=== PATIENT | female | born 1995 | race Caucasian/White ===

== ENCOUNTER 2018-02-21 02:45 | Outpatient (CLI) | payer OTHER, SELFPAY ==
[2018-02-21 02:58] VITALS: BMI 27.6
[2018-02-21 03:08] LABS: Microscopic, Urine URINE MICROSCOPIC (MICROSCOPIC)
[2018-02-21 03:09] LABS: Appearance,Urine CLEAR (Clear); Bilirubin,Urine Negative (Negative); Blood, Urine TRACE-I (Negative); Color,Urine YELLOW (Yellow); Glucose,Urine (UA) Negative (Negative); Ketones,Urine Negative (Negative); Leukocyte Esterase,Urine 1+ (Negative); Nitrate,Urine Negative (Negative); Protein,Urine Negative (Negative); Specific Gravity, Urine 1.015 (1.005-1.030)
[2018-02-21 03:11] VITALS: BP 103/58; PULSE 82; RESP 16; TEMP 37.1; O2SAT 99; BMI 27.6
[2018-02-21 03:17] LABS: Amphetamine/Metha Screen,Urine Negative ng/mL (<1000); Barbiturates Screen,Urine Negative ng/mL (<200); Benzodiazepines Screen,Urine Negative ng/mL (200); Cannabinoid Screen,Urine Negative ng/mL (<50); Cocaine Screen,Urine Negative ng/g (<300); Methadone Screen,Urine Negative ng/mL (<300); Opiate Screen,Urine Negative ng/mL (<300); Phencyclidine Screen,Urine Negative ng/mL (<25)
[2018-02-21 03:19] LABS: Bacteria,Urine 1+ /lpf; Mucus,Urine 1+ /lpf
== END 2018-02-21 03:32 | disposition home or self-care (01) ==
LOC: OBOUT 02:49 → OB 02:51
PROVIDERS: Visit Provider Obstetrics & Gynecology
DX: O36.8120 Decreased fetal movements, second trimester, not applicable or unspecified (principal); Z3A.22 22 weeks gestation of pregnancy
CPT/HCPCS: 80305; 81001; 87086

== ENCOUNTER 2020-05-14 13:00 | Emergency (ER) | payer BC, SELFPAY ==
[2020-05-14 13:23] VITALS: BP 108/68; PULSE 113; RESP 16; TEMP 37.1; O2SAT 98; BMI 22.4
--- NOTE | 2020-05-14 13:57 | HMH.EDUTC ---
[facility] [place] Impression: Viral syndrome, Bronchitis Disposition: Home, Self-Care Condition on Discharge: Good Instructions: DI for Viral Syndrome Additional Instructions: Drink plenty of fluids. Take tylenol for pain or fever. Take the medications as directed. Follow up with your regular doctor. GO TO THE ER FOR ANY WORSENING SYMPTOMS FOLLOW THE DIRECTIONS ON THE COVID-19 HAND OUT THAT WE GAVE YOU REGARDING SELF-ISOLATION UNTIL YOU KNOW YOUR COVID-19 RESULTS Prescriptions: Brompheniramine/Pseudoephed/Dm [Bromfed Dm Cough Syrup] 5 ml PO Q6HP PRN #240 syrup PRN Reason: Cough Transmission Status: Received by [facility] #[id number] Ondansetron [Zofran 4mg ODT] 4 mg PO Q8HP PRN #10 tab.rapdis PRN Reason: Nausea Transmission Status: Received by [facility] #[id number] Cefdinir [Omnicef 300mg Capsule] 300 mg PO BID #20 cap Transmission Status: Received by [facility] #[id number] Referrals: Reuben Beauchamp MD [Primary Care Provider] - Forms: Work/School Release Time of Disposition: 14:00 Medical Decision Making - Medical Records Medical records reviewed: No: I reviewed the patient's medical records. - Brayan Inquiry Pt receiving controlled substance: No Vital Signs: 05/14/20 13:23 05/14/20 14:13 Temperature 98.8 F 98.8 F Temperature Source Oral Pulse Rate 113 H Pulse Rate [Right Brachial] 113 H Respiratory Rate 16 16 Blood Pressure 108/68 L Blood Pressure [Right Arm] 108/68 L Blood Pressure Mean [Right Arm] 81 Blood Pressure Source [Right Arm] Automatic Cuff Blood Pressure Position [Right Arm] Sitting 02 Sat by Pulse Oximetry 98 Oxygen Delivery Method Room Air - Lab Data Lab results reviewed: Yes: I reviewed the patient's lab results. Lab Results 05/14/20 13:17: Strep Scn [facility] Negative 05/14/20 13:25: COVID-19 PCR Not detected 05/14/20 13:45: Influenza Type A Ag Negative, Influenza Type B Ag Negative 05/14/20 14:30: Chlamy pneumoniae PCR Not detected, Adenovirus (PCR) Not detected, B. pertussis DNA (PCR) Not detected, Coronavirus OC43 (PCR) Not detected, Coronavirus HKU1 (PCR) Not detected, Coronavirus 229E (PCR) Not detected, Coronavirus NL63 (PCR) Not detected, Human Metapneumovir PCR Not detected, Influenza A (H1) PCR Not detected, Influ A (H1N1/09) PCR Not detected, Influenza A (H3) PCR Not detected, Influenza Type A (PCR) Not detected, Influenza Type B (PCR) Not detected, M. pneumoniae (PCR) Not detected, Parainfluenza 1 (PCR) Not detected, Parainfluenza 2 (PCR) Not detected, Parainfluenza 3 (PCR) Not detected, Parainfluenza 4 (PCR) Not detected, RSV (PCR) Not detected, Entero/Rhino (PCR) Detected [facility] [place] - General Stated complaint: cough,fever,runny nose,nose Time Seen by Provider: 05/14/20 13:30 Mode of Arrival: Ambulatory Source of Information: Patient Limitations: No Limitations Description of Symptoms (Recalled from Triage Doc. by RN): PATIENT C/O COUGH, FEVER, NAUSEA, RUNNY NOSE, CHILLS, AND MUSCLE ACHES HEENT Symptoms (Recalled from RN notes): No Resp Symptoms (Recalled from RN notes): Yes Skin Symptoms (Recalled from RN notes): No MS Symptoms (Recalled from RN notes): Yes Functional Status (Recalled from RN notes): wnl - History of Present Illness Provider Complaint: She c/o around 10 days of upper respiratory congestion, fever up to 102.8, feeling bad and a cough. - Related Data Previous Rx's Medication Instructions Recorded Brompheniramine/Pseudoephed/Dm 5 ml PO Q6HP PRN #240 syrup 05/14/20 [Bromfed Dm Cough Syrup] Cefdinir [Omnicef 300mg Capsule] 300 mg PO BID #20 cap 05/14/20 Ondansetron [Zofran 4mg ODT] 4 mg PO Q8HP PRN #10 tab.rapdis 05/14/20 Allergies Allergy/AdvReac Type Severity Reaction Status Date / Time erythromycin base Allergy Intermediate WHIVES AND Verified 06/20/18 04:52 [From ERYTHROCIN] FEVER Sulfa (Sulfonamide Allergy Mild Verified 07/21/19 21:49 Antibiotic
[2020-05-14 14:13] VITALS: BP 108/68; PULSE 113; RESP 16; TEMP 37.1; O2SAT 98
[2020-05-14 14:23] LABS: UTC Strep Screen (Rapid) Negative (Negative)
[2020-05-14 14:24] LABS: UTC Influenza A Antigen Negative (Negative); UTC Influenza B Antigen Negative (Negative)
[2020-05-14 14:41] LABS: Adenovirus,PCR Not Detected (NotDetected); Bordetella Pertussis Not Detected (NotDetected); Chlamydophila Pneumoniae, PCR Not Detected (NotDetected); Coronavirus 229E Not Detected (NotDetected); Coronavirus NL63 Not Detected (NotDetected); Coronavirus OC43 Not Detected (NotDetected); Coronovirus HKU1,PCR Not Detected (NotDetected); Human Metapneumovirus Not Detected (NotDetected); Influenza A, PCR Not Detected (NotDetected); Influenza AH1, 2009 Not Detected (NotDetected); Influenza AH1, PCR Not Detected (NotDetected); Influenza AH3,PCR Not Detected (NotDetected); Influenza B, PCR Not Detected (NotDetected); Mycoplasma Pneumoniae, PCR Not Detected (NotDetected); Parainfluenza 1, PCR Not Detected (NotDetected); Parainfluenza 2, PCR Not Detected (NotDetected); Parainfluenza 3, PCR Not Detected (NotDetected); Parainfluenza 4, PCR Not Detected (NotDetected); Respiratory Syncytial Virus Not Detected (NotDetected)
[2020-05-14 15:59] LABS: Rhinovirus/Enterovirus Detected (NotDetected)
[2020-05-16 00:25] LABS: Covid-19 Nasal PCR Sendout Lex NOT DETECTED
== END 2020-05-14 14:18 | disposition home or self-care (01) ==
PROVIDERS: Emergency Provider Nurse Practitioner Family; PCP Family Medicine
DX: B34.9 Viral infection, unspecified (principal); J20.9 Acute bronchitis, unspecified; Z03.818 Encounter for observation for suspected exposure to other biological agents ruled out; Z88.1 Allergy status to other antibiotic agents; Z88.2 Allergy status to sulfonamides
CPT/HCPCS: 87486; 87581; 87633; 87798; 87804; 87880; 99202; U0004

== ENCOUNTER 2020-07-14 17:51 | Emergency (ER) | payer BC, SELFPAY ==
--- NOTE | 2020-07-14 18:49 | HMH.EDUTC ---
[facility] [place] Clinical Impression: Amenorrhea Disposition: Home, Self-Care Condition on Discharge: Good Instructions: DI for Amenorrhea Additional Instructions: Follow up with your primary care doctor. GO TO THE ER FOR ANY WORSENING OR LIFE THREATENING SYMPTOMS Referrals: Reuben Beauchamp MD [Primary Care Provider] - Time of Disposition: 19:53 Medical Decision Making - Medical Records Medical records reviewed: No: I reviewed the patient's medical records. - Brayan Inquiry Pt receiving controlled substance: No Vital Signs: 07/14/20 18:55 07/14/20 19:54 Temperature 98.0 F 98.0 F Temperature Source Oral Pulse Rate 88 Pulse Rate [Right Brachial] 88 Respiratory Rate 16 16 Blood Pressure 120/66 Blood Pressure [Right Arm] 120/66 Blood Pressure Mean [Right Arm] 84 Blood Pressure Source [Right Arm] Automatic Cuff Blood Pressure Position [Right Arm] Sitting 02 Sat by Pulse Oximetry 100 Oxygen Delivery Method Room Air - Lab Data Lab results reviewed: Yes: I reviewed the patient's lab results. Lab Results 07/14/20 18:45: Serum HCG, Qual Negative [facility] [place] - General Stated complaint: test Time Seen by Provider: 07/14/20 18:49 - History of Present Illness Provider Complaint: She states that over the past 2 days, she has had 2 positive and 1 negative urine test at home. She would like to have blood drawn to check. - Related Data Allergies Allergy/AdvReac Type Severity Reaction Status Date / Time erythromycin base Allergy Intermediate WHIVES AND Verified 06/20/18 04:52 [From ERYTHROCIN] FEVER Sulfa (Sulfonamide Allergy Mild Verified 07/21/19 21:49 Antibiotics) [facility] History - Hepatitis A Screen Attestation statement:: This patient has been screened for Hepatitis A risk factors. I have reviewed the patient's past medical history: Yes Medical History: Denies:: Cancer, Diabetes Mellitus Type 1, MRSA Laterality Cases: Bilateral: Tonsillectomy Other Surgeries: No: Amputation: No Fractures: No - Social History Alcohol Intake: never Occupational Status: other ROS Obtained: Yes All systems reviewed & no additional complaints - Constitutional Constitutional: Reports system reviewed and no additional complaints, except as docu, Denies chills, Denies fever(s) - Eyes Eyes: Reports system reviewed and no additional complaints, except as docu - ENT Ears, Nose, Mouth, and Throat: Reports system reviewed and no additional complaints, except as docu - Cardiovascular Cardiovascular: Reports system reviewed and no additional complaints, except as docu - Respiratory Respiratory: Yes system reviewed and no additional complaints, except as docu - Gastrointestinal Gastrointestingal: Reports: system reviewed and no additional complaints, except as docu - Musculoskeletal Musculoskeletal: Denies back pain - Integumentary/Breasts Skin/Breast: Denies redness, Denies rash, Denies wounds Physical Exam - General General appearance: alert, in no apparent distress - Head Head exam: atraumatic, normocephalic, normal inspection - Eye Eye exam: Present: normal appearance, PERRL, EOMI - ENT ENT exam: Present: normal exam, normal oropharynx, mucous membranes moist, TM's normal bilaterally, normal external ear exam - Neck Neck exam: Present: normal inspection, full ROM, trachea midline. Absent: meningismus, lymphadenopathy - Chest Chest inspection: Present: normal inspection, symmetric chest wall rise. Absent: tenderness - Respiratory Respiratory exam: Present: normal lung sounds bilaterally. Absent: respiratory distress - Cardiovascular Cardiovascular exam: Present: regular rate, normal rhythm. Absent: JVD - Abdominal Exam Abdominal exam: Present: soft, normal bowel sounds. Absent: distention, tenderness, guarding - Extremities Exam Extremities exam: Present: normal inspection, full ROM, normal capillary refill.
[2020-07-14 18:55] VITALS: BP 120/66; PULSE 88; RESP 16; TEMP 36.7; O2SAT 100; BMI 22.1
[2020-07-14 19:25] LABS: HCG Qualitative, Serum Negative (Negative)
[2020-07-14 19:54] VITALS: BP 120/66; PULSE 88; RESP 16; TEMP 36.7; O2SAT 100
== END 2020-07-14 19:57 | disposition home or self-care (01) ==
PROVIDERS: Emergency Provider Nurse Practitioner Family; PCP Family Medicine
DX: N91.2 Amenorrhea, unspecified (principal); Z32.02 Encounter for pregnancy test, result negative
CPT/HCPCS: 84703; 99202

== ENCOUNTER → 2020-08-05 14:26 | Outpatient (CLI) | payer BC, SELFPAY ==
--- NOTE | 2020-08-05 14:43 | US_ITS ---
PROCEDURE: US TRANSVAGINAL CLINICAL INDICATION: ABD PAIN,? COMPARISON: No exams were available for comparison FINDINGS: UTERUS: 9cm x 6cmx 5cm with a combined endometrial thickness of 6mm LEFT OVARY: [id number] with a volume of 3.6ml. RIGHT OVARY: [id number] with a volume of 18.9ml. No intrauterine gestational sac is evident. The endometrium measures 6 mm in thickness. There is a moderate amount free fluid in the pelvis. There are bilateral ovarian follicles. There is a 17 mm right ovarian cyst. Bilateral ovarian blood flow is present. IMPRESSION: 1. No intrauterine gestational sac apparent. Could be too early to see a gestational. Ectopic may also be seen with a positive test and an empty uterus. Please correlate with clinical parameters. 2. There is a moderate amount free fluid in the pelvis. Dictated by: Xavier Ortez MD 08/05/2020 16:27 Xavier Ortez MD in OV 08/05/2020 16:27
[2020-08-05 15:00] LABS: Basophils % 0.3 % (0.1-2.0); Eosinophils # 0.1 K/mm3 (0.0-0.4); Eosinophils % 0.7 % (0.1-12.0); Hematocrit 42.3 % (37.0-47.0); Hemoglobin 14.3 g/dL (12.2-16.2); Lymphocytes # 2.3 K/mm3 (0.7-4.5); Lymphocytes % 23.4 % (10-50); Mean Corpuscular HGB Conc 33.8 g/dL (31.8-35.4); Mean Corpuscular Hemoglobin 31.6 pg (27.0-31.2); Mean Corpuscular Volume 93.5 fl (81-99); Monocytes # 0.5 K/mm3 (0.1-1.0); Monocytes % 5.3 % (1.7-9.3); Neutrophils # 6.9 K/mm3 (1.8-7.8); Neutrophils % 70.3 % (37.0-80.0); Platelet Count 357 K/mm3 (142-424); Red Blood Count 4.52 M/mm3 (4.20-5.40); Red Cell Distribution Width 13.7 % (11.5-17.5); White Blood Count 9.8 K/mm3 (4.8-10.8)
[2020-08-05 16:02] LABS: Alanine Aminotransferase 13 U/L (12-78); Albumin/Globulin Ratio 1.7 (1.1-1.8); Alkaline Phosphatase 54 U/L (38-126); Anion Gap 15.4 mEq/L (5-15); Aspartate Amino Transferase 23 U/L (14-36); Bilirubin,Total 0.8 mg/dl (0.2-1.3); Blood Urea Nitrogen 13 mg/dl (7-17); Calcium 9.9 mg/dl (8.4-10.2); Carbon Dioxide 26 mmol/L (22.0-30.0); Chloride 102 mmol/L (98-107); Estimated Glomerular Filt Rate 103 ml/min (>60); GFR (African American) 124 ML/MIN (>60); Glucose 84 mg/dl (74-100); Potassium 4.4 mmoL/L (3.5-5.1); Sodium 139 mmol/L (136-145)
[2020-08-05 16:20] LABS: HCG,Quantitative 50 mIU/ml (0-5.42)
== END ==
PROVIDERS: PCP Nurse Practitioner; Visit Provider Nurse Practitioner
DX: R10.31 Right lower quadrant pain (principal); Z32.00 Encounter for pregnancy test, result unknown
CPT/HCPCS: 36415; 76830; 80053; 84702; 85025

== ENCOUNTER → 2020-08-07 13:45 | Outpatient (CLI) | payer BC, SELFPAY ==
[2020-08-07 15:11] LABS: HCG,Quantitative 174 mIU/ml (0-5.42)
== END ==
LOC: LAB 13:45
PROVIDERS: Visit Provider Nurse Practitioner
DX: Z32.00 Encounter for pregnancy test, result unknown (principal)
CPT/HCPCS: 36415; 84702

== ENCOUNTER → 2020-08-10 10:45 | Outpatient (CLI) | payer BC, SELFPAY ==
[2020-08-10 12:04] LABS: HCG,Quantitative 494 mIU/ml (0-5.42)
== END ==
PROVIDERS: Visit Provider Obstetrics & Gynecology
DX: Z34.90 Encounter for supervision of normal pregnancy, unspecified, unspecified trimester (principal)
CPT/HCPCS: 36415; 84702

== ENCOUNTER 2020-11-01 11:18 | Emergency (ER) | payer BC, SELFPAY ==
[2020-11-01 11:20] VITALS: BP 102/68; PULSE 86; RESP 19; TEMP 37.1; O2SAT 98; BMI 22.3
--- NOTE | 2020-11-01 11:36 | HMH.EDUTC ---
[facility] [place] Clinical Impression: Exposure to COVID-19 virus Disposition: Home, Self-Care Condition on Discharge: Good Instructions: DI for COVID-19 (Suspected or Confirmed ), Coronavirus Disease 2019, Preventing the Spread of Coronavirus Discharge Instructions Additional Instructions: *Monitor Temp, Over the counter Motrin or Tylenol as directed/as needed Tylenol every 4 hours and Motrin every 6 hours (as long as your family doctor has told you that you can take it) for fever or pain. and straight to ER if unable to lower temp less than 101.0 after medication given *Warm salt water gargles may help to soothe the throat *Throat Lozenges *Warm fluids like tea with honey may help to soothe the throat *Sleep elevated *Humidifier/Vaporizer Phenergan as prescribed by OBGYN Follow up IMMEDIATELY for new or worsening symptoms or no Noticeable improvement over the next 48-72 hours. 911 for difficulty breathing or swallowing You were tested for today for COVID19 your test result should be back in the next 24-48 hours, you may call to the [facility] to see if your test results are back in the next 48 hours [phone] [facility] hours are 9am-9pm You was given a handout with instructions for Self Quarantine and Self isolation for while you wait on test results and what to do if they are positive If you are positive the Health Dept will be contacting you also Referrals: Reuben Beauchamp MD [Primary Care Provider] - As needed Forms: Work/School Release Time of Disposition: 11:42 Medical Decision Making - Brayan Inquiry Pt receiving controlled substance: No Brayan was queried for this patient: No Vital Signs: 11/01/20 11:20 Temperature 98.7 F Temperature Source Oral Pulse Rate [Right Brachial] 86 Respiratory Rate 19 Blood Pressure [Right Arm] 102/68 L Blood Pressure Mean [Right Arm] 79 Blood Pressure Source [Right Arm] Automatic Cuff Blood Pressure Position [Right Arm] Sitting 02 Sat by Pulse Oximetry 98 Oxygen Delivery Method Room Air Orders (Tests/Meds): ORDERS Category Date Time Status Covid-19 Nasal PCR ([facility]) Routine Lab 11/01/20 11:30 Received [facility] HPI - General Stated complaint: cov test Time Seen by Provider: 11/01/20 11:36 Mode of Arrival: Ambulatory Source of Information: Patient Limitations: No Limitations Description of Symptoms (Recalled from Triage Doc. by RN): COVID TEST D/T EXPOSURE. C/O NAUSEA, VOMITING, HEADACHE, DIARRHEA SINCE SUNDAY HEENT Symptoms (Recalled from RN notes): No Resp Symptoms (Recalled from RN notes): No Skin Symptoms (Recalled from RN notes): No MS Symptoms (Recalled from RN notes): No Functional Status (Recalled from RN notes): WNL - History of Present Illness Provider Complaint: Patient state that she is 16wks OB State that she was recently around her exwife and she tested positive for COVID States that also her daughter that has been around the ex has also been sick States that she has been having headache, nausea, vomiting and diarrhea and achy like headache States that she was given Phenergan by her OBGYN and has helped with her N/V but wanted to get tested - Related Data Previous Rx's Medication Instructions Recorded prenat.vits,lawanda,vki-tyax-apjub 1 tab PO DAILY #30 tab 08/10/20 Allergies Allergy/AdvReac Type Severity Reaction Status Date / Time erythromycin base Allergy Intermediate WHIVES AND Verified 08/10/20 11:23 [From ERYTHROCIN] FEVER Sulfa (Sulfonamide Allergy Mild Verified 08/10/20 11:23 Antibiotics) - Worker's Comp Is this a Worker's Comp case?: No [facility] History - Hepatitis A Screen Drug use history?: No High risk sexual behaviors?: No History of sexually transmitted infection?: No Currently employed?: No Childcare worker?: No Do you have indoor plumbing?: Yes Do you have electricity?: Yes Attestation statement:: This patient has been screened for Hepatitis A risk factors. I have reviewed the patient's past medical history
[2020-11-01 11:42] VITALS: BP 102/68; PULSE 86; RESP 19; TEMP 37.1; O2SAT 98
== END 2020-11-01 11:47 | disposition home or self-care (01) ==
PROVIDERS: Emergency Provider Nurse Practitioner; PCP Family Medicine
DX: Z20.822 Contact with and (suspected) exposure to COVID-19 (principal); O21.0 Mild hyperemesis gravidarum; Z3A.15 15 weeks gestation of pregnancy
CPT/HCPCS: 99202; G0463; U0003

== ENCOUNTER 2021-07-03 10:15 | Emergency (ER) | payer BC, SELFPAY ==
[2021-07-03 10:20] VITALS: BP 104/71; PULSE 91; RESP 20; TEMP 37; O2SAT 99; BMI 20.5
[2021-07-03 10:42] LABS: Adenovirus,PCR Not Detected (NotDetected); Bordetella Pertussis Not Detected (NotDetected); Chlamydophila Pneumoniae, PCR Not Detected (NotDetected); Coronavirus 19, PCR Not Detected (NotDetected); Coronavirus 229E Not Detected (NotDetected); Coronavirus NL63 Not Detected (NotDetected); Coronavirus OC43 Not Detected (NotDetected); Coronovirus HKU1,PCR Not Detected (NotDetected); Human Metapneumovirus Not Detected (NotDetected); Influenza A, PCR Not Detected (NotDetected); Influenza AH1, 2009 Not Detected (NotDetected); Influenza AH1, PCR Not Detected (NotDetected); Influenza AH3,PCR Not Detected (NotDetected); Influenza B, PCR Not Detected (NotDetected); Mycoplasma Pneumoniae, PCR Not Detected (NotDetected); Parainfluenza 1, PCR Not Detected (NotDetected); Parainfluenza 2, PCR Not Detected (NotDetected); Parainfluenza 3, PCR Not Detected (NotDetected); Parainfluenza 4, PCR Not Detected (NotDetected); Respiratory Syncytial Virus Not Detected (NotDetected)
--- NOTE | 2021-07-03 10:59 | HMH.EDUTC ---
[facility] [place] Clinical Impression: Strep throat Disposition: Home, Self-Care Condition on Discharge: Good Instructions: DI for Strep Throat, Strep Throat, Amoxicillin Additional Instructions: *Monitor Temp, Over the counter Motrin or Tylenol as directed/as needed Tylenol every 4 hours and Motrin every 6 hours (as long as your family doctor has told you that you can take it) for fever or pain. and straight to ER if unable to lower temp less than 101.0 after medication given *Warm salt water gargles may help to soothe the throat *Throat Lozenges *Warm fluids like tea with honey may help to soothe the throat *Sleep elevated *Humidifier/Vaporizer Follow up IMMEDIATELY for new or worsening symptoms or no Noticeable improvement over the next 48-72 hours. 911 for difficulty breathing or swallowing You were tested for today for COVID19 your test result should be back in the next 24-48 hours, you was given handout on how to log onto the [facility] portal to view your results if you have trouble logging on you may call the [facility] You was given a handout with instructions for Self Quarantine and Self isolation for while you wait on test results and what to do if they are positive If you are positive the Health Dept will be contacting you also Make sure to take your Vitamins Vit. C Vit D and Zinc if you can take them Prescriptions: Amoxicillin [Amoxicillin 500mg Cap] 500 mg PO TID #30 cap Transmission Status: Pending to [id number] Referrals: Reuben Beauchamp MD [Primary Care Provider] - As needed Time of Disposition: 11:04 Medical Decision Making - Brayan Inquiry Pt receiving controlled substance: No Brayan was queried for this patient: No Vital Signs: 07/03/21 10:20 Temperature 98.6 F Temperature Source Oral Pulse Rate [Right Brachial] 91 H Respiratory Rate 20 Blood Pressure [Right Arm] 104/71 L Blood Pressure Mean [Right Arm] 82 Blood Pressure Source [Right Arm] Automatic Cuff Blood Pressure Position [Right Arm] Sitting 02 Sat by Pulse Oximetry 99 Oxygen Delivery Method Room Air - Lab Data Lab results reviewed: Yes: I reviewed the patient's lab results. Orders (Tests/Meds): ORDERS Category Date Time Status Full Resp Panel w/COVID ([facility]) Routine Lab 07/03/21 10:30 Received Medical Decision Narrative: Patient reports that she is breast feeding per epocrates Amoxicillin safe for use in [facility] [place] HPI - General Stated complaint: covid symptoms/exposure Time Seen by Provider: 07/03/21 10:59 Mode of Arrival: Ambulatory Source of Information: Patient Limitations: No Limitations Description of Symptoms (Recalled from Triage Doc. by RN): PATIENT C/O COUGH, SORE THROAT, HEADACHE, NAUSEA, AND SOA SINCE YESTERDAY HEENT Symptoms (Recalled from RN notes): Yes Resp Symptoms (Recalled from RN notes): Yes Skin Symptoms (Recalled from RN notes): No MS Symptoms (Recalled from RN notes): No Functional Status (Recalled from RN notes): WNL - History of Present Illness Provider Complaint: Patient states that she has been having sore throat, pain in right ear, sinus pressure and cough States that she feels like at times its hard to catch her breath after coughing States that today she was still feeling worse so she came in to get checked - Related Data Previous Rx's Medication Instructions Recorded Amoxicillin [Amoxicillin 500mg 500 mg PO TID #30 cap 07/03/21 Cap] Allergies Allergy/AdvReac Type Severity Reaction Status Date / Time erythromycin base Allergy Intermediate WHIVES AND Verified 08/10/20 11:23 [From ERYTHROCIN] FEVER Sulfa (Sulfonamide Allergy Mild Verified 08/10/20 11:23 Antibiotics) - Worker's Comp Is this a Worker's Comp case?: No [facility] History - Hepatitis A Screen Drug use history?: No High risk sexual behaviors?: No History of sexually transmitted infection?: No Currently employed?: No Childcare worker?: No Do you have indoo
[2021-07-03 11:02] LABS: UTC Strep Screen (Rapid) Positive (Negative)
[2021-07-03 11:18] VITALS: BP 104/71; PULSE 91; RESP 20; TEMP 37; O2SAT 99
[2021-07-03 11:58] LABS: Rhinovirus/Enterovirus Detected (NotDetected)
== END 2021-07-03 11:22 | disposition home or self-care (01) ==
PROVIDERS: Emergency Provider Nurse Practitioner; PCP Family Medicine
DX: J02.0 Streptococcal pharyngitis (principal); Z88.2 Allergy status to sulfonamides
CPT/HCPCS: 87581; 87632; 87798; 87880; 99203; C9803; G0463; U0003; U0005

== ENCOUNTER → 2021-08-17 10:20 | Outpatient (CLI) | payer BC, SELFPAY ==
--- NOTE | 2021-08-17 10:24 | XR_ITS ---
PROCEDURE: XR ELBOW RT MIN 3V CLINICAL INDICATION: ABSCESS OF RT UPPER EXTREMITY COMPARISON: No exams were available for comparison FINDINGS: No fracture or dislocation. No lytic or blastic change. There is normal mineralization. The joint spaces are well-preserved. No significant degenerative/arthritic changes. No erosive changes evident. Other findings:There is mild soft tissue swelling along the dorsal aspect of the proximal forearm. No soft tissue gas apparent. IMPRESSION: Soft tissue swelling along the dorsal and proximal aspect of the forearm otherwise negative Dictated by: Xavier Ortez MD 08/17/2021 16:42 Xavier Ortez MD in [place] 08/17/2021 16:42
== END ==
PROVIDERS: PCP Family Medicine; Visit Provider Physician Assistant
DX: L02.413 Cutaneous abscess of right upper limb (principal); B95.8 Unspecified staphylococcus as the cause of diseases classified elsewhere
CPT/HCPCS: 73080; 87070; 87077; 87186; 87205

== ENCOUNTER → 2021-08-19 13:54 | Outpatient (CLI) | payer BC, SELFPAY | PROVIDERS: Visit Provider Orthopaedic Surgery | DX: S51.002A Unspecified open wound of left elbow, initial encounter (principal) | CPT/HCPCS: 87070; 87075; 87077; 87186; 87205 ==

== ENCOUNTER → 2021-08-29 12:59 | Outpatient (CLI) | payer BC, SELFPAY | PROVIDERS: PCP Family Medicine; Visit Provider Family Medicine | DX: Z20.822 Contact with and (suspected) exposure to COVID-19 (principal) | CPT/HCPCS: C9803; U0003; U0005 ==

== ENCOUNTER → 2021-09-26 08:01 | Outpatient (CLI) | payer BC, SELFPAY | PROVIDERS: PCP Family Medicine; Visit Provider Nurse Practitioner | DX: U07.1 COVID-19 (principal) | CPT/HCPCS: C9803; U0003; U0005 ==

== ENCOUNTER → 2021-12-20 16:23 | Outpatient (CLI) | payer BC, SELFPAY | PROVIDERS: PCP Physician Assistant; Visit Provider Physician Assistant | DX: Z20.822 Contact with and (suspected) exposure to COVID-19 (principal) | CPT/HCPCS: C9803; U0003; U0005 ==

== ENCOUNTER 2022-02-11 12:17 | Emergency (ER) | payer BC, SELFPAY ==
[2022-02-11 12:40] VITALS: BP 92/54; PULSE 87; RESP 22; TEMP 36.6; O2SAT 100; BMI 21.5
[2022-02-11 13:16] LABS: Adenovirus,PCR Not Detected (NotDetected); Bordetella Pertussis Not Detected (NotDetected); Chlamydophila Pneumoniae, PCR Not Detected (NotDetected); Coronavirus 229E Not Detected (NotDetected); Coronavirus NL63 Not Detected (NotDetected); Coronavirus OC43 Not Detected (NotDetected); Coronovirus HKU1,PCR Not Detected (NotDetected); Human Metapneumovirus Not Detected (NotDetected); Influenza A, PCR Not Detected (NotDetected); Influenza AH1, 2009 Not Detected (NotDetected); Influenza AH1, PCR Not Detected (NotDetected); Influenza AH3,PCR Not Detected (NotDetected); Influenza B, PCR Not Detected (NotDetected); Mycoplasma Pneumoniae, PCR Not Detected (NotDetected); Parainfluenza 1, PCR Not Detected (NotDetected); Parainfluenza 2, PCR Not Detected (NotDetected); Parainfluenza 3, PCR Not Detected (NotDetected); Parainfluenza 4, PCR Not Detected (NotDetected); Respiratory Syncytial Virus Not Detected (NotDetected)
[2022-02-11 13:20] LABS: Strep Scrn Group A (Rapid) Negative (Negative)
--- NOTE | 2022-02-11 13:20 | HMH.EDUTC ---
[facility] [place] Clinical Impression: Left otitis media, Bronchitis, Tonsillitis Disposition: Home, Self-Care Condition on Discharge: Good Instructions: DI for Acute Bronchitis Additional Instructions: Respiratory panel results should be back later today Take all meds as prescribed until gone Rest, fluids Prescriptions: Cefdinir [Omnicef 300mg Capsule] 300 mg PO BID #20 cap [facility] predniSONE [Prednisone 20mg Tab] 20 mg PO BID 5 Days #10 tab Transmission Status: [facility] Albuterol Sulfate [Proventil Hfa] 2 % IH Q4HP PRN 30 Days #1 each PRN Reason: Wheezing Transmission [facility] Referrals: Reuben Beauchamp MD [Primary Care Provider] - Time of Disposition: 13:41 Medical Decision Making - Brayan Inquiry Pt receiving controlled substance: No Vital Signs: 02/11/22 12:40 Temperature 97.9 F Temperature Source Oral Pulse Rate [Left Brachial] 87 Respiratory Rate 22 Blood Pressure [Left Arm] 92/54 L Blood Pressure Mean [Left Arm] 66 Blood Pressure Source [Left Arm] Automatic Cuff Blood Pressure Position [Left Arm] Sitting 02 Sat by Pulse Oximetry 100 Oxygen Delivery Method Room Air - Lab Data Lab results reviewed: Yes: I reviewed the patient's lab results. Orders (Tests/Meds): ORDERS Category Date Time Status Covid-19 Nasal PCR ([facility]) Routine Lab 02/11/22 13:02 Received Strep Scrn Group A (Rapid) Stat Lab 02/11/22 12:59 Received Upper Respiratory Panel, PCR Stat Lab 02/11/22 12:50 Received [facility]PI - General Stated complaint: sore throat,cough Time Seen by Provider: 02/11/22 13:20 Mode of Arrival: Ambulatory Source of Information: Patient Limitations: No Limitations Description of Symptoms (Recalled from Triage Doc. by RN): PATIENT C/O SORE THROAT, RUNNY NOSE AND COUGH. SHE STATES SHE WAS DIAGNOSED WITH EAR INFECTION AND STREP THROAT LAST WEEK AND GIVEN AZITHROMYCIN HEENT Symptoms (Recalled from RN notes): Yes Resp Symptoms (Recalled from RN notes): Yes Skin Symptoms (Recalled from RN notes): No MS Symptoms (Recalled from RN notes): No Functional Status (Recalled from RN notes): WNL - History of Present Illness Provider Complaint: Bilateral ear pain, sinus pain and pressure, congestion X 3 weeks. Treated with azithromycin last week. Pain in right mid back with coughing. Cough is productive. No fever. No vomiting or diarrhea. Onset (ago): week(s) (3) Location: chest Relieving factors: none Exacerbating factors: none Associated symptoms: cough, malaise Treatments prior to arrival: other (azithromycin) - Related Data Previous Rx's Medication Instructions Recorded Albuterol Sulfate [Proventil Hfa] 2 % IH Q4HP PRN 30 Days #1 each 02/11/22 Cefdinir [Omnicef 300mg Capsule] 300 mg PO BID #20 cap 02/11/22 predniSONE [Prednisone 20mg 20 mg PO BID 5 Days #10 tab 02/11/22 Tab] Allergies Allergy/AdvReac Type Severity Reaction Status Date / Time erythromycin base Allergy Intermediate WHIVES AND Verified 08/26/21 08:46 [From ERYTHROCIN] FEVER Sulfa (Sulfonamide Allergy Mild Verified 08/26/21 08:46 Antibiotics) - Worker's Comp Is this a Worker's Comp case?: No [facility] History - Hepatitis A Screen Attestation statement:: This patient has been screened for Hepatitis A risk factors. I have reviewed the patient's past medical history: Yes Medical History: Denies:: Cancer, Diabetes Mellitus Type 1, MRSA Laterality Cases: Bilateral: Tonsillectomy Other Surgeries: No: Amputation: No Fractures: No Comment: left knee - Social History Smoking Status: Never smoker Alcohol Intake: never Substance Use Type: denies use Occupational Status: other Family Hx:: Cancer, Diabetes, Asthma, Coronary Artery Disease, Anemia ROS Obtained: Yes All systems reviewed & no additional complaints - Constitutional Constitutional: Reports body ache, Repor
[2022-02-11 13:44] VITALS: BP 92/54; PULSE 87; RESP 22; TEMP 36.6; O2SAT 100
[2022-02-11 17:08] LABS: Rhinovirus/Enterovirus Detected (NotDetected)
== END 2022-02-11 13:50 | disposition home or self-care (01) ==
PROVIDERS: Emergency Provider Physician Assistant; PCP Family Medicine
DX: H66.92 Otitis media, unspecified, left ear (principal); J20.9 Acute bronchitis, unspecified; J03.90 Acute tonsillitis, unspecified; Z88.2 Allergy status to sulfonamides
CPT/HCPCS: 87430; 87486; 87581; 87632; 87798; 99213; C9803; G0463; U0003; U0005

== ENCOUNTER → 2022-06-02 11:54 | Outpatient (CLI) | payer BC, SELFPAY | LOC: RT 11:56 | PROVIDERS: PCP Family Medicine; Visit Provider Physician Assistant | DX: R00.2 Palpitations (principal) | CPT/HCPCS: 93225; 93226 ==

== ENCOUNTER → 2022-06-08 11:02 | Outpatient (CLI) | payer BC, SELFPAY ==
--- NOTE | 2022-06-08 11:04 | CA_ITS ---
APPROVED REPORT EXAM: Comprehensive 2D, Doppler, and color-flow Echocardiogram Air Press Operator: CLAUDIA Calhoun, RVS Ht: 5 ft 1 in Wt: 126lbs BSA: 1.55 BP: 95/59 mmHg Indications: Palpitations, Half sister with ToF 2D Dimensions Aortic Root 2.41 cm LA Volume 28.80 mL Left Atrium 2.35 cm LA Volume Index 18.60 mL/m2 (M/F) 16-34 LVOT 1.82 cm (M/F) 1.5-2.5 M-Mode Dimensions RVDd 1.92 cm (0.9-2.6) LA Diam 2.22 cm (1.9-4.0) LVDd 4.66 cm (3.5-5.7) Ao Diam 2.71 cm (2.0-3.7) LVDs 3.11 cm (3.5-5.7) IVSd 0.52 cm (0.6-1.1) PWd 0.52 cm (0.6-1.1) EF (Teich) 61.90% EPSs 0.54 cm FS 33.30% EDV (Teich) 100.30 mL TAPSE 2.23 (<1.7) ESV (Teich) 38.20 mL LV Diastology E Decel Time 210.00 (160-240 msec) E/A Ratio 1.87 MED E' 12.70 (< 7 cm/sec) MED A' 8.80 cm/s E'/MED E' Ratio 6.83 (>14) LAT E' 19.30 (<10 cm/sec) LAT A' 11.70 cm/s E/LAT E' Ratio 4.50 (>14) Aortic Valve LVOT Max 83.00 (70-110 cm/s) LVOT VTI 18.76 cm AoV Peak German. 104.00 (50-130 cm/s) AO Peak GR. 4.40 mmHg AO Mean GR. 2.20 (<5 mmHg) AO VTI 21.83 (18-25 cm) DANIELA (VTI) 2.24 (2.5-4.5 cm2) Mitral Valve MV A Velocity 46.00 (40-130 cm/s) E/A Ratio 1.87 MV Decel. Time 210.00 (160-240 ms) MV PHT 63.00 ms Pulmonary Valve PV Peak Velocity 81.00 (50-150 cm/s) Tricuspid Valve TR P. Velocity 187.00 cm/s RAP Estimate 10.00 mmHg RVSP 24.00 mmHg Left Ventricle Left atrium is normal size left ventricle is normal size there is no concentric left ventricular hypertrophy, estimated ejection fraction 55% with no regional wall motion abnormality, diastolic parameters are within normal range. Right Ventricle Right atrium and right ventricle are normal size and contractility. Aortic Valve Aortic valve is grossly normal there is no aortic stenosis aortic insufficiency. Mitral Valve Mitral valve is grossly normal there is trace mitral regurgitation. Tricuspid Valve Tricuspid grossly normal, there is trace tricuspid regurgitation. Pulmonic Valve Pulmonic valve is poorly visualized. Great Vessels Aortic root is normal size. Inferior vena cava is normal size with normal inspiratory collapse. Pericardium No significant pericardial effusion noted. Conclusion 1. Normal left ventricular size preserved left ventricular systolic function, estimated ejection fraction 55% with no regional wall motion abnormality, diastolic parameters are within normal range. 2. Trace mitral and tricuspid regurgitation. 3. No significant pericardial effusion. 4. Inferior vena cava is normal size with normal inspiratory collapse. Electronically signed by : Huber Wolfe MD 06/09/2022 10:30:50
== END ==
PROVIDERS: PCP Physician Assistant; Visit Provider Physician Assistant
DX: R00.2 Palpitations (principal)
CPT/HCPCS: 93306

== ENCOUNTER 2022-06-21 16:00 | Emergency (ER) | payer BC, SELFPAY ==
--- NOTE | 2022-06-21 16:44 | EXP.UTC ---
Discharge Plan Disposition Patient Disposition: Home, Self-Care Condition: Good Prescriptions Prescriptions: No Action prednisone 20 MG tablet 20 mg PO BID 5 Days Qty: 10 0RF albuterol sulfate 6.7 GM HFA aerosol inhaler 2 % IH Q4HP PRN (Reason: Wheezing) 30 Days Qty: 1 0RF cefdinir 300 MG capsule 300 mg PO BID Qty: 20 0RF Referrals Follow up/Referrals: Reuben Beauchamp MD [Primary Care Provider] - See instructions Activity Restrictions/Add. Instructions Additional Instructions/Restrictions: *Monitor Temp, Over the counter Motrin or Tylenol as directed/as needed Tylenol every 4 hours and Motrin every 6 hours (as long as your family doctor has told you that you can take it) for fever or pain. and straight to ER if unable to lower temp less than 101.0 after medication given *Warm salt water gargles may help to soothe the throat *Throat Lozenges? *Warm fluids like tea with honey may help to soothe the throat? *Sleep elevated *Humidifier/Vaporizer Your throat swab was sent for culture. Those results are typically sent to your primary care. Be sure to follow up in 2-3 days with your family doctor/primary care physician if no improvement so they can review those result and treat if necessary. If you don?t have a primary care doctor, I recommend you get one but in the mean time, you will have to return to a walk in clinic Follow up IMMEDIATELY for new or worsening symptoms or no Noticeable improvement over the next 48-72 hours. 911 for difficulty breathing or swallowing You were tested for today for Upper Respiratory Panel with COVID19 your test result should be back in the next 24-48 hours, you may check your results on the [facility] My Health Portal Make sure to take your Vitamins Vit. 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 States that she has been around her and now she is starting to have sore throat, nasal congestion, runny nose and headache States that when she started feeling bad and her kids was having similar symptoms they came in to get checked and tested Related Data Previous Rx's Medication Instructions Recorded albuterol sulfate 90 mcg/actuation 2 % inhalation Q4HP PRN Wheezing 02/11/22 aerosol inhaler 30 days #1 ea cefdinir 300 mg capsule 300 mg PO BID #20 caps 02/11/22 prednisone 20 mg tablet 20 mg PO BID 5 days #10 tabs 02/11/22 Allergies Allergy/AdvReac Type Severity Reaction Status Date / Time erythromycin base Allergy Intermediate WHIVES AND Verified 08/26/21 08:46 [From ERYTHROCIN] FEVER Sulfa (Sulfonamide Allergy Mild Verified 08/26/21 08:46 Antibiotics) PFSH PFSH Social History Smoking Status: Never smoker second hand exposure: No alcohol intake: never substance use type: denies use current occupational status: other Travel in the last 8 weeks: None ROS Obtained: Yes All systems reviewed & no additional complaints except as documented and Yes Systems reviewed as appropriate & no additional complaints except as documented Constitutional Constitutional: Reports system reviewed and no additional complaints, except as documented, Reports as per HPI, Reports body ache and Reports headache(s) ENT Ears, Nose, Mouth, and Throat: Reports system reviewed and no additional complaints, except as documented, Reports as per HPI, Reports headache(s), Reports nasal congestion, Reports nasal discharge and Reports sore throat Cardiovascular Cardiovascular: Reports system rev
[2022-06-21 16:55] LABS: UTC Influenza A Antigen Negative (Negative); UTC Influenza B Antigen Negative (Negative); UTC Strep Screen (Rapid) Negative (Negative)
[2022-06-21 17:02] VITALS: BP 126/84; PULSE 86; RESP 17; TEMP 36.7; O2SAT 100; BMI 21.4
[2022-06-21 17:17] VITALS: BP 126/84; PULSE 86; RESP 17; TEMP 36.7
[2022-06-21 17:19] LABS: Adenovirus,PCR Not Detected (NotDetected); Bordetella Pertussis Not Detected (NotDetected); Chlamydophila Pneumoniae, PCR Not Detected (NotDetected); Coronavirus 19, PCR Not Detected (NotDetected); Coronavirus 229E Not Detected (NotDetected); Coronavirus NL63 Not Detected (NotDetected); Coronavirus OC43 Not Detected (NotDetected); Coronovirus HKU1,PCR Not Detected (NotDetected); Human Metapneumovirus Not Detected (NotDetected); Influenza A, PCR Not Detected (NotDetected); Influenza AH1, 2009 Not Detected (NotDetected); Influenza AH1, PCR Not Detected (NotDetected); Influenza AH3,PCR Not Detected (NotDetected); Influenza B, PCR Not Detected (NotDetected); Mycoplasma Pneumoniae, PCR Not Detected (NotDetected); Parainfluenza 1, PCR Not Detected (NotDetected); Parainfluenza 2, PCR Not Detected (NotDetected); Parainfluenza 3, PCR Not Detected (NotDetected); Parainfluenza 4, PCR Not Detected (NotDetected); Respiratory Syncytial Virus Not Detected (NotDetected); Rhinovirus/Enterovirus Not Detected (NotDetected)
== END 2022-06-21 17:18 | disposition home or self-care (01) ==
PROVIDERS: Emergency Provider Nurse Practitioner; PCP Family Medicine
DX: J06.9 Acute upper respiratory infection, unspecified (principal); J02.9 Acute pharyngitis, unspecified; R09.89 Other specified symptoms and signs involving the circulatory and respiratory systems; R51.9 Headache, unspecified; Z20.822 Contact with and (suspected) exposure to COVID-19; Z79.51 Long term (current) use of inhaled steroids; Z79.52 Long term (current) use of systemic steroids; Z79.899 Other long term (current) drug therapy; Z88.0 Allergy status to penicillin; Z88.1 Allergy status to other antibiotic agents; Z88.2 Allergy status to sulfonamides; Z88.3 Allergy status to other anti-infective agents
CPT/HCPCS: 87581; 87632; 87798; 87804; 87880; 99213; C9803; G0463; U0003; U0005

== ENCOUNTER 2022-06-28 15:08 | Emergency (ER) | payer BC, SELFPAY ==
[2022-06-28 15:20] VITALS: BP 90/60; PULSE 81; RESP 20; TEMP 37; O2SAT 98; BMI 20.7
--- NOTE | 2022-06-28 15:53 | EXP.UTC ---
Discharge Plan Disposition Patient Disposition: Home, Self-Care Condition: Good Prescriptions Prescriptions: New amoxicillin [amoxicillin] 875 mg tablet 875 mg PO Q12H Qty: 20 0RF benzonatate [benzonatate] 100 mg capsule 100 mg PO TIDP PRN (Reason: Cough) Qty: 30 0RF methylprednisolone 4 mg Tablets,Dose Pack 4 mg PO DIRECTED Qty: 21 0RF ondansetron 4 mg Tablet,Disintegrating 4 mg PO Q8H PRN (Reason: Nausea) Qty: 12 0RF Discontinued prednisone 20 MG tablet 20 mg PO BID 5 Days Qty: 10 0RF cefdinir 300 MG capsule 300 mg PO BID Qty: 20 0RF No Action albuterol sulfate 6.7 GM HFA aerosol inhaler 2 % IH Q4HP PRN (Reason: Wheezing) 30 Days Qty: 1 0RF Referrals Follow up/Referrals: Skye Yanez PA [Primary Care Provider] - See instructions Activity Restrictions/Add. Instructions Additional Instructions/Restrictions: Drink plenty of fluids. Take tylenol or ibuprofen for pain or fever. Take the medications as directed. Follow up with your regular doctor. GO TO THE ER FOR ANY WORSENING SYMPTOMS Clinical Impressions Clinical Impression: Left otitis media, Bronchitis Stand Alone Forms Stand Alone Forms: Work/School Release Instructions Patient Instructions: Middle Ear Infection, Acute Bronchitis Discharge ED Provider: Luis Antonio Cervantes [facility] General Stated complaint: right ear pain, cough, sore throat, congestion Mode of Arrival: Ambulatory Source of Information: Patient Limitations: No Limitations Time Seen by Provider: 06/28/22 15:53 Description of Symptoms (Recalled from Triage Doc. by RN): PATIENT C/O RUNNY NOSE, SORE THROAT, RIGTH EAR PAIN, NAUSEA, FATIGUE, AND SOA X 1 WEEK. RECENTLY EXPOSED TO FLU HEENT Symptoms (Recalled from RN notes): Yes Resp Symptoms (Recalled from RN notes): No Skin Symptoms (Recalled from RN notes): No MS Symptoms (Recalled from RN notes): No Functional Status (Recalled from RN notes): WNL History of Present Illness Provider Complaint: She states that she started feeling bad 1 week ago. She has had sore throat, low grade fever, chills and body aches. Related Data Previous Rx's Medication Instructions Recorded albuterol sulfate 90 mcg/actuation 2 % inhalation Q4HP PRN Wheezing 02/11/22 aerosol inhaler 30 days #1 ea amoxicillin 875 mg tablet 875 mg PO Q12H #20 tabs 06/28/22 benzonatate 100 mg capsule 100 mg PO TIDP PRN Cough #30 caps 06/28/22 methylprednisolone 4 mg tablets in 4 mg PO DIRECTED #21 tabs 06/28/22 a dose pack ondansetron 4 mg disintegrating 4 mg PO Q8H PRN Nausea #12 tabs 06/28/22 tablet Allergies Allergy/AdvReac Type Severity Reaction Status Date / Time erythromycin base Allergy Intermediate WHIVES AND Verified 08/26/21 08:46 [From ERYTHROCIN] FEVER Sulfa (Sulfonamide Allergy Mild Verified 08/26/21 08:46 Antibiotics) Worker's Comp Is this a Worker's Comp case?: No [facility] Medical History Anxiety Migraine Surgical History History of tonsillectomy Social History Smoking Status: Never smoker second hand exposure: No alcohol intake: never substance use type: denies use current occupational status: other Travel in the last 8 weeks: None ROS Obtained: Yes All systems reviewed & no additional complaints except as documented Constitutional Constitutional: Denies chills, Reports fever(s) and Reports poor appetite Eyes Eyes: Denies eye discharge ENT Ears, Nose, Mouth, and Throat: Denies ear discharge, Reports otalgia, Denies hearing loss, Denies sinus pain and Reports sore throat Cardiovascular Cardiovascular: Denies chest pain and Denies dyspnea Respiratory Respiratory: Reports chest congestion, Reports cough and Denies dyspnea Gastrointestinal Gastrointestingal: Denies abdominal pain, diarrhea, nausea or vomi
[2022-06-28 15:57] LABS: UTC Influenza A Antigen Negative (Negative); UTC Influenza B Antigen Negative (Negative); UTC Strep Screen (Rapid) Negative (Negative)
[2022-06-28 16:07] VITALS: BP 90/60; PULSE 81; RESP 20; TEMP 37; O2SAT 98
[2022-06-28 17:07] LABS: Adenovirus,PCR Not Detected (NotDetected); Bordetella Pertussis Not Detected (NotDetected); Chlamydophila Pneumoniae, PCR Not Detected (NotDetected); Coronavirus 19, PCR Not Detected (NotDetected); Coronavirus 229E Not Detected (NotDetected); Coronavirus NL63 Not Detected (NotDetected); Coronavirus OC43 Not Detected (NotDetected); Coronovirus HKU1,PCR Not Detected (NotDetected); Human Metapneumovirus Not Detected (NotDetected); Influenza A, PCR Not Detected (NotDetected); Influenza AH1, 2009 Not Detected (NotDetected); Influenza AH1, PCR Not Detected (NotDetected); Influenza AH3,PCR Not Detected (NotDetected); Influenza B, PCR Not Detected (NotDetected); Mycoplasma Pneumoniae, PCR Not Detected (NotDetected); Parainfluenza 1, PCR Not Detected (NotDetected); Parainfluenza 2, PCR Not Detected (NotDetected); Parainfluenza 3, PCR Not Detected (NotDetected); Parainfluenza 4, PCR Not Detected (NotDetected); Respiratory Syncytial Virus Not Detected (NotDetected); Rhinovirus/Enterovirus Not Detected (NotDetected)
== END 2022-06-28 16:15 | disposition home or self-care (01) ==
PROVIDERS: Emergency Provider Nurse Practitioner Family; PCP Physician Assistant
DX: J40 Bronchitis, not specified as acute or chronic (principal); H92.03 Otalgia, bilateral; R06.02 Shortness of breath; R53.81 Other malaise; R11.0 Nausea; R50.9 Fever, unspecified; Z20.822 Contact with and (suspected) exposure to COVID-19; M79.10 Myalgia, unspecified site; G43.909 Migraine, unspecified, not intractable, without status migrainosus; F41.9 Anxiety disorder, unspecified; Z79.52 Long term (current) use of systemic steroids; Z79.899 Other long term (current) drug therapy; Z88.0 Allergy status to penicillin; Z88.1 Allergy status to other antibiotic agents; Z88.2 Allergy status to sulfonamides; Z88.3 Allergy status to other anti-infective agents
CPT/HCPCS: 87581; 87632; 87798; 87804; 87880; 99212; C9803; G0463; U0003; U0005

== ENCOUNTER 2022-07-31 22:03 | Emergency (ER) | payer BC, SELFPAY ==
[2022-07-31 22:03] VITALS: BP 109/70; PULSE 88; RESP 16; TEMP 36.8; O2SAT 100; BMI 20.9
[2022-07-31 22:37] VITALS: BMI 20.9
[2022-07-31 22:44] LABS: Basophils # 0.1 K/mm3 (0-0.2); Basophils % 0.6 % (0.1-2.0); Eosinophils # 0.1 K/mm3 (0.0-0.4); Eosinophils % 1.7 % (0.1-12.0); Hematocrit 38.6 % (37.0-47.0); Hemoglobin 12.8 g/dL (12.2-16.2); Lymphocytes # 2.1 K/mm3 (0.7-4.5); Mean Corpuscular HGB Conc 33.1 g/dL (31.8-35.4); Mean Corpuscular Hemoglobin 31.5 pg (27.0-31.2); Mean Corpuscular Volume 95.2 fl (81-99); Mean Platelet Volume 8.1 fl (7.4-10.4); Monocytes # 0.2 K/mm3 (0.1-1.0); Neutrophils # 5.5 K/mm3 (1.8-7.8); Neutrophils % 68.7 % (37.0-80.0); Platelet Count 344 K/mm3 (142-424); Red Blood Count 4.05 M/mm3 (4.20-5.40); Red Cell Distribution Width 13.2 % (11.5-17.5)
[2022-07-31 22:47] LABS: Urine Pregnancy, HCG Qual. Negative (Negative)
--- NOTE | 2022-07-31 22:50 | PC.NURSE ---
Dr. Lamb at
[2022-07-31 22:51] LABS: Magnesium 1.7 mg/dl (1.6-2.3)
[2022-07-31 22:52] LABS: Alanine Aminotransferase 17 U/L (12-78); Albumin/Globulin Ratio 1.7 (1.1-1.8); Alkaline Phosphatase 77 U/L (38-126); Anion Gap 16.6 mEq/L (5-15); Aspartate Amino Transferase 26 U/L (14-36); Bilirubin,Total 0.4 mg/dl (0.2-1.3); Blood Urea Nitrogen 15 mg/dl (7-17); Calcium 9.7 mg/dl (8.4-10.2); Carbon Dioxide 29 mmol/L (22.0-30.0); Chloride 100 mmol/L (98-107); Creatinine Clearance Estimated 85 mL/min (50-200); Estimated Glomerular Filt Rate 87 ml/min (>60); GFR (African American) 105 ML/MIN (>60); Glucose 81 mg/dl (74-100); Potassium 3.6 mmoL/L (3.5-5.1); Sodium 142 mmol/L (136-145)
[2022-07-31 22:58] LABS: C-Reactive Protein 0.3 mg/L (0-4)
--- NOTE | 2022-07-31 23:08 | HMH.EDHA ---
Discharge Plan Disposition Patient Disposition: Home, Self-Care Chief Complaint: Headache Prescriptions Prescriptions: No Action albuterol sulfate 6.7 GM HFA aerosol inhaler 2 % IH Q4HP PRN (Reason: Wheezing) 30 Days Qty: 1 0RF amoxicillin [amoxicillin] 875 mg tablet 875 mg PO Q12H Qty: 20 0RF benzonatate [benzonatate] 100 mg capsule 100 mg PO TIDP PRN (Reason: Cough) Qty: 30 0RF methylprednisolone 4 mg Tablets,Dose Pack 4 mg PO DIRECTED Qty: 21 0RF ondansetron 4 mg Tablet,Disintegrating 4 mg PO Q8H PRN (Reason: Nausea) Qty: 12 0RF Referrals Follow up/Referrals: Skye Yanez PA [Primary Care Provider] - See instructions Clinical Impressions Clinical Impression: Migraine Stand Alone Forms Stand Alone Forms: Work/School Release Instructions Patient Instructions: DI for Migraine Discharge ED Provider: Vipin Lamb Headache HPI General Chief Complaint: Headache Stated Complaint: h/a Time Seen by Provider: 07/31/22 22:40 Mode of Arrival: Ambulatory Source of Information: Patient, Parent(s) and Medical Record Limitations: No Limitations Description of Symptoms (Recalled from ER Triage Doc. by RN): pt reports that she has a migraine headach for 2 days pt it on medication. 1 every otherday unless she feels one coming on. the pt has taken her medication for 2 consecutive days but this headache is not relieved with meds. the pt states that she has pain in the base of her neck that radiates to the crown of her head then feels like electro shock waves around her skull. the pt also states she has slightly blurry vision and it feels like the room shifts. the pt stated these are all baseline with her typical migraines but today she has added severe nausea that is preventing her from eating. History of Present Illness HPI Narrative: has ongoing migraaine reece over the last 2 days despite home meds - no trauma or fever and no rash and same pattern as prev migraines MD Complaint: migraine Onset (ago): day(s) Onset description: gradual Location: diffuse Severity: similar to previous episodes Relieving factors: prescription medication Treatments prior to arrival: migraine medication Related Data Previous Rx's Medication Instructions Recorded albuterol sulfate 90 mcg/actuation 2 % inhalation Q4HP PRN Wheezing 02/11/22 aerosol inhaler 30 days #1 ea amoxicillin 875 mg tablet 875 mg PO Q12H #20 tabs 06/28/22 benzonatate 100 mg capsule 100 mg PO TIDP PRN Cough #30 caps 06/28/22 methylprednisolone 4 mg tablets in 4 mg PO DIRECTED #21 tabs 06/28/22 a dose pack ondansetron 4 mg disintegrating 4 mg PO Q8H PRN Nausea #12 tabs 06/28/22 tablet Allergies Allergy/AdvReac Type Severity Reaction Status Date / Time erythromycin base Allergy Intermediate WHIVES AND Verified 08/26/21 08:46 [From ERYTHROCIN] FEVER Sulfa (Sulfonamide Allergy Mild Verified 08/26/21 08:46 Antibiotics) [facility] History Hepatitis A Screen Attestation statement:: This patient has been screened for Hepatitis A risk factors. I have reviewed the patient's past medical history: Yes Medical History: Denies: Cancer, Diabetes Mellitus Type 1 or MRSA Laterality Cases: Bilateral: Tonsillectomy Other Surgeries: No Amputation: No Fractures: No Comment: left knee Social History Smoking Status: Former smoker Alcohol Intake: never Substance Use Type: denies use Occupational Status: other Family Hx:: Anemia, Asthma, Cancer, Coronary Artery Disease and Diabetes PFSH PFSH Medical History Anxiety Migraine Surgical History History of tonsillectomy Social History Smoking Status: Former smoker second hand exposure: No alcohol intake: never substance use type: denies use current occupational status: other Travel in the last 8 weeks: None
[2022-07-31 23:11] VITALS: BP 122/79; PULSE 105; O2SAT 100
[2022-07-31 23:14] LABS: Procalcitonin < 0.030 ng/mL (0.0-2.0)
--- NOTE | 2022-07-31 23:15 | PC.NURSE ---
pt c/o new shaking and feeling like she has had an epidural through her entire body pt states that to be like numbness in the legs and hands. the pt states that she feels like its hard to swallow, slightly slurred speech and her face is flushed she is also visibly having tremors in her hands. md notified. no new orders at this time
[2022-07-31 23:27] LABS: Erythrocyte Sedimentation Rate 15 mm/hr (0-20)
[2022-07-31 23:57] VITALS: BP 120/71; PULSE 89; RESP 16; TEMP 36.8; O2SAT 100
== END 2022-08-01 00:04 | disposition home or self-care (01) ==
PROVIDERS: Emergency Provider Emergency Medicine; PCP Physician Assistant
DX: G43.909 Migraine, unspecified, not intractable, without status migrainosus (principal); M54.2 Cervicalgia; H53.8 Other visual disturbances; R05.9 Cough, unspecified; R11.0 Nausea; F41.9 Anxiety disorder, unspecified; Z79.51 Long term (current) use of inhaled steroids; Z79.52 Long term (current) use of systemic steroids; Z79.899 Other long term (current) drug therapy; Z88.0 Allergy status to penicillin; Z88.1 Allergy status to other antibiotic agents; Z88.2 Allergy status to sulfonamides; Z88.3 Allergy status to other anti-infective agents; Z87.891 Personal history of nicotine dependence; Z82.49 Family history of ischemic heart disease and other diseases of the circulatory system; Z82.5 Family history of asthma and other chronic lower respiratory diseases; Z83.3 Family history of diabetes mellitus; Z80.9 Family history of malignant neoplasm, unspecified
CPT/HCPCS: 80053; 81025; 83735; 84145; 85025; 85651; 86140; 96360; 96374; 96375; 99284

== ENCOUNTER 2022-08-13 18:16 | Emergency (ER) | payer BC, SELFPAY ==
[2022-08-13 19:30] VITALS: BP 101/66; PULSE 70; RESP 18; TEMP 36.7; O2SAT 98; BMI 19.4
--- NOTE | 2022-08-13 19:57 | EXP.UTC ---
Discharge Plan Disposition Patient Disposition: Home, Self-Care Condition: Good Prescriptions Prescriptions: No Action Nurtec ODT 75 mg tablet,disintegrating 75 mg PO QODHS Label Comments: DISSOLVE 1 TABLET BY MOUTH EVERY OTHER DAY Referrals Follow up/Referrals: Reuben Beauchamp MD [Primary Care Provider] - See instructions Activity Restrictions/Add. Instructions Additional Instructions/Restrictions: Start Tamiflu today if you are going to take it. Discussed risk and possible benefits. Lots of rest Increase Fluids water, Gatorade, powerade, pedialyte,if /toddler/child Alternate Tylenol and / or ibuprofen as discussed for fever, aches, chills Follow up IMMEDIATELY with your family doctor for new or worsening Symptoms OR no noticeable improvement over the next 48-72 hours, 911 for difficulty or breathing You or your child area contagious until no fever, aches, chills for 24 hours with medication for symptoms Help Prevent the spread of influenza: ?Wash your hands often. Use soap and water. Wash your hands after you use the bathroom, change a child's diapers, or sneeze. Wash your hands before you prepare or eat food. Use gel hand cleanser that has 60% alcohol, when soap and water are not available. Do not touch your eyes, nose, or mouth unless you have washed your hands first. Cover your mouth when you sneeze or cough. Cough into a tissue or the bend of your arm. If you use a tissue, throw it away immediately and wash your hands. Clean shared items with a germ-killing mainspring barrel assembly cleaner. Clean table surfaces, doorknobs, and light switches. Do not share towels, silverware, and dishes with people who are sick. Wash bed sheets, towels, silverware, and dishes with soap and water. Wear a mask over your mouth and nose if you are sick. The face mask may help protect others from becoming infected with the flu. Wear the mask when in common areas of your home or if you seek care with a healthcare provider. Stay away from others if you are sick. Stay at home until 24 hours after your fever and symptoms are gone. Clinical Impressions Clinical Impression: Influenza Stand Alone Forms Stand Alone Forms: Work/School Release Instructions Patient Instructions: Influenza, DI for Influenza -- Adult Discharge ED Provider: Sonam [place]ila [facility] [place] General Stated complaint: EXPOSED TO FLU, cough, fever Mode of Arrival: Ambulatory Source of Information: Patient Limitations: No Limitations Time Seen by Provider: 08/13/22 19:57 Description of Symptoms (Recalled from Triage Doc. by RN): PATIENT C/O COUGH, CONGESTION, RUNNY NOSE, SORE THROAT, BODY ACHES, CHILLS, FATIGUE AND FEVER SINCE SUNDAY HEENT Symptoms (Recalled from RN notes): Yes Resp Symptoms (Recalled from RN notes): Yes Skin Symptoms (Recalled from RN notes): No MS Symptoms (Recalled from RN notes): No Functional Status (Recalled from RN notes): WNL History of Present Illness Provider Complaint: Patient state that her child had flu earlier in the week and she hasnt been feeling well since Sunday State that she has been having body aches, chills, nasal congestion and cough Related Data Home Medications Medication Instructions Recorded Confirmed rimegepant 75 mg disintegrating 75 mg PO QODHS MIGRAINES 08/13/22 08/13/22 tablet (Nurtec ODT) Allergies Allergy/AdvReac Type Severity Reaction Status Date / Time erythromycin base Allergy Intermediate WHIVES AND Verified 08/26/21 08:46 [From ERYTHROCIN] FEVER Sulfa (Sulfonamide Allergy Mild Verified 08/26/21 08:46 Antibiotics) Worker's Comp Is this a Worker's Comp case?: No PFSH PFS Medical History (Updated 08/13/22 @ 20:00 by Sonam Avila APRN) Anxiety History of anemia Migraine Surgical History (Reviewed 08/13/22 @ 19:47 by Iovne Benson
[2022-08-13 19:58] LABS: UTC Influenza A Antigen Positive (Negative)
[2022-08-13 19:59] LABS: UTC Influenza B Antigen Negative (Negative)
[2022-08-13 20:10] VITALS: BP 101/66; PULSE 70; RESP 18; TEMP 36.7; O2SAT 98
== END 2022-08-13 20:12 | disposition home or self-care (01) ==
PROVIDERS: Emergency Provider Nurse Practitioner; PCP Family Medicine
DX: J10.1 Influenza due to other identified influenza virus with other respiratory manifestations (principal); R50.9 Fever, unspecified; R05.9 Cough, unspecified; R53.82 Chronic fatigue, unspecified; M79.10 Myalgia, unspecified site; R09.81 Nasal congestion; G43.909 Migraine, unspecified, not intractable, without status migrainosus; J45.909 Unspecified asthma, uncomplicated; F41.9 Anxiety disorder, unspecified; Z79.1 Long term (current) use of non-steroidal anti-inflammatories (NSAID); Z79.52 Long term (current) use of systemic steroids; Z79.899 Other long term (current) drug therapy; Z88.0 Allergy status to penicillin; Z88.1 Allergy status to other antibiotic agents; Z88.2 Allergy status to sulfonamides; Z88.3 Allergy status to other anti-infective agents; Z87.891 Personal history of nicotine dependence
CPT/HCPCS: 87804; 99213; G0463

== ENCOUNTER 2022-08-21 15:21 | Emergency (ER) | payer BC, SELFPAY ==
[2022-08-21 16:40] VITALS: BP 118/72; PULSE 76; RESP 19; TEMP 36.7; O2SAT 100; BMI 18.7
[2022-08-21 16:55] LABS: UTC Strep Screen (Rapid) Negative (Negative)
--- NOTE | 2022-08-21 16:56 | EXP.UTC ---
Discharge Plan Disposition Patient Disposition: Home, Self-Care Condition: Good Prescriptions Prescriptions: New methylprednisolone [Medrol (Андрей)] 4 mg tablets,dose pack See Rx Instructions .Route .COMPLEX 6 Days Qty: 21 0RF Rx Instructions: taper pack; amoxicillin-pot clavulanate 875-125 mg Tablet 1 tab PO Q12H Qty: 20 0RF No Action Nurtec ODT 75 mg tablet,disintegrating 75 mg PO QODHS Label Comments: DISSOLVE 1 TABLET BY MOUTH EVERY OTHER DAY Referrals Follow up/Referrals: Reuben Beauchamp MD [Primary Care Provider] - See instructions Activity Restrictions/Add. Instructions Additional Instructions/Restrictions: *Monitor Temp, Over the counter Motrin or Tylenol as directed/as needed Tylenol every 4 hours and Motrin every 6 hours (as long as your family doctor has told you that you can take it) for fever or pain. and straight to ER if unable to lower temp less than 101.0 after medication given *Warm salt water gargles may help to soothe the throat *Throat Lozenges? *Warm fluids like tea with honey may help to soothe the throat? *Sleep elevated *Humidifier/Vaporizer Your throat swab was sent for culture. Those results are typically sent to your primary care. Be sure to follow up in 2-3 days with your family doctor/primary care physician if no improvement so they can review those result and treat if necessary. If you don?t have a primary care doctor, I recommend you get one but in the mean time, you will have to return to a walk in clinic Follow up IMMEDIATELY for new or worsening symptoms or no Noticeable improvement over the next 48-72 hours. 911 for difficulty breathing or swallowing Clinical Impressions Clinical Impression: Sinusitis, Bronchitis Instructions Patient Instructions: DI for Sinusitis, Sinusitis, Acute Bronchitis Discharge ED Provider: Sonam Avila [facility] HPI General Stated complaint: cough, congestion, soa Mode of Arrival: Ambulatory Source of Information: Patient Limitations: No Limitations Time Seen by Provider: 08/21/22 16:56 Description of Symptoms (Recalled from Triage Doc. by RN): PATIENT C/O COUGH, CONGESTION, JAW PAIN AND SINUS PRESSURE X 2 DAYS HEENT Symptoms (Recalled from RN notes): Yes Resp Symptoms (Recalled from RN notes): Yes Skin Symptoms (Recalled from RN notes): No MS Symptoms (Recalled from RN notes): No Functional Status (Recalled from RN notes): WNL History of Present Illness Provider Complaint: Patient states that she has been having cough, sinus pain and pressure and even her teeth hurt States that she is having drainage in the back of her throat and at times she will cough up some thick mucous States that she had the flu a couple weeks ago and worried it has turned into something else Related Data Home Medications Medication Instructions Recorded Confirmed rimegepant 75 mg disintegrating 75 mg PO QODHS MIGRAINES 08/13/22 08/13/22 tablet (Nurtec ODT) Previous Rx's Medication Instructions Recorded amoxicillin 875 mg-potassium 1 tab PO Q12H #20 tabs 08/21/22 clavulanate 125 mg tablet methylprednisolone 4 mg tablets in See Rx Instructions .Route 08/21/22 a dose pack (Medrol (Андрей)) .COMPLEX 6 days #21 tabs Allergies Allergy/AdvReac Type Severity Reaction Status Date / Time erythromycin base Allergy Intermediate WHIVES AND Verified 08/26/21 08:46 [From ERYTHROCIN] FEVER Sulfa (Sulfonamide Allergy Mild Verified 08/26/21 08:46 Antibiotics) Worker's Comp Is this a Worker's Comp case?: No [facility] Disclaimer: The information contained in this section may have been updated after the patient was seen, as this information can be updated by other users. Medical History (Updated 08/21/22 @ 17:00 by Sonam Avila APRN) Anxiety History of anemia Migraine Surgical History History of tonsillectomy Social History (Updated
[2022-08-21 17:01] VITALS: BP 118/72; PULSE 76; RESP 19; TEMP 36.7; O2SAT 100
== END 2022-08-21 17:09 | disposition home or self-care (01) ==
PROVIDERS: Emergency Provider Nurse Practitioner; PCP Family Medicine
DX: J40 Bronchitis, not specified as acute or chronic (principal); J32.9 Chronic sinusitis, unspecified
CPT/HCPCS: 87880; 99212; G0463

== ENCOUNTER 2022-09-04 15:20 | Emergency (ER) | payer BC, MEDICAID, SELFPAY ==
[2022-09-04 16:45] VITALS: BP 126/85; PULSE 109; RESP 19; TEMP 36.7; O2SAT 98
--- NOTE | 2022-09-04 16:58 | EXP.UTC ---
Discharge Plan Disposition Patient Disposition: Home, Self-Care Condition: Good Prescriptions Prescriptions: New cefdinir 300 mg capsule 300 mg PO BID Qty: 20 0RF No Action Nurtec ODT 75 mg tablet,disintegrating 75 mg PO QODHS Label Comments: DISSOLVE 1 TABLET BY MOUTH EVERY OTHER DAY methylprednisolone [Medrol (Андрей)] 4 mg tablets,dose pack See Rx Instructions .Route .COMPLEX 6 Days Qty: 21 0RF Rx Instructions: taper pack; amoxicillin-pot clavulanate 875-125 mg Tablet 1 tab PO Q12H Qty: 20 0RF Referrals Follow up/Referrals: Reuben Beauchamp MD [Primary Care Provider] - See instructions Activity Restrictions/Add. Instructions Additional Instructions/Restrictions: *Monitor Temp, Over the counter Motrin or Tylenol as directed/as needed Tylenol every 4 hours and Motrin every 6 hours (as long as your family doctor has told you that you can take it) for fever or pain. and straight to ER if unable to lower temp less than 101.0 after medication given *Warm salt water gargles may help to soothe the throat *Throat Lozenges? *Warm fluids like tea with honey may help to soothe the throat? *Sleep elevated *Humidifier/Vaporizer Your throat swab was sent for culture. Those results are typically sent to your primary care. Be sure to follow up in 2-3 days with your family doctor/primary care physician if no improvement so they can review those result and treat if necessary. If you don?t have a primary care doctor, I recommend you get one but in the mean time, you will have to return to a walk in clinic Follow up IMMEDIATELY for new or worsening symptoms or no Noticeable improvement over the next 48-72 hours. 911 for difficulty breathing or swallowing You were tested for today for Upper Respiratory Panel with COVID19 your test result should be back in the next 24-48 hours, you may check your Results on the [facility] [employer] [facility] Portal Clinical Impressions Clinical Impression: Pharyngitis Qualifiers: Pharyngitis/tonsillitis etiology: unspecified etiology Qualified Code(s): J02.9 - Acute pharyngitis, unspecified Instructions Patient Instructions: Sore Throat, DI for Strep Throat Discharge ED Provider: Sonam Avila [facility] [place] Stated complaint: CONGESTION AND SORE THROAT Time Seen by Provider: 09/04/22 16:58 History of Present Illness Provider Complaint: Patient states that she has been having sore throat, nasal congestion, and blisters in her throat States that today her throat was hurting so she came in to get it checked Related Data Home Medications Medication Instructions Recorded Confirmed rimegepant 75 mg disintegrating 75 mg PO QODHS MIGRAINES 08/13/22 08/13/22 tablet (Nurtec ODT) Previous Rx's Medication Instructions Recorded amoxicillin 875 mg-potassium 1 tab PO Q12H #20 tabs 08/21/22 clavulanate 125 mg tablet methylprednisolone 4 mg tablets in See Rx Instructions .Route 08/21/22 a dose pack (Medrol (Андрей)) .COMPLEX 6 days #21 tabs cefdinir 300 mg capsule 300 mg PO BID #20 caps 09/04/22 Allergies Allergy/AdvReac Type Severity Reaction Status Date / Time erythromycin base Allergy Intermediate WHIVES AND Verified 08/26/21 08:46 [From ERYTHROCIN] FEVER Sulfa (Sulfonamide Allergy Mild Verified 08/26/21 08:46 Antibiotics) [facility] Disclaimer: The information contained in this section may have been updated after the patient was seen, as this information can be updated by other users. Medical History (Updated 09/04/22 @ 17:11 by Sonam Avila APRN) Anxiety History of anemia Migraine Surgical History History of tonsillectomy Social History (Updated 09/04/22 @ 17:06 by Ivone Pelaez RN) Smoking Status: Former smoker second hand exposure: No alcohol intake: never substance use type: denies use current occupational status: other Travel in the [place]
--- NOTE | 2022-09-04 17:21 | EXP.UTC ---
Discharge Plan Disposition Patient Disposition: Home, Self-Care Condition: Good Prescriptions Prescriptions: New cefdinir 300 mg capsule 300 mg PO BID Qty: 20 0RF No Action Nurtec ODT 75 mg tablet,disintegrating 75 mg PO QODHS Label Comments: DISSOLVE 1 TABLET BY MOUTH EVERY OTHER DAY methylprednisolone [Medrol (Андрей)] 4 mg tablets,dose pack See Rx Instructions .Route .COMPLEX 6 Days Qty: 21 0RF Rx Instructions: taper pack; amoxicillin-pot clavulanate 875-125 mg Tablet 1 tab PO Q12H Qty: 20 0RF Referrals Follow up/Referrals: Reuben Beauchamp MD [Primary Care Provider] - See instructions Activity Restrictions/Add. Instructions Additional Instructions/Restrictions: *Monitor Temp, Over the counter Motrin or Tylenol as directed/as needed Tylenol every 4 hours and Motrin every 6 hours (as long as your family doctor has told you that you can take it) for fever or pain. and straight to ER if unable to lower temp less than 101.0 after medication given *Warm salt water gargles may help to soothe the throat *Throat Lozenges? *Warm fluids like tea with honey may help to soothe the throat? *Sleep elevated *Humidifier/Vaporizer Your throat swab was sent for culture. Those results are typically sent to your primary care. Be sure to follow up in 2-3 days with your family doctor/primary care physician if no improvement so they can review those result and treat if necessary. If you don?t have a primary care doctor, I recommend you get one but in the mean time, you will have to return to a walk in clinic Follow up IMMEDIATELY for new or worsening symptoms or no Noticeable improvement over the next 48-72 hours. 911 for difficulty breathing or swallowing You were tested for today for Upper Respiratory Panel with COVID19 your test result should be back in the next 24-48 hours, you may check your Results on the [facility] [employer] [facility] Portal Clinical Impressions Clinical Impression: Pharyngitis Qualifiers: Pharyngitis/tonsillitis etiology: unspecified etiology Qualified Code(s): J02.9 - Acute pharyngitis, unspecified Instructions Patient Instructions: Sore Throat, DI for Strep Throat Discharge ED Provider: Sonam Avila [facility] [place] General Stated complaint: CONGESTION AND SORE THROAT Mode of Arrival: Ambulatory Source of Information: Patient Limitations: No Limitations Time Seen by Provider: 09/04/22 16:58 Description of Symptoms (Recalled from Triage Doc. by RN): PATIENT C/O RUNNY NOSE, SORE THROAT, AND DRY COUGH SINCE SUNDAY HEENT Symptoms (Recalled from RN notes): Yes Resp Symptoms (Recalled from RN notes): Yes Skin Symptoms (Recalled from RN notes): No MS Symptoms (Recalled from RN notes): No Functional Status (Recalled from RN notes): WNL History of Present Illness Provider Complaint: Patient states that she hasnt been feeling well for several days States that her throat hurts and has continued to get worse and noticed blisters on the back of her throat States that today she was feeling worse so she came in Related Data Home Medications Medication Instructions Recorded Confirmed rimegepant 75 mg disintegrating 75 mg PO QODHS MIGRAINES 08/13/22 08/13/22 tablet (Nurtec ODT) Previous Rx's Medication Instructions Recorded amoxicillin 875 mg-potassium 1 tab PO Q12H #20 tabs 08/21/22 clavulanate 125 mg tablet methylprednisolone 4 mg tablets in See Rx Instructions .Route 08/21/22 a dose pack (Medrol (Андрей)) .COMPLEX 6 days #21 tabs cefdinir 300 mg capsule 300 mg PO BID #20 caps 09/04/22 Allergies Allergy/AdvReac Type Severity Reaction Status Date / Time erythromycin base Allergy Intermediate WHIVES AND Verified 08/26/21 08:46 [From ERYTHROCIN] FEVER Sulfa (Sulfonamide Allergy Mild Verified 08/26/21 08:46 Antibiotics) Worker's Comp Is this a Worker's Comp case?: No [facility] Disclaimer: The information contained in this section may have been
[2022-09-04 17:26] LABS: UTC Strep Screen (Rapid) Negative (Negative)
[2022-09-04 17:32] VITALS: BP 126/85; PULSE 109; RESP 19; TEMP 36.7; O2SAT 98
[2022-09-04 18:09] LABS: Adenovirus,PCR Not Detected (NotDetected); Bordetella Pertussis Not Detected (NotDetected); Chlamydophila Pneumoniae, PCR Not Detected (NotDetected); Coronavirus 19, PCR Not Detected (NotDetected); Coronavirus 229E Not Detected (NotDetected); Coronavirus NL63 Not Detected (NotDetected); Coronavirus OC43 Not Detected (NotDetected); Human Metapneumovirus Not Detected (NotDetected); Influenza A, PCR Not Detected (NotDetected); Influenza AH1, 2009 Not Detected (NotDetected); Influenza AH1, PCR Not Detected (NotDetected); Influenza AH3,PCR Not Detected (NotDetected); Influenza B, PCR Not Detected (NotDetected); Mycoplasma Pneumoniae, PCR Not Detected (NotDetected); Parainfluenza 1, PCR Not Detected (NotDetected); Parainfluenza 2, PCR Not Detected (NotDetected); Parainfluenza 3, PCR Not Detected (NotDetected); Parainfluenza 4, PCR Not Detected (NotDetected); Respiratory Syncytial Virus Not Detected (NotDetected); Rhinovirus/Enterovirus Not Detected (NotDetected)
[2022-09-04 22:29] LABS: Coronovirus HKU1,PCR Detected (NotDetected)
== END 2022-09-04 17:38 | disposition home or self-care (01) ==
PROVIDERS: Emergency Provider Nurse Practitioner; PCP Family Medicine
DX: J02.9 Acute pharyngitis, unspecified (principal); R09.89 Other specified symptoms and signs involving the circulatory and respiratory systems
CPT/HCPCS: 87581; 87632; 87798; 87880; 99212; C9803; G0463; U0003; U0005

== ENCOUNTER → 2022-12-01 11:32 | Outpatient (CLI) | payer BC, MEDICAID, SELFPAY ==
[2022-12-01 13:09] LABS: HCG,Quantitative < 2 mIU/ml (0-5.42)
== END ==
PROVIDERS: Visit Provider Obstetrics & Gynecology
DX: Z78.9 Other specified health status (principal); Z32.00 Encounter for pregnancy test, result unknown
CPT/HCPCS: 36415; 84702

== ENCOUNTER → 2022-12-05 12:32 | Outpatient (CLI) | payer BC, MEDICAID, SELFPAY ==
[2022-12-05 14:14] LABS: HCG,Quantitative 37 mIU/ml (0-5.42)
[2022-12-06 12:06] LABS: Progesterone 19.1 ng/mL (.)
== END ==
PROVIDERS: Visit Provider Obstetrics & Gynecology
DX: Z32.01 Encounter for pregnancy test, result positive (principal)
CPT/HCPCS: 36415; 84144; 84702

== ENCOUNTER → 2022-12-07 08:25 | Outpatient (CLI) | payer BC, MEDICAID, SELFPAY ==
[2022-12-07 10:40] LABS: HCG,Quantitative 81 mIU/ml (0-5.42)
== END ==
PROVIDERS: Visit Provider Obstetrics & Gynecology
DX: Z34.90 Encounter for supervision of normal pregnancy, unspecified, unspecified trimester (principal)
CPT/HCPCS: 36415; 84702

== ENCOUNTER 2023-01-02 15:13 | Emergency (ER) | payer BC, MEDICAID, SELFPAY ==
[2023-01-02 15:17] VITALS: BP 110/63; PULSE 86; RESP 17; TEMP 36.8; O2SAT 100; BMI 22.6
--- NOTE | 2023-01-02 16:00 | US_ITS ---
PROCEDURE INFORMATION: Exam: US , Transvaginal Exam date and time: 01/02/2023 4:20 PM Age: 27 years old Clinical indication: complicated by abdominal or pelvic pain; Right lower quadrant; First trimester (<14 weeks 0 days); Gestational age or lmp: 7w2d; ; Additional info: Rlq pain TECHNIQUE: Imaging protocol: Real-time transvaginal obstetrical ultrasound of the maternal pelvis with image documentation. Transvaginal imaging was used for better evaluation of the fetus, adnexa, and/or cervix. COMPARISON: US TRANSVAGINAL 08/05/2020 3:21 PM FINDINGS: Gestation: Intrauterine gestation is present. heart rate: heart rate measures 165 bpm Placenta: There is a small subchorionic/implantation bleed measuring 2.9 x 1 x 0.9 cm. BIOMETRY: Gestational age (AUA): Single live intrauterine gestation with a gestational age of 7 weeks 4 days based on a crown-rump length of 1.2 cm and an estimated due date of 08/17/2023. MATERNAL: Right ovary/adnexa: The right ovary measures 1.6 x 2.3 x 1.7 cm. Normal flow demonstrated. Left ovary/adnexa: The left ovary measures 3.5 x 3.7 x 2.5 cm. Normal flow demonstrated. Intraperitoneal space: There is a small amount of free fluid present in the pelvis, nonspecific. There is a small amount of free fluid present in the pelvis, nonspecific. IMPRESSION: 1. Single live intrauterine gestation with a gestational age of 7 weeks 4 days based on a crown-rump length of 1.2 cm and an estimated due date of 08/17/2023. 2. There is a small subchorionic/implantation bleed measuring 2.9 x 1 x 0.9 cm.
[2023-01-02 16:09] VITALS: BP 112/62; PULSE 85; O2SAT 100
[2023-01-02 16:23] LABS: Basophils % 0.2 % (0.1-2.0); Eosinophils # 0.1 K/mm3 (0.0-0.4); Eosinophils % 0.9 % (0.1-12.0); Hematocrit 38.2 % (37.0-47.0); Hemoglobin 12.5 g/dL (12.2-16.2); Lymphocytes # 2.2 K/mm3 (0.7-4.5); Lymphocytes % 21.7 % (10-50); Mean Corpuscular HGB Conc 32.7 g/dL (31.8-35.4); Mean Corpuscular Hemoglobin 30.5 pg (27.0-31.2); Mean Corpuscular Volume 93.5 fl (81-99); Mean Platelet Volume 7.9 fl (7.4-10.4); Monocytes # 0.4 K/mm3 (0.1-1.0); Monocytes % 3.8 % (1.7-9.3); Neutrophils # 7.3 K/mm3 (1.8-7.8); Neutrophils % 73.3 % (37.0-80.0); Platelet Count 317 K/mm3 (142-424); Red Blood Count 4.08 M/mm3 (4.20-5.40); Red Cell Distribution Width 13.3 % (11.5-17.5); White Blood Count 9.9 K/mm3 (4.8-10.8)
[2023-01-02 16:37] LABS: Alanine Aminotransferase 14 U/L (12-78); Albumin Level 4.5 g/dl (3.5-5.0); Albumin/Globulin Ratio 1.7 (1.1-1.8); Alkaline Phosphatase 42 U/L (38-126); Anion Gap 10.6 mEq/L (5-15); Aspartate Amino Transferase 22 U/L (14-36); Bilirubin,Total 0.3 mg/dl (0.2-1.3); Blood Urea Nitrogen 10 mg/dl (7-17); Calcium 8.7 mg/dl (8.4-10.2); Carbon Dioxide 25 mmol/L (22.0-30.0); Chloride 104 mmol/L (98-107); Creatinine Clearance Estimated 183 mL/min (50-200); Estimated Glomerular Filt Rate 193 ml/min (>60); GFR (African American) 233 ML/MIN (>60); Globulin 2.7 g/dL (1.3-3.2); Glucose 82 mg/dl (74-100); Potassium 3.6 mmoL/L (3.5-5.1); Sodium 136 mmol/L (136-145); Total Protein,Serum 7.2 g/dl (6.3-8.2)
[2023-01-02 16:59] VITALS: BP 111/69; PULSE 85; O2SAT 99
[2023-01-02 17:00] VITALS: BP 104/66; PULSE 93; O2SAT 100
--- NOTE | 2023-01-02 17:07 | PC.NURSE ---
UA sent to lab; pt has no other needs at this time
[2023-01-02 17:09] LABS: Microscopic, Urine URINE MICROSCOPIC (MICROSCOPIC)
[2023-01-02 17:24] LABS: HCG,Quantitative 181650 mIU/ml (0-5.42)
[2023-01-02 17:32] LABS: Appearance,Urine CLEAR (Clear); Bilirubin,Urine Negative (Negative); Blood, Urine TRACE-I (Negative); Color,Urine YELLOW (Yellow); Glucose,Urine (UA) Negative (Negative); Ketones,Urine TRACE (Negative); Leukocyte Esterase,Urine 1+ (Negative); Nitrate,Urine Negative (Negative); Protein,Urine Negative (Negative); Specific Gravity, Urine 1.015 (1.005-1.030); Urobilinogen,Urine 0.2 EU/dl (0.2)
--- NOTE | 2023-01-02 17:37 | PC.NURSE ---
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
--- NOTE | 2023-01-02 17:39 | PC.NURSE ---
EMILY DAMON speaking with Dr. Dewitt
--- NOTE | 2023-01-02 17:42 | HMH.EDPREG ---
Discharge Plan Disposition Patient Disposition: Home, Self-Care Condition: Good Prescriptions Prescriptions: No Action promethazine 12.5 mg tablet 12.5 mg PO Q6H PRN (Reason: nausea and vomiting) Qty: 20 0RF Referrals Follow up/Referrals: Provider,Referral, MD [Primary Care Provider] - See instructions Clinical Impressions Clinical Impression: Pelvic pain during , Subchorionic hemorrhage Instructions Patient Instructions: DI for Acute Abdominal Pain Discharge ED Provider: Clara Ortiz HPI General Chief complaint: Abdominal Pain Stated complaint: 7wks preg, Nausa,Abd Pain,feels like passing out Time Seen by Provider: 01/02/23 15:54 Mode of Arrival: Ambulatory Source of Information: Patient Limitations: No Limitations Description of Symptoms (Recalled from ER Triage Doc. by RN): pt to ED with nausea and vomiting x 4 weeks plus RLQ pain since yesterday. pt is believed to be about 7 weeks . she stated she called her OB Dr. Lee today with her concerns and she was told she needed to go to the ER to rule out an ectopic . History of Present Illness HPI Narrative: Patient is a 27-year-old female who is here secondary to right lower quadrant pain. Patient is complaining right lower quadrant pain since yesterday. Patient had nausea vomiting since first trimester . After she vomits she can eat some and drink keep things down. Patient has no urgency frequency or burning urination. Patient stated that she went to Dr. Giron's office who sent her here for rule out ectopic. She is 5 para 2 2 miscarriages to live source at home. Complaint: abdominal pain Onset (ago): day(s) Consistency: constant Location: pelvis Severity: mild Severity scale (1-10): 4 Quality: aching and dull Radiation: pelvis Relieving factors: none Exacerbating factors: none Associated symptoms: vomiting and abdominal pain Vaginal discharge: none Vaginal bleeding: none : Yes Date of Last Menstrual Period: 11/12 OB History - Current : no complications OB History - Previous Pregnancies: no complications care: followed by OB Related Data : 5 Para: 2 Ab: 2 Previous Rx's Medication Instructions Recorded promethazine 12.5 mg tablet 12.5 mg PO Q6H PRN nausea and 12/20/22 vomiting #20 tabs Allergies Allergy/AdvReac Type Severity Reaction Status Date / Time erythromycin base Allergy Intermediate WHIVES AND Verified 12/01/22 10:40 [From ERYTHROCIN] FEVER Sulfa (Sulfonamide Allergy Mild Verified 12/01/22 10:40 Antibiotics) [facility] Disclaimer: The information contained in this section may have been updated after the patient was seen, as this information can be updated by other users. Medical History Anxiety History of anemia Migraine Patient desires Surgical History History of left knee surgery History of tonsillectomy S/P wisdom tooth extraction Social History Smoking Status: Never smoker second hand exposure: No alcohol intake: never substance use type: denies use current occupational status: other Travel in the last 8 weeks: None ROS Obtained: Yes All systems reviewed & no additional complaints except as documented Gastrointestinal Gastrointestingal: Reports abdominal pain, nausea and vomiting Physical Exam General General appearance: alert and in distress Head Head exam: atraumatic, normocephalic and normal inspection Eye Eye exam: Present normal appearance, PERRL and EOMI; Absent scleral icterus or conjunctival redness ENT ENT exam: Present normal exam, normal oropharynx and mucous membranes dry; Absent mucous membranes moist Neck Neck exam: Present normal inspection, full ROM and trachea midline Chest Chest inspection: Pre
[2023-01-02 17:46] VITALS: BP 117/83; PULSE 67; RESP 17; TEMP 36.8; O2SAT 98
[2023-01-02 17:54] LABS: RBC,Urine Occasional #/hpf (0-3); WBC,Urine Occasional #/hpf (0-3)
[2023-01-02 17:55] LABS: Bacteria,Urine Trace /lpf
== END 2023-01-02 17:49 | disposition home or self-care (01) ==
PROVIDERS: Emergency Provider Emergency Medicine
DX: O41.8X10 Other specified disorders of amniotic fluid and membranes, first trimester, not applicable or unspecified (principal); Z3A.01 Less than 8 weeks gestation of pregnancy
CPT/HCPCS: 76817; 80053; 81001; 84702; 85025; 86900; 86901; 87086; 99284; 99285

== ENCOUNTER → 2023-01-22 12:06 | Outpatient (CLI) | payer BC, MEDICAID, SELFPAY ==
[2023-01-22 18:16] LABS: Adenovirus,PCR Not Detected (NotDetected); Bordetella Pertussis Not Detected (NotDetected); Chlamydophila Pneumoniae, PCR Not Detected (NotDetected); Coronavirus 19, PCR Not Detected (NotDetected); Coronavirus 229E Not Detected (NotDetected); Coronavirus NL63 Not Detected (NotDetected); Coronavirus OC43 Not Detected (NotDetected); Coronovirus HKU1,PCR Not Detected (NotDetected); Human Metapneumovirus Not Detected (NotDetected); Influenza A, PCR Not Detected (NotDetected); Influenza AH1, 2009 Not Detected (NotDetected); Influenza AH1, PCR Not Detected (NotDetected); Influenza AH3,PCR Not Detected (NotDetected); Influenza B, PCR Not Detected (NotDetected); Mycoplasma Pneumoniae, PCR Not Detected (NotDetected); Parainfluenza 1, PCR Not Detected (NotDetected); Parainfluenza 2, PCR Not Detected (NotDetected); Parainfluenza 3, PCR Not Detected (NotDetected); Parainfluenza 4, PCR Not Detected (NotDetected); Respiratory Syncytial Virus Not Detected (NotDetected); Rhinovirus/Enterovirus Not Detected (NotDetected)
== END ==
PROVIDERS: PCP Student in an Organized Health Care Education/Training Program; Visit Provider Student in an Organized Health Care Education/Training Program
DX: R05.9 Cough, unspecified (principal); R09.81 Nasal congestion; R09.82 Postnasal drip; J02.9 Acute pharyngitis, unspecified; R69 Illness, unspecified
CPT/HCPCS: 87070; 87581; 87632; 87798; C9803; U0003; U0005

== ENCOUNTER → 2023-02-05 15:56 | Outpatient (CLI) | payer BC, MEDICAID, SELFPAY ==
[2023-02-05 16:50] LABS: Basophils % 0.2 % (0.1-2.0); Eosinophils # 0.1 K/mm3 (0.0-0.4); Eosinophils % 0.7 % (0.1-12.0); Hematocrit 35.3 % (37.0-47.0); Hemoglobin 12.1 g/dL (12.2-16.2); Lymphocytes # 2.1 K/mm3 (0.7-4.5); Lymphocytes % 17.6 % (10-50); Mean Corpuscular HGB Conc 34.3 g/dL (31.8-35.4); Mean Corpuscular Hemoglobin 31.8 pg (27.0-31.2); Mean Corpuscular Volume 92.6 fl (81-99); Monocytes # 0.3 K/mm3 (0.1-1.0); Monocytes % 2.7 % (1.7-9.3); Neutrophils # 9.6 K/mm3 (1.8-7.8); Neutrophils % 78.9 % (37.0-80.0); Platelet Count 347 K/mm3 (142-424); Red Blood Count 3.82 M/mm3 (4.20-5.40); Red Cell Distribution Width 13.5 % (11.5-17.5); White Blood Count 12.2 K/mm3 (4.8-10.8)
[2023-02-07 08:23] LABS: Rubella Antibodies, IgG 1.49 index (Immune >0.99)
[2023-02-07 09:47] LABS: Hepatitis C Antibody NON REACTIVE
[2023-02-07 09:48] LABS: HIV Screen 4th Generation wRfx NON REACTIVE; Hepatitis B Surface Antigen NEGATIVE
[2023-02-07 09:49] LABS: HIV 1 Ab NEGATIVE; HIV-1 Ab CHG YES
[2023-02-07 12:19] LABS: Rapid Plasma Reagin Ab Titer Non Reactive (NonRea<1:1)
== END ==
PROVIDERS: Visit Provider Obstetrics & Gynecology
DX: Z34.90 Encounter for supervision of normal pregnancy, unspecified, unspecified trimester (principal)
CPT/HCPCS: 36415; 85025; 86593; 86701; 86703; 86762; 86850; 87340; 87380; G0432

== ENCOUNTER 2023-02-26 15:32 | Emergency (ER) | payer BC, MEDICAID, SELFPAY ==
[2023-02-26 15:33] VITALS: BP 93/59; PULSE 96; RESP 18; TEMP 36.9; O2SAT 98; BMI 22.6
--- NOTE | 2023-02-26 15:49 | EXP.UTC ---
Discharge Plan Disposition Patient Disposition: Home, Self-Care Condition: Good Prescriptions Prescriptions: No Action promethazine 12.5 mg tablet 12.5 mg PO Q6H PRN (Reason: nausea and vomiting) Qty: 20 0RF Referrals Follow up/Referrals: Provider,Referral, MD [Primary Care Provider] - See instructions Activity Restrictions/Add. Instructions Additional Instructions/Restrictions: *Monitor Temp, Over the counter Motrin or Tylenol as directed/as needed Tylenol every 4 hours and Motrin every 6 hours (as long as your family doctor has told you that you can take it) for fever or pain. and straight to ER if unable to lower temp less than 101.0 after medication given *Warm salt water gargles may help to soothe the throat *Throat Lozenges? *Warm fluids like tea with honey may help to soothe the throat? *Sleep elevated *Humidifier/Vaporizer Your throat swab was sent for culture. Those results are typically sent to your primary care. Be sure to follow up in 2-3 days with your family doctor/primary care physician if no improvement so they can review those result and treat if necessary. If you don?t have a primary care doctor, I recommend you get one but in the mean time, you will have to return to a walk in clinic Follow up IMMEDIATELY for new or worsening symptoms or no Noticeable improvement over the next 48-72 hours. 911 for difficulty breathing or swallowing Clinical Impressions Clinical Impression: Viral upper respiratory infection Instructions Patient Instructions: Sore Throat, DI for Nasal Congestion Discharge ED Provider: Sonam Avila [facility] – [place], [place] HPI General Stated complaint: sore throat, cough, runny nose,fever, congestion Mode of Arrival: Ambulatory Source of Information: Patient Limitations: No Limitations Time Seen by Provider: 02/26/23 15:49 Description of Symptoms (Recalled from Triage Doc. by RN): Patient reports sore throat, on and off fever, cough, congestion and shortness of breath for 4 days. HEENT Symptoms (Recalled from RN notes): Yes Resp Symptoms (Recalled from RN notes): No Skin Symptoms (Recalled from RN notes): No MS Symptoms (Recalled from RN notes): No Functional Status (Recalled from RN notes): wnl History of Present Illness Provider Complaint: Patient states that she has been having sore throat, feeling a little SOA at times, sinus congestion and drainage, low grade fever and feeling achy for the last 4-5 days Statse that she is 15wks OB State that today she was still not feeling well so she came in Related Data Previous Rx's Medication Instructions Recorded promethazine 12.5 mg tablet 12.5 mg PO Q6H PRN nausea and 12/20/22 vomiting #20 tabs Allergies Allergy/AdvReac Type Severity Reaction Status Date / Time erythromycin base Allergy Intermediate WHIVES AND Verified 02/07/23 09:22 [From ERYTHROCIN] FEVER Sulfa (Sulfonamide Allergy Mild Verified 02/07/23 09:22 Antibiotics) Worker's Comp Is this a Worker's Comp case?: No [facility] Disclaimer: The information contained in this section may have been updated after the patient was seen, as this information can be updated by other users. Medical History Anxiety History of anemia Migraine Nausea and vomiting during Patient desires Same sex marriage Surgical History History of left knee surgery History of tonsillectomy S/P wisdom tooth extraction Family History Other Diabetes Social History Smoking Status: Never smoker second hand exposure: No alcohol intake: never substance use type: denies use current occupational status: other Travel in the last 8 weeks: None ROS Obtained: Yes All systems reviewed & no additional complaints except as documented and Yes Systems reviewed as appropriate & n
[2023-02-26 15:54] LABS: UTC Strep Screen (Rapid) Negative (Negative)
[2023-02-26 16:15] LABS: Adenovirus,PCR Not Detected (NotDetected); Bordetella Pertussis Not Detected (NotDetected); Chlamydophila Pneumoniae, PCR Not Detected (NotDetected); Coronavirus 19, PCR Not Detected (NotDetected); Coronavirus 229E Not Detected (NotDetected); Coronavirus NL63 Not Detected (NotDetected); Coronavirus OC43 Not Detected (NotDetected); Coronovirus HKU1,PCR Not Detected (NotDetected); Human Metapneumovirus Not Detected (NotDetected); Influenza A, PCR Not Detected (NotDetected); Influenza AH1, 2009 Not Detected (NotDetected); Influenza AH1, PCR Not Detected (NotDetected); Influenza AH3,PCR Not Detected (NotDetected); Influenza B, PCR Not Detected (NotDetected); Mycoplasma Pneumoniae, PCR Not Detected (NotDetected); Parainfluenza 1, PCR Not Detected (NotDetected); Parainfluenza 2, PCR Not Detected (NotDetected); Parainfluenza 3, PCR Not Detected (NotDetected); Parainfluenza 4, PCR Not Detected (NotDetected); Respiratory Syncytial Virus Not Detected (NotDetected); Rhinovirus/Enterovirus Not Detected (NotDetected)
[2023-02-26 16:16] VITALS: BP 110/59; PULSE 96; RESP 18; TEMP 36.9; O2SAT 98
== END 2023-02-26 16:18 | disposition home or self-care (01) ==
PROVIDERS: Emergency Provider Nurse Practitioner
DX: O98.512 Other viral diseases complicating pregnancy, second trimester (principal); O99.342 Other mental disorders complicating pregnancy, second trimester; J06.9 Acute upper respiratory infection, unspecified; O99.352 Diseases of the nervous system complicating pregnancy, second trimester; R06.02 Shortness of breath; R50.9 Fever, unspecified; F41.9 Anxiety disorder, unspecified; G43.909 Migraine, unspecified, not intractable, without status migrainosus; Z3A.15 15 weeks gestation of pregnancy
CPT/HCPCS: 87581; 87632; 87798; 87880; 99212; 99213; C9803; G0463; U0003; U0005

== ENCOUNTER → 2023-04-04 12:44 | Outpatient (CLI) | payer BC, MEDICAID, SELFPAY ==
--- NOTE | 2023-04-04 12:44 | US_ITS ---
PROCEDURE: US OB /MATERNAL DETAIL CLINICAL INDICATION: 20 week anatomy scan COMPARISON: US OB TRANSVAGINAL from 01/02/2023 FINDINGS: Transabdominal sonographic images of the uterus were obtained. From her established due date she is 20 weeks 5 days. Single viable intrauterine gestation. Vertex position. Placenta: Anteriorplacenta grade 1. There is average amount fluid. The cervix appears satisfactory. Closed and measuring 3.1 cm in length. Complete survey performed and was unremarkable on the submitted images as in PACS. No discrete anomalies identified on survey imaging by technologist. Active fetus. Three-vessel cord with satisfactory umbilical cord insertion. 4- chamber heart noted. Situs. Aortic arch, RVOT, LVOT appear normal. Survey of brain & ventricles Unremarkable. Choroid plexus, thalamus, cerebellum, cisterna magna appear normal. Face and neck survey unremarkable. Profile, lips and nose are visualized. Nasion is seen. Diaphragm and chest views unremarkable. Abdomen: Both kidneys noted and unremarkable. Stomach and bladder appear normal. Spine: Survey of the spine satisfactory with no anomalies identified nor imaged. Upper, thoracic and lower spine were seen and appear normal. Both arms and legs noted. Amniotic Fluid: Adequate. Measurements: Average ultrasound age 21weeks 1day. Estimated due date by ultrasound age 1108/14/2023. Estimated weight 394g BPD = 21weeks 1day OFD = 20weeks 2days HC = 20weeks 6days AC = 21weeks 1day FL = 21weeks 1day Growth Percentile= 63 Heart Rate = 147bpm. There was an irregular heartbeat noted. Cerebellum = 20weeks 3days Humerus = 21weeks HC/AC is 1.16 CI is 0.84 FL/BPD is 0.7 FL/AC is 0.22 IMPRESSION: 1. Viable fetus in the vertex position with an anterior placenta grade 1. The fluid is normal. 2. Anatomical scan appears normal. 3. There was an arrhythmia noted with the heart rate during the scan. Suggest follow-up. Dictated by: Ajay Woodson MD 04/05/2023 07:45 Ajay Woodson MD in OV 04/05/2023 07:45
== END ==
LOC: RAD 12:44
PROVIDERS: PCP Obstetrics & Gynecology; Visit Provider Obstetrics & Gynecology
DX: Z34.92 Encounter for supervision of normal pregnancy, unspecified, second trimester (principal); Z3A.20 20 weeks gestation of pregnancy
CPT/HCPCS: 76811

== ENCOUNTER → 2023-04-19 11:46 | Outpatient (CLI) | payer BC, MEDICAID, SELFPAY ==
[2023-04-19 12:03] LABS: Basophils % 0.2 % (0.1-2.0); Eosinophils # 0.1 K/mm3 (0.0-0.4); Hematocrit 34.5 % (37.0-47.0); Hemoglobin 11.3 g/dL (12.2-16.2); Lymphocytes # 1.7 K/mm3 (0.7-4.5); Lymphocytes % 14.1 % (10-50); Mean Corpuscular HGB Conc 32.7 g/dL (31.8-35.4); Mean Corpuscular Hemoglobin 30.2 pg (27.0-31.2); Mean Corpuscular Volume 92.5 fl (81-99); Mean Platelet Volume 8.1 fl (7.4-10.4); Monocytes # 0.4 K/mm3 (0.1-1.0); Monocytes % 3.2 % (1.7-9.3); Neutrophils # 9.7 K/mm3 (1.8-7.8); Neutrophils % 81.6 % (37.0-80.0); Platelet Count 299 K/mm3 (142-424); Red Blood Count 3.73 M/mm3 (4.20-5.40); Red Cell Distribution Width 14.1 % (11.5-17.5); White Blood Count 11.9 K/mm3 (4.8-10.8)
[2023-04-19 13:33] LABS: Alanine Aminotransferase 13 U/L (12-78); Albumin Level 3.8 g/dl (3.5-5.0); Alkaline Phosphatase 68 U/L (38-126); Aspartate Amino Transferase 22 U/L (14-36); Bilirubin,Indirect 0.3 mg/dL (0.0-0.9); Bilirubin,Total 0.3 mg/dl (0.2-1.3); Bilirubin,Unconjugated 0.5 mg/dL (0.0-1.1); Blood Urea Nitrogen 8 mg/dl (7-17); Calcium 8.8 mg/dl (8.4-10.2); Carbon Dioxide 25 mmol/L (22.0-30.0); Chloride 108 mmol/L (98-107); Chol/HDL Ratio 2.9 (1-3.5); Cholesterol 296 mg/dl (140-200); Estimated Glomerular Filt Rate 193 ml/min (>60); GFR (African American) 233 ML/MIN (>60); Glucose 73 mg/dl (74-100); HDL Cholesterol 101 mg/dl (40-60); Magnesium 1.7 mg/dl (1.6-2.3); Sodium 138 mmol/L (136-145); Total Protein,Serum 6.7 g/dl (6.3-8.2); Triglycerides 207 mg/dl (30-150); VLDL Cholesterol 41 mg/dL (0-40)
[2023-04-19 13:44] LABS: Direct LDL Cholesterol 155.37 mg/dL (100-129)
[2023-04-19 13:49] LABS: Free T4 (Free Thyroxine) 1.15 ng/dl (0.78-2.19)
[2023-04-19 14:03] LABS: Thyroid Stimulating Hormone 1.15 uIU/mL (0.465-4.68)
== END ==
PROVIDERS: Visit Provider Internal Medicine
DX: R06.02 Shortness of breath (principal); R07.9 Chest pain, unspecified; R00.2 Palpitations; Z34.92 Encounter for supervision of normal pregnancy, unspecified, second trimester
CPT/HCPCS: 36415; 80048; 80061; 80076; 83735; 84439; 84443; 85025; 93225

== ENCOUNTER → 2023-05-11 08:16 | Outpatient (CLI) | payer BC, MEDICAID, SELFPAY ==
--- NOTE | 2023-05-11 08:17 | CA_ITS ---
APPROVED REPORT EXAM: Comprehensive 2D, Doppler, and color-flow Echocardiogram Mechanics Supervisor: Pilar Charles RDCS Ht: 5 ft 1 in Wt: 135lbs BSA: 1.60 BP: 100/60 mmHg Indications: PALPS,26 WEEKS PREG 2D Dimensions LVOT 1.83 cm (M/F) 1.5-2.5 M-Mode Dimensions RVDd 1.90 cm (0.9-2.6) LA Diam 2.69 cm (1.9-4.0) LVDd 5.18 cm (3.5-5.7) Ao Diam 2.37 cm (2.0-3.7) LVDs 3.67 cm (3.5-5.7) IVSd 0.57 cm (0.6-1.1) PWd 0.59 cm (0.6-1.1) EF (Teich) 55.60% FS 29.20% EDV (Teich) 128.40 mL TAPSE 2.64 (<1.7) ESV (Teich) 57.00 mL LV Diastology E Decel Time 133.00 (160-240 msec) E/A Ratio 1.0 MED E' 10.40 (< 7 cm/sec) E'/MED E' Ratio 6.06 (>14) LAT E' 12.90 (<10 cm/sec) E/LAT E' Ratio 4.88 (>14) Mitral Valve MV E Max German. 63.00 (40-130 cm/s) MV A Velocity 62.00 (40-130 cm/s) E/A Ratio 1.02 MV Decel. Time 133.00 (160-240 ms) MV PHT 39.00 ms Left Ventricle The left ventricle is normal size. The left ventricular systolic function is normal. The left ventricular ejection fraction is within the normal range. There is normal left ventricular wall thickness. There is normal LV segmental wall motion. The left ventricular diastolic function is normal. LVEF is 55%. Right Ventricle The right ventricle is normal size. The right ventricular systolic function is normal. Atria The left atrium size is normal. The right atrium size is normal. Dopper demonstrates a possible interatrial shunt. Adequate visualization in subcostal views is difficult due to . Aortic Valve The aortic valve is trileaflet. The aortic valve opens well. There is no aortic valvular stenosis. Trace aortic regurgitation. Mitral Valve There is mild bileaflet mitral prolapse. No evidence of mitral valve stenosis. Mild mitral regurgitation. The MR jet is eccentric and is posteriorly directed. No evidence of mitral annular disjunction (MAD). Tricuspid Valve The tricuspid valve leaflets are thin and pliable. Trace tricuspid regurgitation. There is insufficient TR jet to estimate RVSP. Pulmonic Valve The pulmonary valve is normal in structure. Trace pulmonic regurgitation. Great Vessels The aortic root is normal in size. The ascending aorta is normal in size. IVC is normal in size and collapses >50% with inspiration. Pericardium There is no pericardial effusion. Other Information Study Quality: Fair Conclusion Normal biventricular size and systolic function. Mild bileaflet MV prolapse. Mild, posteriorly directed MR. No evidence of mitral annular disjunction (MAD). Dopper demonstrates a possible interatrial shunt. Adequate visualization in subcostal views is difficult due to . Further evaluation for possible interatrial shunt with limited TTE with agitated saline (bubble study) is recommended. Of note, bubble study in is not contraindicated. Electronically signed by : Kasandra Leonard, 05/11/2023 16:03:31
[2023-05-11 08:59] LABS: Basophils % 0.1 % (0.1-2.0); Eosinophils # 0.1 K/mm3 (0.0-0.4); Eosinophils % 0.8 % (0.1-12.0); Hematocrit 32.3 % (37.0-47.0); Lymphocytes # 1.8 K/mm3 (0.7-4.5); Lymphocytes % 16.1 % (10-50); Mean Corpuscular HGB Conc 34.1 g/dL (31.8-35.4); Mean Corpuscular Hemoglobin 31.1 pg (27.0-31.2); Mean Corpuscular Volume 91.4 fl (81-99); Mean Platelet Volume 8.8 fl (7.4-10.4); Monocytes # 0.5 K/mm3 (0.1-1.0); Neutrophils # 8.9 K/mm3 (1.8-7.8); Platelet Count 305 K/mm3 (142-424); Red Blood Count 3.54 M/mm3 (4.20-5.40); Red Cell Distribution Width 15.2 % (11.5-17.5); White Blood Count 11.3 K/mm3 (4.8-10.8)
[2023-05-11 09:11] LABS: Glucose,Fasting 83 mg/dl (74-100)
[2023-05-11 10:32] LABS: Glucose 1 Hour 116 mg/dL (74-100)
== END ==
PROVIDERS: PCP Obstetrics & Gynecology; Visit Provider Internal Medicine
DX: Z34.92 Encounter for supervision of normal pregnancy, unspecified, second trimester (principal); Z3A.23 23 weeks gestation of pregnancy; R00.2 Palpitations; R06.02 Shortness of breath; R07.9 Chest pain, unspecified
CPT/HCPCS: 36415; 82951; 85025; 93306

== ENCOUNTER → 2023-05-30 14:30 | Outpatient (CLI) | payer BC, MEDICAID, SELFPAY ==
[2023-05-30 14:55] LABS: Fetal Membrane Rupture (Rapid) Negative (Negative)
== END ==
PROVIDERS: Visit Provider Obstetrics & Gynecology
DX: O42.90 Premature rupture of membranes, unspecified as to length of time between rupture and onset of labor, unspecified weeks of gestation (principal); Z3A.28 28 weeks gestation of pregnancy
CPT/HCPCS: 84112

== ENCOUNTER → 2023-05-31 10:55 | Outpatient (CLI) | payer BC, MEDICAID, SELFPAY ==
--- NOTE | 2023-05-31 10:58 | US_ITS ---
PROCEDURE: US OB FOLLOW UP CLINICAL INDICATION: Leaking Amniotic Fluid US OB Growth with TRACEY COMPARISON: US US OB /MATERNAL DETAIL from 04/04/2023 FINDINGS: Transabdominal sonographic images of the uterus were obtained. The following parameters are obtained: From her established due date she is 28weeks 6days Viable fetus in the cephalic presentation with an anterior placenta grade 2. heart rate: 146bpm bpm. The cervix measures 2.84 cm. BPD: 30weeks 5days HC: 31weeks 0 days AC: 29weeks 6days FL: 29weeks 0 days Estimated weight 3lb 3oz, 1446 grams. 70 percentile. HC/AC: 1.1 FL/BPD: 0.72 FL/AC: 0.21 Amniotic fluid index: 18.14cm No obvious anomalies evident. profile seen, nasion, diaphragm, stomach, bladder, kidneys, three-vessel cord, four chamber heart appear normal. IMPRESSION: 1. Viable fetus in the cephalic presentation. Anterior placenta grade 2. 2. The fluid is within normal limits with an amniotic fluid index of 18.1 cm. 3. Fetus is active. 4. There has been good interval growth with the fetus currently 70th percentile. Dictated by: Ajay Woodson MD 05/31/2023 21:20 Ajay Woodson MD in OV 05/31/2023 21:20
== END ==
PROVIDERS: Visit Provider Obstetrics & Gynecology
DX: O42.90 Premature rupture of membranes, unspecified as to length of time between rupture and onset of labor, unspecified weeks of gestation (principal); Z3A.28 28 weeks gestation of pregnancy
CPT/HCPCS: 76816

== ENCOUNTER → 2023-06-07 13:35 | Outpatient (CLI) | payer BC, MEDICAID, SELFPAY ==
--- NOTE | 2023-06-07 13:40 | CA_ITS ---
APPROVED REPORT EXAM: Limited 2D Echocardiogram Gang Supervisor: Mehnaz Moreno RCS, RVS Ht: 5 ft 1 in Wt: 149lbs BSA: 1.67 BP: 86/50 mmHg Indications: 29 weeks Echo Enhancing Agent Indication: Rule Out Septal Defect Agent(s) / Amount(s) Used: Agitated Saline 30 cc Comments: Equivocal for shunt Other Information Study Quality: Technically Difficult Conclusion This is a limited study to evaluate for interatrial shunt. Administration of agitated saline (bubble study) demonstrates equivocal presence of interatrial shunt. Bubbles were eventually noted in the LA, but following an indeterminate number of cardiac cycles. Therefore distinction between interatrial vs. intrapulmonary shunts cannot be made. If clinically indicated, further evaluation for PFO may be performed by LANIE. Electronically signed by : Kasandra Leonard MD 06/08/2023 23:23:24
== END ==
PROVIDERS: Visit Provider Nurse Practitioner
DX: Q20.5 Discordant atrioventricular connection (principal)
CPT/HCPCS: 93308

== ENCOUNTER → 2023-07-04 23:32 | Outpatient (CLI) | payer BC, MEDICAID, SELFPAY ==
[2023-07-04 17:13] LABS: Adenovirus,PCR Not Detected (NotDetected); Coronavirus 19, PCR Not Detected (NotDetected); Coronavirus 229E Not Detected (NotDetected); Coronavirus NL63 Not Detected (NotDetected); Coronavirus OC43 Not Detected (NotDetected); Coronovirus HKU1,PCR Not Detected (NotDetected); Human Metapneumovirus Not Detected (NotDetected); Influenza A, PCR Not Detected (NotDetected); Influenza AH1, 2009 Not Detected (NotDetected); Influenza AH1, PCR Not Detected (NotDetected); Influenza AH3,PCR Not Detected (NotDetected); Influenza B, PCR Not Detected (NotDetected); Parainfluenza 1, PCR Not Detected (NotDetected); Parainfluenza 2, PCR Not Detected (NotDetected); Parainfluenza 3, PCR Not Detected (NotDetected); Parainfluenza 4, PCR Not Detected (NotDetected); Respiratory Syncytial Virus Not Detected (NotDetected); Rhinovirus/Enterovirus Not Detected (NotDetected)
== END ==
PROVIDERS: PCP Nurse Practitioner Family; Visit Provider Nurse Practitioner Family
DX: R06.02 Shortness of breath (principal); R05.8 Other specified cough
CPT/HCPCS: 87632; 87635

== ENCOUNTER → 2023-07-06 08:05 | Outpatient (CLI) | payer BC, MEDICAID, SELFPAY ==
[2023-07-06 18:07] LABS: Basophils % 0.2 % (0.1-2.0); Eosinophils # 0.1 K/mm3 (0.0-0.4); Eosinophils % 0.7 % (0.1-12.0); Hematocrit 28.2 % (37.0-47.0); Hemoglobin 9.8 g/dL (12.2-16.2); Lymphocytes # 1.9 K/mm3 (0.7-4.5); Lymphocytes % 14.4 % (10-50); Mean Corpuscular HGB Conc 34.6 g/dL (31.8-35.4); Mean Corpuscular Hemoglobin 30.1 pg (27.0-31.2); Mean Corpuscular Volume 86.9 fl (81-99); Mean Platelet Volume 8.6 fl (7.4-10.4); Monocytes # 0.7 K/mm3 (0.1-1.0); Neutrophils # 10.7 K/mm3 (1.8-7.8); Neutrophils % 79.8 % (37.0-80.0); Platelet Count 298 K/mm3 (142-424); Red Blood Count 3.25 M/mm3 (4.20-5.40); Red Cell Distribution Width 16.7 % (11.5-17.5); White Blood Count 13.4 K/mm3 (4.8-10.8)
[2023-07-06 19:02] LABS: Thyroid Stimulating Hormone 1.56 uIU/mL (0.465-4.68)
[2023-07-06 19:06] LABS: Ferritin 10.9 ng/ml (6.24-137)
[2023-07-08 07:08] LABS: Triiodothyronine (T3) Free 2.6 pg/mL (2.0-4.4)
== END ==
PROVIDERS: PCP Nurse Practitioner Family; Visit Provider Nurse Practitioner Family
DX: R00.0 Tachycardia, unspecified (principal)
CPT/HCPCS: 82728; 84443; 84481; 85025

== ENCOUNTER 2023-07-16 09:09 | Outpatient (CLI) | payer BC, MEDICAID, SELFPAY ==
[2023-07-16 09:22] VITALS: BMI 29.5
[2023-07-16 09:40] LABS: Microscopic, Urine URINE MICROSCOPIC (MICROSCOPIC)
[2023-07-16 09:53] LABS: Appearance,Urine CLEAR (Clear); Bilirubin,Urine Negative (Negative); Blood, Urine Negative (Negative); Color,Urine YELLOW (Yellow); Glucose,Urine (UA) Negative (Negative); Ketones,Urine Negative (Negative); Leukocyte Esterase,Urine TRACE (Negative); Nitrate,Urine Negative (Negative); Protein,Urine Negative (Negative); Specific Gravity, Urine 1.025 (1.005-1.030); Urobilinogen,Urine 0.2 EU/dl (0.2)
[2023-07-16 10:05] LABS: Barbiturates Screen,Urine Negative ng/ml (<200)
[2023-07-16 10:06] LABS: Amphetamine/Metha Screen,Urine Negative ng/ml (<1000); Benzodiazepines Screen,Urine Negative ng/ml (<200)
[2023-07-16 10:07] LABS: Cannabinoid Screen,Urine Negative ng/ml (<50); Cocaine Screen,Urine Negative ng/ml (<300)
[2023-07-16 10:08] LABS: Methadone Screen,Urine Negative ng/ml (<300)
[2023-07-16 10:09] LABS: Opiate Screen,Urine Negative ng/ml (<300); Phencyclidine Screen,Urine Negative ng/ml (<25)
[2023-07-16 10:10] LABS: WBC,Urine Occasional #/hpf (0-3)
[2023-07-16 10:11] VITALS: BP 105/52; PULSE 124; RESP 18; TEMP 36.8; O2SAT 97; BMI 29.5
[2023-07-16 10:11] LABS: Bacteria,Urine Trace /lpf
== END 2023-07-16 10:40 | disposition home or self-care (01) ==
LOC: OBOUT 09:10 → OB 09:11
PROVIDERS: PCP Nurse Practitioner Family; Visit Provider Obstetrics & Gynecology
DX: O26.893 Other specified pregnancy related conditions, third trimester (principal); O21.9 Vomiting of pregnancy, unspecified; Z3A.35 35 weeks gestation of pregnancy
CPT/HCPCS: 59025; 80305; 81001; G0463

== ENCOUNTER → 2023-07-19 23:30 | Outpatient (CLI) | payer BC, MEDICAID, SELFPAY | PROVIDERS: PCP Nurse Practitioner Family; Visit Provider Obstetrics & Gynecology | DX: Z34.93 Encounter for supervision of normal pregnancy, unspecified, third trimester (principal); Z3A.36 36 weeks gestation of pregnancy | CPT/HCPCS: 86403 ==

== ENCOUNTER → 2023-07-26 21:53 | Outpatient (CLI) | payer BC, MEDICAID, SELFPAY | PROVIDERS: PCP Obstetrics & Gynecology; Visit Provider Obstetrics & Gynecology | DX: Z34.93 Encounter for supervision of normal pregnancy, unspecified, third trimester (principal); Z3A.36 36 weeks gestation of pregnancy | CPT/HCPCS: 86403 ==

== ENCOUNTER → 2023-07-27 13:52 | Outpatient (CLI) | payer BC, MEDICAID, SELFPAY ==
--- NOTE | 2023-07-27 13:52 | US_ITS ---
PROCEDURE: US OB BIOPHYSICAL PROFILE CLINICAL INDICATION: breech presentation COMPARISON: Ultrasound 05/31/2023 FINDINGS: Transabdominal sonographic images of the uterus were obtained. From her established due date she is 37weeks 0 days. The following parameters are obtained: Viable fetus in the cephalic presentation with an anterior placenta grade 3. Average ultrasound age is 38weeks 0 days. Estimated due date by ultrasound is 08/10/2023. Estimated weight is 7lb 8oz, 3408 grams. heart rate: 124bpm bpm. BPD: 37 weeks 1 day HC: 38 weeks 2 days AC: 38 weeks 5 days FL: 37 weeks 3 days HC/AC: 0.96 FL/BPD: 0.8 FL/AC: 0.21 84 percentile Amniotic fluid index: 13.28cm, MVP 7.33 cm. Qualitative AFV: 2 breathing movements: 2 Gross body movements: 2 Tone: 2 Biophysical profile score: 8 No obvious anomalies evident.Kidneys, profile, stomach, bladder, four-chamber view, three-vessel cord appear normal. IMPRESSION: 1. Viable fetus in the cephalic presentation with an anterior placenta grade 3. 2. The fluid is within normal limits with an amniotic fluid index of 13.28 cm. MVP is 7.33 cm. 3. Fetus is 84th percentile and has shown good growth. 4. Biophysical profile 04/24 with good breathing movement and good movement seen. Dictated by: Ajay Woodson MD 07/30/2023 08:54 Ajay Woodson MD in OV 07/30/2023 08:54
== END ==
PROVIDERS: PCP Nurse Practitioner Family; Visit Provider Obstetrics & Gynecology
DX: O32.1XX0 Maternal care for breech presentation, not applicable or unspecified (principal); Z3A.36 36 weeks gestation of pregnancy
CPT/HCPCS: 76816; 76819

== ENCOUNTER 2023-07-30 10:41 | Outpatient (CLI) | payer BC, MEDICAID, SELFPAY ==
[2023-07-30 11:35] LABS: Microscopic, Urine URINE MICROSCOPIC (MICROSCOPIC)
[2023-07-30 11:37] LABS: Appearance,Urine CLEAR (Clear); Blood, Urine Negative (Negative); Color,Urine YELLOW (Yellow); Glucose,Urine (UA) Negative (Negative); Ketones,Urine TRACE (Negative); Leukocyte Esterase,Urine Negative (Negative); Nitrate,Urine Negative (Negative); Protein,Urine Negative (Negative)
[2023-07-30 11:43] LABS: Bilirubin,Urine 1+ (Negative)
[2023-07-30 11:44] LABS: Bacteria,Urine Trace /lpf
[2023-07-30 11:52] LABS: Amphetamine/Metha Screen,Urine Negative ng/ml (<1000); Benzodiazepines Screen,Urine Negative ng/ml (<200)
[2023-07-30 11:53] LABS: Barbiturates Screen,Urine Negative ng/ml (<200); Cannabinoid Screen,Urine Negative ng/ml (<50)
[2023-07-30 11:54] LABS: Cocaine Screen,Urine Negative ng/ml (<300)
[2023-07-30 11:55] LABS: Methadone Screen,Urine Negative ng/ml (<300); Opiate Screen,Urine Negative ng/ml (<300)
[2023-07-30 11:56] LABS: Phencyclidine Screen,Urine Negative ng/ml (<25)
[2023-07-30 13:32] LABS: Albumin Level 3.6 g/dl (3.5-5.0); Albumin/Globulin Ratio 1.1 (1.1-1.8); Anion Gap 11.9 mEq/L (5-15); Aspartate Amino Transferase 35 U/L (14-36); Bilirubin,Total 0.6 mg/dl (0.2-1.3); Blood Urea Nitrogen 8 mg/dl (7-17); Calcium 8.8 mg/dl (8.4-10.2); Carbon Dioxide 24 mmol/L (22.0-30.0); Chloride 102 mmol/L (98-107); Creatinine Clearance Estimated 192 mL/min (50-200); Estimated Glomerular Filt Rate 148 ml/min (>60); GFR (African American) 179 ML/MIN (>60); Globulin 3.2 g/dL (1.3-3.2); Glucose 76 mg/dl (74-100); Potassium 3.9 mmoL/L (3.5-5.1); Sodium 134 mmol/L (136-145); Total Protein,Serum 6.8 g/dl (6.3-8.2)
[2023-07-30 13:33] LABS: Alanine Aminotransferase 20 U/L (12-78); Alkaline Phosphatase 168 U/L (38-126)
[2023-08-03 21:06] LABS: Bile Acids 4.7
== END 2023-07-30 13:40 | disposition home or self-care (01) ==
LOC: OBOUT 10:43 → OB 10:46
PROVIDERS: Obstetrics & Gynecology; PCP Nurse Practitioner Family; Visit Provider Obstetrics & Gynecology
DX: O60.03 Preterm labor without delivery, third trimester (principal); Z3A.37 37 weeks gestation of pregnancy; R11.2 Nausea with vomiting, unspecified; R19.7 Diarrhea, unspecified
CPT/HCPCS: 59025; 80053; 80305; 81001; 82239; 96365; G0463

== ENCOUNTER 2023-08-09 15:40 | Inpatient (IN) | payer BC, MEDICAID, SELFPAY ==
[2023-08-09 16:34] LABS: Basophils % 0.2 % (0.1-2.0); Eosinophils # 0.1 K/mm3 (0.0-0.4); Hematocrit 27.4 % (37.0-47.0); Hemoglobin 9.1 g/dL (12.2-16.2); Lymphocytes # 1.8 K/mm3 (0.7-4.5); Lymphocytes % 12.7 % (10-50); Mean Corpuscular HGB Conc 33.1 g/dL (31.8-35.4); Mean Corpuscular Hemoglobin 26.8 pg (27.0-31.2); Mean Corpuscular Volume 80.7 fl (81-99); Mean Platelet Volume 9.4 fl (7.4-10.4); Monocytes # 0.7 K/mm3 (0.1-1.0); Monocytes % 4.8 % (1.7-9.3); Neutrophils # 11.7 K/mm3 (1.8-7.8); Neutrophils % 81.2 % (37.0-80.0); Platelet Count 332 K/mm3 (142-424); Red Blood Count 3.39 M/mm3 (4.20-5.40); Red Cell Distribution Width 17.6 % (11.5-17.5); White Blood Count 14.3 K/mm3 (4.8-10.8)
[2023-08-09 16:56] VITALS: BMI 30.2
[2023-08-09 17:01] LABS: Microscopic, Urine URINE MICROSCOPIC (MICROSCOPIC)
[2023-08-09 17:04] VITALS: BP 109/62; PULSE 102; RESP 17; TEMP 36.9; O2SAT 100; BMI 30.2
[2023-08-09 17:04] LABS: Appearance,Urine CLEAR (Clear); Bilirubin,Urine Negative (Negative); Blood, Urine Negative (Negative); Color,Urine YELLOW (Yellow); Glucose,Urine (UA) Negative (Negative); Ketones,Urine Negative (Negative); Leukocyte Esterase,Urine 1+ (Negative); Nitrate,Urine Negative (Negative); Protein,Urine TRACE (Negative); Specific Gravity, Urine >= 1.030 (1.005-1.030)
[2023-08-09 17:15] LABS: Benzodiazepines Screen,Urine Negative ng/ml (<200)
[2023-08-09 17:16] LABS: Amphetamine/Metha Screen,Urine Negative ng/ml (<1000)
[2023-08-09 17:17] LABS: Barbiturates Screen,Urine Negative ng/ml (<200); Cannabinoid Screen,Urine Negative ng/ml (<50)
[2023-08-09 17:18] LABS: Bacteria,Urine 1+ /lpf; Calcium Oxalate Crystals,Urine 1+ /lpf; Cocaine Screen,Urine Negative ng/ml (<300); RBC,Urine Occasional #/hpf (0-3); Squamous Epithelial Cell,Urine 20-50 #/hpf (0-5)
[2023-08-09 17:19] LABS: Methadone Screen,Urine Negative ng/ml (<300); Opiate Screen,Urine Negative ng/ml (<300)
[2023-08-09 17:20] LABS: Phencyclidine Screen,Urine Negative ng/ml (<25)
--- NOTE | 2023-08-10 03:05 | P.PNANES_ITS ---
[facility] Disclaimer: The information contained in this section may have been updated after the patient was seen, as this information can be updated by other users. Medical History Anxiety Chest pain Family history of congenital heart disease in grandmother Family history of congenital heart disease in sister History of anemia Migraine Nausea and vomiting during Palpitations Same sex marriage Shortness of breath Tachycardia Surgical History History of left knee surgery History of tonsillectomy S/P wisdom tooth extraction Family History Other Diabetes Social History Smoking Status: Never smoker second hand exposure: No alcohol intake: never substance use type: denies use current occupational status: employed Travel in the last 8 weeks: None [facility] Anesthesia Checklist Patient Identification Patient Identification: Arm Band, Family and Verbal (Name & ) Structural Data Admitted From: Inpatient Planned Operative Procedure/s: Labor Epidural Consent for Planned Operative Procedure(s) Verified: Yes Verified Documents: Surgical Consent (Consent for Labor Epidural) and History and Physical NPO Status Verified Time NPO: 23:30 Chart Verification Results Verified: CBC and BMP Additional verifications Patient : Yes (39 0/7 week IUP for induction of labor) Anesthesia Reactions: No Hx Blood Transfusions: No Blood Transfusion Reaction: No Cephalosporin Allergy: No Cardiovascular Assessment Heart Sounds: S1 & S2 Pulse Rhythm: Irregular Airway Assessment Mallampati Score:: Class II C-Spine Mobility Assessed: Yes TMJ Mobility Assessed: Yes Dentition: Good Dentition (Nothing loose per pt.) Neurological Assessment Level of Consciousness: Awake, Alert, Appropriate and Restless Hx Seizures: No Numbness or tingling in extremities: No Anesthesia Plan Anesthesia Risk discussed: Yes Anesthesia Plan: Verified ASA Class: II Anesthesia Type: Epidural Preoperative Comments Pre-Operative Comments: Pt. seen and consented at 0230
--- NOTE | 2023-08-10 03:10 | P.PNANES_ITS ---
[facility] Disclaimer: The information contained in this section may have been updated after the patient was seen, as this information can be updated by other users. Medical History Anxiety Chest pain Family history of congenital heart disease in grandmother Family history of congenital heart disease in sister History of anemia Migraine Nausea and vomiting during Palpitations Same sex marriage Shortness of breath Tachycardia Surgical History History of left knee surgery History of tonsillectomy S/P wisdom tooth extraction Family History Other Diabetes Social History Smoking Status: Never smoker second hand exposure: No alcohol intake: never substance use type: denies use current occupational status: employed Travel in the last 8 weeks: None [facility] Anesthesia Checklist Structural Data Planned Operative Procedure/s: Labor epidural Additional verifications Anesthesia Reactions: No Hx Blood Transfusions: No Blood Transfusion Reaction: No Cephalosporin Allergy: No Anesthesia Plan Anesthesia Type: Epidural
--- NOTE | 2023-08-10 03:12 | P.PN_ITS ---
Subjective *Date: 08/10/23 *Time: 03:12 Interval history: Unsuccessful attempt to place labor epidural at L4-5 & L3-4. Patient unable to position adequately. Patient became verbally abusive, instructing me to get the fucking needle out of my back and get the fuck out of my room. Touhy needle not in patient at that time. Labor epidural placement aborted. Patient later requested a different anesthesia provider attempt the epidural placment. Marquez Donahue called and requested to come assess patient. Exam Data for Last 24 hours Vital signs and Labs for Last 24 Hours: Temp Pulse Resp BP Pulse Ox O2 Del Method 98.5 F 102 H 17 109/62 L 100 Room Air 08/09/23 17:04 08/09/23 17:04 08/09/23 17:04 08/09/23 17:04 08/09/23 17:04 08/09/23 17:04 Laboratory Results - last 24 hr 08/09/23 16:00: Urine Color Yellow, Urine Appearance Clear, Urine pH 6.0, Ur Specific [place] >= 1.030, Urine Protein Trace, Urine Glucose (UA) Negative, Urine Ketones Negative, Urine Blood Negative, Urine Nitrate Negative, Urine Bilirubin Negative, Urine Urobilinogen 1.0, Ur Leukocyte Esterase 1+ A, Urine RBC Occasional, Urine WBC 10-20, Ur Squamous Epith Cells 20-50, Calcium Oxalate Crystal 1+, Urine Bacteria 1+, Urine Opiates Screen Negative, Urine Methadone Screen Negative, Ur Barbituates Screen Negative, Ur Phencyclidine Scrn Negative, Ur Amphetamines Screen Negative, U Benzodiazepines Scrn Negative, Urine Cocaine Screen Negative, U Marijuana (THC) Screen Negative 08/09/23 16:15: WBC 14.3 H, RBC 3.39 L, Hgb 9.1 L, Hct 27.4 L, MCV 80.7 L, MCH 26.8 L, MCHC 33.1, RDW 17.6 H, Plt Count 332, MPV 9.4, Neut % (Auto) 81.2 H, Lymph % (Auto) 12.7, [place] % (Auto) 4.8, Eos % (Auto) 1.0, Baso % (Auto) 0.2, Neut # (Auto) 11.7 H, Lymph # (Auto) 1.8, [place] # (Auto) 0.7, Eos # (Auto) 0.1, Baso # (Auto) 0.0, Blood Type A Positive, Antibody Screen Negative I & O for Last 24 hours: Intake & Output 08/07/23 08/08/23 08/09/23 08/10/23 23:59 23:59 23:59 23:59 Weight 72.575 kg
--- NOTE | 2023-08-10 07:26 | HMH.PHAINT1 ---
Pharmacy Intervention Comments: MEDICATION RECONCILIATION COMPLETED ON PATIENT USING EXTERNAL FILL HISTORY FROM PHARMACY. -RYANN LEE, BEATRIZD
--- NOTE | 2023-08-10 12:17 | EXP.HP ---
History of Present Illness *Admission Date: 08/10/23 *Reason for visit:: induction *History of present illness: Cammy Moreno is a 28-year-old -0-2-2 who is presenting to labor and delivery for a elective induction of labor. The patient presented last night for an induction and delivery today at 39 weeks and 0 days gestation. She has an JOHN of 08/17/2023 based on her last menstrual period and confirmed by her questions to ultrasound. Her has been uncomplicated. In april, at 24 weeks gestation, she was evaluated by cardiology for SOA and tachycardia. She was cleared with a benign work up. She had a echo with PDC around that time as well demonstrated normal anatomy, echo within normal limits, EFW 61 %ile, no evidence of arrhythmia during exam. Growth ultrasound on 07/27/2023 demonstrating EFW of 84th percentile. TRACEY was within normal limits and BPP was 8 out of 8 A+, antibody negative, rubella immune, hepatitis B negative, hepatitis C negative, RPR negative, HIV negative 1 hour GTT: 116 GBS negative PFSH PFS Disclaimer: The information contained in this section may have been updated after the patient was seen, as this information can be updated by other users. Medical History (Updated 08/10/23 @ 12:43 by Brigid Meza DO) Anxiety Chest pain Family history of congenital heart disease in grandmother Family history of congenital heart disease in sister History of anemia Migraine Nausea and vomiting during Palpitations Same sex marriage Shortness of breath Tachycardia Surgical History History of left knee surgery History of tonsillectomy S/P wisdom tooth extraction Family History Other Diabetes Social History Smoking Status: Never smoker second hand exposure: No alcohol intake: never substance use type: denies use current occupational status: employed Travel in the last 8 weeks: None Review of Systems Review of Systems Review of systems (narrative): Review of Systems Constitutional: Denies fever, chills, and sweats Eyes: Denies vision change/ pain Respiratory: Denies cough and shortness of breath Cardiovascular: Denies chest pain and lightheadedness Gastrointestinal: On presentation patient denied contractions. Denies nausea, vomiting. Genitourinary: Denies dysuria and incontinence Musculoskeletal: Denies shoulder pain and back pain Neurological: Denies change in speech or headaches Meds Home Medications and Allergies Home Medications Medication Instructions Recorded Confirmed Type ferrous sulfate 325 mg (65 mg 325 mg PO DAILY Supplement 08/10/23 08/10/23 History iron) tablet (FeroSul) New Prescriptions to Start Prescriptions: Allergies Allergy/AdvReac Type Severity Reaction Status Date / Time erythromycin base Allergy Severe HIVES AND Verified 08/09/23 17:13 [From ERYTHROCIN] SHORTNESS OF AIR Sulfa (Sulfonamide Allergy Mild ITCHING Verified 08/09/23 17:14 Antibiotics) Exam Data for Last 24 hours Vital signs and Labs for Last 24 Hours: Temp Pulse Resp BP Pulse Ox O2 Del Method 98.5 F 102 H 17 109/62 L 100 Room Air 08/09/23 17:04 08/09/23 17:04 08/09/23 17:04 08/09/23 17:04 08/09/23 17:04 08/09/23 17:04 Laboratory Results - last 24 hr 08/09/23 16:00: Urine Color Yellow, Urine Appearance Clear, Urine pH 6.0, Ur Specific [place] >= 1.030, Urine Protein Trace, Urine Glucose (UA) Negative, Urine Ketones Negative, Urine Blood Negative, Urine Nitrate Negative, Urine Bilirubin Negative, Urine Urobilinogen 1.0, Ur Leukocyte Esterase 1+ A, Urine RBC Occasional, Urine WBC 10-20, Ur Squamous Epith Cells 20-50, Calcium Oxalate Crystal 1+, Urine Bacteria 1+, Urine Opiates Screen Negative, Urine Methadone Screen Negative, Ur Barbituates Screen Negati
--- NOTE | 2023-08-10 14:03 | P.PCN_ITS ---
Delivery Note Delivery Date:: 08/10/23 Delivery Time:: 14:23 Anesthesia Type: Epidural Was labor medically induced?: Yes Induction method: per misoprostol protocol Gestational age (weeks): 39 Infant delivered prior to 39 weeks?: No Gender: Female LAC or MLE?: LAC Delivery Procedure:: Preoperative diagnosis: 1. at 39 completed this weeks gestation, vertex 2. Rh positive 3. GBS negative 4. Desires elective induction of labor Postoperative diagnosis: 1. at 39 completed this weeks gestation, vertex 2. Rh positive 3. GBS negative 4. Desires elective induction of labor EBL: 100mL Specimen: 1. Cord blood Findings: 1. Liveborn viable female infant: Laura. Apgars 7/9 at 1 and 5 minutes resp ectively. Weight pending at time of dictation 2. 2nd degree midline perineal laceration Complications: None Cammy Moreno is a 28-year-old who presented to Labor and delivery for scheduled IOL. She recieved one dose of 25mcg PV Cytotec. Following that dose at the 4hour check for redose she was noted to be kirill regularly and made cervical change to 3cm. She continued to progress on her own. I augmented with amniotomy at 1130 and she progressed to complete. FHT were reassuring throughout labor. The was noted to be in ADELAIDA position. With effective maternal pushing there was a nonoperative spontaneous vaginal delivery at 1423. There was a nuchal cord x1 that was delivered through. The anterior left shoulder delivered, followed by the posterior shoulder without dystocia. The body and lower extremities delivered without difficulty. The infant was bulb suctioned and was crying immediately following delivery. The was placed on the maternal abdomen and greater than one minute was appreciated for delayed cord clamping. The umbilical cord was doubly clamped and cut. Cord blood was collected and sent for routine testing. The placenta delivered with cord tr action and suprapubic contertraction. Pitocin was started and the placenta and cord were inspected. The placenta was noted to be intact, with a 3 vessel cord. The uterus was firm and bleeding was minimal. The perineum, vaginal bass, cervix, and paraurethral area were inspected thoroughly. There was a second- degree midline perineal laceration. The laceration was repaired in the usual fashion using 2-0 Vicryl suture. The laceration was hemostatic. The cervix and vaginal bass were inspected and noted to be hemostatic. This concluded the delivery. The patient was counseled regarding the events of the delivery and repair. The patient tolerated the delivery well. All counts were correct by nursing. Mother and infant were doing well upon my leaving the delivery room. Mother and baby were stable and bonding when leaving delivery room. Laceration:: vaginal Placental Delivery Description: Spontaneous
[2023-08-10 20:23] VITALS: BP 97/50; PULSE 92; RESP 18; TEMP 36.8; O2SAT 98
[2023-08-11 04:26] VITALS: BP 87/52; PULSE 87; RESP 20; TEMP 37.1; O2SAT 98
[2023-08-11 07:52] LABS: Basophils % 0.2 % (0.1-2.0); Eosinophils # 0.1 K/mm3 (0.0-0.4); Eosinophils % 0.9 % (0.1-12.0); Lymphocytes # 2.2 K/mm3 (0.7-4.5); Lymphocytes % 15.7 % (10-50); Mean Corpuscular Hemoglobin 26.5 pg (27.0-31.2); Mean Corpuscular Volume 82.9 fl (81-99); Monocytes # 0.6 K/mm3 (0.1-1.0); Neutrophils % 79.2 % (37.0-80.0); Platelet Count 279 K/mm3 (142-424); Red Blood Count 3.38 M/mm3 (4.20-5.40); Red Cell Distribution Width 17.8 % (11.5-17.5); White Blood Count 13.9 K/mm3 (4.8-10.8)
[2023-08-11 08:17] VITALS: BP 104/59; PULSE 95; RESP 18; TEMP 36.9; O2SAT 99
--- NOTE | 2023-08-11 10:01 | EXP.DC.SUM ---
General Admission date:: 08/09/23 Discharge date: 08/11/23 HPI HPI HPI: Cammy Moreno is a 28-year-old -0-2-2 who is presenting to labor and delivery for a elective induction of labor. The patient presented last night for an induction and delivery today at 39 weeks and 0 days gestation. She has an JOHN of 08/17/2023 based on her last menstrual period and confirmed by her questions to ultrasound. Her has been uncomplicated. In april, at 24 weeks gestation, she was evaluated by cardiology for SOA and tachycardia. She was cleared with a benign work up. She had a echo with PDC around that time as well demonstrated normal anatomy, echo within normal limits, EFW 61 %ile, no evidence of arrhythmia during exam. Growth ultrasound on 07/27/2023 demonstrating EFW of 84th percentile. TRACEY was within normal limits and BPP was 8 out of 8 A+, antibody negative, rubella immune, hepatitis B negative, hepatitis C negative, RPR negative, HIV negative 1 hour GTT: 116 GBS negative Hospital Course Hospital Course Hospital Course: Cammy Moreno is a 28-year-old -0-2-3 day #1 from normal spontaneous vaginal delivery with a second-degree perineal laceration. Her was uncomplicated. Delivery course was uneventful. She is ambulating, voiding, tolerating p.o. without difficulty, dysuria, or nausea and vomiting. Her bleeding is scant and her pain is well-controlled. She desires discharge home today. Routine discharge instructions reviewed with the patient and her partner and all questions were addressed. Patient will follow-up 2 weeks Exam Data for Last 24 hours Vital signs and Labs for Last 24 Hours: Temp Pulse Resp BP Pulse Ox O2 Del Method 98.4 F 95 H 18 104/59 L 99 Room Air 08/11/23 08:17 08/11/23 08:17 08/11/23 08:17 08/11/23 08:17 08/11/23 08:17 08/11/23 08:17 Laboratory Results - last 24 hr 08/11/23 07:37: WBC 13.9 H, RBC 3.38 L, Hgb 9.0 L, Hct 28.0 L, MCV 82.9, MCH 26.5 L, MCHC 32.0, RDW 17.8 H, Plt Count 279, MPV 10.0, Neut % (Auto) 79.2, Lymph % (Auto) 15.7, [place] % (Auto) 4.0, Eos % (Auto) 0.9, Baso % (Auto) 0.2, Neut # (Auto) 11.0 H, Lymph # (Auto) 2.2, [place] # (Auto) 0.6, Eos # (Auto) 0.1, Baso # (Auto) 0.0 I & O for Last 24 hours: Intake & Output 08/08/23 08/09/23 08/10/23 08/11/23 23:59 23:59 23:59 23:59 Weight 160 lb Narrative: General: patient is alert oriented in no acute distress and responds appropriately to questions. Appears to be in minimal pain. Sitting up in the chair and doing well HEENT: NCAT, EOMI, moist mucous membranes, neck supple with full ROM Cardiovascular: RRR +S1/S2, no murmurs or rubs Pulmonary: Clear to auscultation bilaterally, nonlabored breathing, symmetric chest rise Abdominal: Fundus below the umbilicus, firm, and tenderness appropriate for the period. Extremities: trace edema, no tenderness or cyanosis noted Skin: Normal turgor, intact, warm. Negative for erythema, pallor, petechia, or lesions Neurologic: Negative for sensory or motor deficit Psychiatric: Normal affect, normal thought process, good judgment and insight, no depression or anxious mood appreciated. Constitutional Constitutional: no acute distress *Routine HEENT Exam Head: Present normocephalic Eye: Present EOMI and PERRL ENT: Present mucous membranes moist *Routine Neck Exam Neck: Present supple; Absent lymphadenopathy *Routine Respiratory Exam Respiratory: Present CTA bilaterally *Routine Cardiovascular Exam Cardiovascular: Present RRR *Routine Abdominal Exam Abdominal: Present soft and normoactive bowel sounds; Absent tenderness *Routine Extremities Exam Extremities: Absent cyanosis, clubbing or edema *Routine Skin Exam Skin: Present warm; Absent rash *Routine Neurological Exam Neurological: Present alert and oriented X3 Results Data Completed and Pending Labs on day of discharge: Labs from last 24 hours
== END 2023-08-11 16:40 | disposition home or self-care (01) | DRG 807 ==
PROVIDERS: Admitting Provider Obstetrics & Gynecology; PCP Nurse Practitioner Family; Visit Provider Obstetrics & Gynecology
DX: O70.1 Second degree perineal laceration during delivery (principal); Z37.0 Single live birth; Z3A.39 39 weeks gestation of pregnancy; O99.02 Anemia complicating childbirth
CPT/HCPCS: 59409; 59025; 80305; 81001; 85025; 86850; 87086; J0595

== ENCOUNTER 2023-10-15 18:35 | Outpatient (CLI) | payer OTHER, MEDICAID, SELFPAY ==
[2023-10-15 17:30] LABS: Adenovirus,PCR Not Detected (NotDetected); Coronavirus 19, PCR Not Detected (NotDetected); Coronavirus 229E Not Detected (NotDetected); Coronavirus NL63 Not Detected (NotDetected); Coronavirus OC43 Not Detected (NotDetected); Coronovirus HKU1,PCR Not Detected (NotDetected); Human Metapneumovirus Not Detected (NotDetected); Influenza A, PCR Not Detected (NotDetected); Influenza AH1, 2009 Not Detected (NotDetected); Influenza AH1, PCR Not Detected (NotDetected); Influenza AH3,PCR Not Detected (NotDetected); Influenza B, PCR Not Detected (NotDetected); Parainfluenza 1, PCR Not Detected (NotDetected); Parainfluenza 2, PCR Not Detected (NotDetected); Parainfluenza 3, PCR Not Detected (NotDetected); Parainfluenza 4, PCR Not Detected (NotDetected); Respiratory Syncytial Virus Not Detected (NotDetected); Rhinovirus/Enterovirus Not Detected (NotDetected)
== END 2023-10-15 23:59 ==
PROVIDERS: PCP Nurse Practitioner Family; Visit Provider Nurse Practitioner Family
DX: R50.9 Fever, unspecified (principal)
CPT/HCPCS: 87632; 87635

== ENCOUNTER 2024-03-14 08:52 | Outpatient (CLI) | payer OTHER, MEDICAID, SELFPAY ==
[2024-03-14 16:45] LABS: Adenovirus,PCR Not Detected (NotDetected); Bordetella Pertussis Not Detected (NotDetected); Chlamydophila Pneumoniae, PCR Not Detected (NotDetected); Coronavirus 19, PCR Not Detected (NotDetected); Coronavirus 229E Not Detected (NotDetected); Coronavirus NL63 Not Detected (NotDetected); Coronavirus OC43 Not Detected (NotDetected); Coronovirus HKU1,PCR Not Detected (NotDetected); Influenza A, PCR Not Detected (NotDetected); Influenza AH1, 2009 Not Detected (NotDetected); Influenza AH1, PCR Not Detected (NotDetected); Influenza AH3,PCR Not Detected (NotDetected); Influenza B, PCR Not Detected (NotDetected); Mycoplasma Pneumoniae, PCR Not Detected (NotDetected); Parainfluenza 1, PCR Not Detected (NotDetected); Parainfluenza 2, PCR Not Detected (NotDetected); Parainfluenza 3, PCR Not Detected (NotDetected); Parainfluenza 4, PCR Not Detected (NotDetected); Respiratory Syncytial Virus Not Detected (NotDetected); Rhinovirus/Enterovirus Not Detected (NotDetected)
[2024-03-14 18:59] LABS: Human Metapneumovirus Detected (NotDetected)
== END 2024-03-14 23:59 | disposition home or self-care (01) ==
LOC: LAB.DROPOF 03-17 08:53
PROVIDERS: PCP Nurse Practitioner Family; Visit Provider Nurse Practitioner Family
DX: R50.9 Fever, unspecified (principal)
CPT/HCPCS: 87581; 87632; 87635; 87798

== ENCOUNTER 2024-07-28 15:32 | Outpatient (CLI) | payer OTHER, MEDICAID, SELFPAY ==
[2024-07-28 13:14] LABS: Adenovirus,PCR Not Detected (NotDetected); Coronavirus 229E Not Detected (NotDetected); Coronavirus NL63 Not Detected (NotDetected); Coronavirus OC43 Not Detected (NotDetected); Coronovirus HKU1,PCR Not Detected (NotDetected); Human Metapneumovirus Not Detected (NotDetected); Influenza A, PCR Not Detected (NotDetected); Rhinovirus/Enterovirus Not Detected (NotDetected)
[2024-07-28 18:16] LABS: Bordetella Pertussis Not Detected (NotDetected); Chlamydophila Pneumoniae, PCR Not Detected (NotDetected); Coronavirus 19, PCR Not Detected (NotDetected); Influenza AH1, 2009 Not Detected (NotDetected); Influenza AH1, PCR Not Detected (NotDetected); Influenza AH3,PCR Not Detected (NotDetected); Influenza B, PCR Not Detected (NotDetected); Mycoplasma Pneumoniae, PCR Not Detected (NotDetected); Parainfluenza 1, PCR Not Detected (NotDetected); Parainfluenza 2, PCR Not Detected (NotDetected); Parainfluenza 3, PCR Not Detected (NotDetected); Parainfluenza 4, PCR Not Detected (NotDetected); Respiratory Syncytial Virus Not Detected (NotDetected)
== END 2024-07-28 23:59 | disposition home or self-care (01) ==
LOC: LAB.DROPOF 15:32
PROVIDERS: PCP Nurse Practitioner Family; Visit Provider Nurse Practitioner Family
DX: R50.9 Fever, unspecified (principal); R53.83 Other fatigue; N89.9 Noninflammatory disorder of vagina, unspecified; R61 Generalized hyperhidrosis
CPT/HCPCS: 87086; 87265; 87486; 87581; 87632; 87635

== ENCOUNTER 2024-10-14 13:26 | Outpatient (CLI) | payer OTHER, MEDICAID, SELFPAY ==
[2024-10-14 13:32] LABS: Basophils % 0.3 % (0.1-2.0); Eosinophils # 0.1 K/mm3 (0.0-0.4); Eosinophils % 1.2 % (0.1-12.0); Hemoglobin 12.6 g/dL (12.2-16.2); Lymphocytes # 2.3 K/mm3 (0.7-4.5); Lymphocytes % 31.1 % (10-50); Mean Corpuscular HGB Conc 33.2 g/dL (31.8-35.4); Mean Corpuscular Hemoglobin 29.4 pg (27.0-31.2); Mean Corpuscular Volume 88.6 fl (81-99); Mean Platelet Volume 10.4 fl (7.4-10.4); Monocytes # 0.4 K/mm3 (0.1-1.0); Monocytes % 5.1 % (1.7-9.3); Neutrophils # 4.6 K/mm3 (1.8-7.8); Platelet Count 344 K/mm3 (142-424); Red Blood Count 4.29 M/mm3 (4.20-5.40); Red Cell Distribution Width 13.7 % (11.5-17.5); White Blood Count 7.4 K/mm3 (4.8-10.8)
[2024-10-14 14:11] LABS: Free T4 (Free Thyroxine) 1.22 ng/dl (0.78-2.19)
[2024-10-14 14:12] LABS: T4 (Thyroxine) 10.4 ug/dl (5.53-11.0)
[2024-10-14 14:26] LABS: Thyroid Stimulating Hormone 1.16 uIU/mL (0.465-4.68)
[2024-10-14 14:30] LABS: Ferritin 53.1 ng/ml (6.24-137)
[2024-10-15 08:28] LABS: Thyroid Peroxidase Antibodies 10 IU/mL (0-34)
[2024-10-16 10:17] LABS: Thyroglobulin Level <1.0 IU/mL (0.0-0.9)
== END 2024-10-14 23:59 | disposition home or self-care (01) ==
LOC: LAB.DROPOF 13:26
PROVIDERS: PCP Nurse Practitioner Family; Visit Provider Nurse Practitioner Family
DX: E01.0 Iodine-deficiency related diffuse (endemic) goiter (principal); D64.9 Anemia, unspecified
CPT/HCPCS: 82728; 84436; 84439; 84443; 84481; 85025; 86376; 86800

== ENCOUNTER 2024-10-22 07:44 | Outpatient (CLI) | payer MEDICAID, SELFPAY ==
--- NOTE | 2024-10-22 07:45 | US_ITS ---
FINAL REPORT TECHNIQUE: Ultrasound images of the thyroid were obtained. CLINICAL HISTORY: thyromegaly FINDINGS: The right lobe of the thyroid measures 5.2 x 1.1 x 1.47 patient cm. It is normal in echogenicity. The left lobe of the thyroid measures 4.8 x 1.3 x 1.7 cm. It is normal in echogenicity. A cystic structure measuring 1.1 cm seen in the left lobe. IMPRESSION: 1.1 cm cystic structure in the left lobe of the thyroid. Reviewed, Interpreted and Dictated by Aguilar Xiong MD Transcribed by Ofelia Isaac Authenticated and [facility]
== END 2024-10-22 23:59 | disposition home or self-care (01) ==
LOC: RAD 07:45
PROVIDERS: PCP Nurse Practitioner Family; Visit Provider Nurse Practitioner Family
DX: E01.0 Iodine-deficiency related diffuse (endemic) goiter (principal)
CPT/HCPCS: 76536

== ENCOUNTER 2024-10-24 13:33 | Outpatient (CLI) | payer MEDICAID, SELFPAY ==
[2024-10-24 13:19] LABS: Coronavirus 19, PCR Not Detected (NotDetected); Human Rhinovirus Not Detected (NotDetected); Influenza A, PCR Not Detected (NotDetected); Influenza B, PCR Not Detected (NotDetected); Respiratory Syncytial Virus Not Detected (NotDetected)
== END 2024-10-24 23:59 | disposition home or self-care (01) ==
LOC: LAB.DROPOF 13:33
PROVIDERS: PCP Nurse Practitioner Family; Visit Provider Nurse Practitioner Family
DX: R50.9 Fever, unspecified (principal)
CPT/HCPCS: 87631

== ENCOUNTER 2024-10-29 10:36 | Outpatient (CLI) | payer MEDICAID, SELFPAY ==
[2024-10-29 13:19] LABS: Adenovirus,PCR Not Detected (NotDetected); Bordetella Pertussis Not Detected (NotDetected); Chlamydophila Pneumoniae, PCR Not Detected (NotDetected); Coronavirus 19, PCR Not Detected (NotDetected); Coronavirus 229E Not Detected (NotDetected); Coronavirus NL63 Not Detected (NotDetected); Coronavirus OC43 Not Detected (NotDetected); Coronovirus HKU1,PCR Not Detected (NotDetected); Human Metapneumovirus Not Detected (NotDetected); Influenza A, PCR Not Detected (NotDetected); Influenza AH1, PCR Not Detected (NotDetected); Influenza AH3,PCR Not Detected (NotDetected); Influenza B, PCR Not Detected (NotDetected); Mycoplasma Pneumoniae, PCR Not Detected (NotDetected); Parainfluenza 1, PCR Not Detected (NotDetected); Parainfluenza 2, PCR Not Detected (NotDetected); Parainfluenza 3, PCR Not Detected (NotDetected); Parainfluenza 4, PCR Not Detected (NotDetected); Respiratory Syncytial Virus Not Detected (NotDetected); Rhinovirus/Enterovirus Not Detected (NotDetected)
[2024-10-29 20:47] LABS: Influenza AH1, 2009 Detected (NotDetected)
== END 2024-10-29 23:59 | disposition home or self-care (01) ==
LOC: LAB.DROPOF 10-30 13:02
PROVIDERS: PCP Nurse Practitioner Family; Visit Provider Nurse Practitioner Family
DX: R05.9 Cough, unspecified (principal); R09.89 Other specified symptoms and signs involving the circulatory and respiratory systems; R11.0 Nausea; R42 Dizziness and giddiness
CPT/HCPCS: 87633

== ENCOUNTER 2024-12-02 14:30 | Outpatient (CLI) | payer MEDICAID, SELFPAY ==
[2024-12-02 21:34] LABS: Albumin Level 4.8 g/dl (3.5-5.0); Anion Gap 12.5 mEq/L (5-15); Blood Urea Nitrogen 14 mg/dl (7-17); Calcium 9.5 mg/dl (8.4-10.2); Carbon Dioxide 24 mmol/L (22.0-30.0); Chloride 106 mmol/L (98-107); Estimated Glomerular Filt Rate 119 ml/min (>60); GFR (African American) 144 ML/MIN (>60); Glucose 82 mg/dl (74-100); Phosphorous 3.7 mg/dl (2.5-4.5); Potassium 4.5 mmoL/L (3.5-5.1); Sodium 138 mmol/L (136-145)
[2024-12-02 21:50] LABS: T4 (Thyroxine) 8.5 ug/dl (5.53-11.0)
[2024-12-02 22:03] LABS: Thyroid Stimulating Hormone 1.83 uIU/mL (0.465-4.68)
[2024-12-03 00:33] LABS: Free T4 (Free Thyroxine) 1.24 ng/dl (0.78-2.19)
[2024-12-04 08:17] LABS: FSH 5.6 mIU/mL (.); LH 11.5 mIU/mL (.); Progesterone 10.5 ng/mL (.); Prolactin 8.4 ng/mL (4.8-33.4); Triiodothyronine (T3) Free 3.2 pg/mL (2.0-4.4)
[2024-12-09 15:31] LABS: Free Testosterone (Direct) 0.8 pg/mL (0.0-4.2); Testosterone, Total, LC/MS 31.5 ng/dL (10.0-55.0)
== END 2024-12-02 23:59 | disposition home or self-care (01) ==
LOC: LAB.DROPOF 12-03 09:06
PROVIDERS: PCP Nurse Practitioner Family; Visit Provider Nurse Practitioner Family
DX: N64.3 Galactorrhea not associated with childbirth (principal); E04.1 Nontoxic single thyroid nodule
CPT/HCPCS: 80069; 82670; 83001; 83002; 84144; 84146; 84402; 84403; 84436; 84439; 84443; 84481

== ENCOUNTER 2024-12-12 08:53 | Outpatient (CLI) | payer MEDICAID, SELFPAY ==
--- NOTE | 2024-12-12 08:45 | US_ITS ---
PROCEDURE INFORMATION: Exam: US Right Breast, Complete US Left Breast, Complete Exam date and time: 12/12/2024 9:23 AM Age: 29 years old Clinical indication: Nipple discharge. TECHNIQUE: Imaging protocol: Complete ultrasound of all four quadrants of the right breast and the retroareolar regions, including ultrasound of the axilla when performed. Complete ultrasound of all four quadrants of the left breast and the retroareolar regions, including ultrasound of the axilla when performed. COMPARISON: No relevant prior studies available. FINDINGS: ULTRASOUND: Breast ultrasound findings: Right breast ultrasound: No solid or cystic lesions. No abnormal shadowing, distortion or skin thickening. No abnormal lymph nodes seen in the axilla. Left breast ultrasound: No solid or cystic lesions. No abnormal shadowing, distortion or skin thickening. No abnormal lymph nodes seen in the axilla. IMPRESSION: No sonographic finding to explain the patient's nipple discharge. Recommend clinical follow-up. ASSESSMENT: BI-RADS Category 1: Negative.
== END 2024-12-12 23:59 | disposition home or self-care (01) ==
LOC: RAD 08:54
PROVIDERS: PCP Orthopaedic Surgery; Visit Provider Nurse Practitioner Family
DX: N64.3 Galactorrhea not associated with childbirth (principal)
CPT/HCPCS: 76641

== ENCOUNTER 2025-01-08 15:28 | Outpatient (CLI) | payer MEDICAID, SELFPAY ==
[2025-01-08 16:42] LABS: Coronavirus 19, PCR Not Detected (NotDetected); Human Rhinovirus Not Detected (NotDetected); Influenza A, PCR Not Detected (NotDetected); Influenza B, PCR Not Detected (NotDetected); Respiratory Syncytial Virus Not Detected (NotDetected)
== END 2025-01-08 23:59 | disposition home or self-care (01) ==
LOC: LAB.DROPOF 01-09 10:52
PROVIDERS: PCP Internal Medicine; Visit Provider Internal Medicine
DX: R68.89 Other general symptoms and signs (principal)
CPT/HCPCS: 87631

== ENCOUNTER 2025-05-04 13:47 | Outpatient (CLI) | payer MEDICAID, SELFPAY ==
--- OUTSIDE RECORDS SUMMARY | 2020-08-20 13:44 | XMS_ITS | Encounter Summary ---
Author Organization [facility] Address [address] [place] [id number] Care Team Providers Care Continuous Mining Machine Coal Miner Name Role Phone Provider, No Known Primary Care Provider Unavail able Reason for Referral * Diagnostic Imaging (Routine) - Closed Specialty Diagnoses / Procedures Referred By Contac t Referred To Contact Radiology Diagnoses Threatened Procedures US Ob Transvaginal Scooter Murillo MD [address] [place] [address] Phone: tel: fax: [facility] Phone: tel: Referral ID Status Reason Start Date Expiration Date Visits Re quested Visits Authorized [id number] Closed 08/20/2020 08/20/2021 1 1 Reason for Visit * Diagnostic Imaging (Routine) - Closed Specialty Diagnoses / Procedures Referred By Contac t Referred To Contact Radiology Diagnoses Threatened Procedures US Ob Transvaginal Scooter Murillo MD [address] [place] [address] Phone: tel: fax: [facility] Phone: tel: Referral ID Status Reason Start Date Expiration Date Visits Re quested Visits Authorized [id number] Closed 08/20/2020 08/20/2021 1 1 Encounter Details Date Type Department Care Team (Latest Contact Info) Description 08/20/2020 12:44 PM EST Hospital Encounter [facility] [phone] Threatened Social History Tobacco Use Types Packs/Day Years Used Date Smoking Tobacco: Never Smokeless Tobacco: Never Alcohol Use Standard Drinks/Week Comments Not Currently 0 (1 standard drink = 0.6 oz pur e alcohol) SOCIALLY [place] Depression Scale Answer Date Recorded [place] Depression Scale Total 3 04/15/2021 The thought [...] 5:46 PM EST PAT NAME: CAMMY BRICENO [facility] REC#: [id number] DA: [id number] PAT GEND: F PAT TYPE: O EXAM PAMELA: [id number] REF PHYS SCOOTER MURILLO Addendum ========= Notice [...] Recommendation Repeat scan in ~ 1 week Spare Person: Riana Arredondo RDMS Physician: Scooter Murillo MD Electronically signed by: Scooter Murillo MD at: 17:46 Procedure Note Scotoer Murillo MD - 08/25/2020 PAT NAME: CAMMY BRICENO [facility] REC#: [id number] DA: [id number] PAT GEND: F PAT TYPE: O EXAM PAMELA: [id number] REF PHYS SCOOTER MURILLO Addendum ========= Notice [...] GA5 w + 6 d Assigned JOHN:04/16/2021 [id number] d Assessment Gestational sac:visualized GS11.4 mm 5w [...] Recommendation Repeat scan in ~ 1 week Spare Person: Riana Arredondo RDSC Physician: Scooter Murillo MD Electronically signed by: Scooter Murillo MD at: 17:46 us Scooter Murillo MD [facility] US ORDERABLES Edited R esult - Final documented in this encounter Visit Diagnoses Diagnosis Threatened documented in this encounter Additional Health Concerns Infection Onset Date Last Indicated Resolved Time COVID Screen (preop/placement) 04/13/2021 04/13/2021 04/13/2021 6:44 PM EDT documented as of this encounter Care Teams Continuous Mining Machine Coal Miner Relationship Specialty Start Date End Date Provider, [place] [address] PCP - General 03/28/18 03/21/21 documented as of this encounter
--- OUTSIDE RECORDS SUMMARY | 2020-08-26 14:45 | XMS_ITS | Encounter Summary ---
[facility] Address [address] [place] [id number] Care Team Providers Care Color Expert Name Role Phone Provider, No Known Primary Care Provider Unavail able Reason for Referral * Diagnostic Imaging (Routine) - Closed Specialty Diagnoses / Procedures Referred By Contac t Referred To Contact Radiology Diagnoses Threatened miscarriage [place] [address] [place] [address] Phone: tel: fax: [facility] Phone: tel: Referral ID Status Reason Start Date Expiration Date Visits Re quested Visits Authorized [id number] Closed 08/20/2020 08/20/2021 1 1 Reason for Visit * Diagnostic Imaging (Routine) - Closed Specialty Diagnoses / Procedures Referred By Contac t Referred To Contact Radiology Diagnoses Threatened miscarriage Procedures US Ob Transvaginal Scooter Murillo MD [address] [place] [address] Phone: tel: fax: [facility] Phone: tel: Referral ID Status Reason Start Date Expiration Date Visits Re quested Visits Authorized [id number] Closed 08/20/2020 08/20/2021 1 1 Encounter Details Date Type Department Care Team (Latest Contact Info) Description 08/26/2020 1:45 PM EST Hospital Encounter [facility] [phone] Threatened miscarriage Social History Tobacco Use Types Packs/Day Years Used Date Smoking Tobacco: Never Smokeless Tobacco: Never Alcohol Use Standard Drinks/Week Comments Not Currently 0 (1 standard drink = 0.6 oz pur e alcohol) SOCIALLY [place] Depression Scale Answer Date Recorded [place] Depression Scale Total 3 04/15/2021 The thought [...] 5:23 PM EST PAT NAME: CAMMY BRICENO [facility] REC#: [id number] DA: [id number] PAT GEND: F PAT TYPE: O EXAM PAMELA: [id number] REF PHYS SCOOTER MURILLO Aquaculturist Comments Only one GS is seen today, [...] still present Recommendation Follow-up as clinically indicated. Aquaculturist: Karolina Adorno RDSD Physician: Scooter Murillo MD Electronically signed by: Scooter Murillo MD at: 17:23 Procedure Note Scooter Murillo MD - 08/27/2020 PAT NAME: CAMMY BRICENO [facility] REC#: [id number] DA: [id number] PAT GEND: F PAT TYPE: O EXAM PAMELA: [id number] REF PHYS SCOOTER MURILLO Aquaculturist Comments Only one GS is seen today, [...] GA5 w + 6 d Assigned JOHN:04/22/2021 [id number] d Assessment Gestational sac:visualized Location:intrauterine Yolk sac:visualized Embryo:visualized CRL4.4 mm 6w 1d 71% Hadlock Cardiac activity:present [id number] bpm Placenta:Too early to evaluate Maternal Structures Uterus / Cervix Uterus:Visualized Cervix:Visualized Ovaries / Tubes / Adnexa Rt ovary:Visualized Rt ovarian corpus luteum:a well circumscribed unilocular cyst withperipheral Doppler flow is present - typical of a corpus luteum Lt ovary:Visualized Impression ========= Single viable intrauterine with normal cardiac activity The WILDER vs vanishing twin is still present Recommendation Follow-up as clinically indicated. Aquaculturist: Karolina Adorno RDMS Physician: Scooter Murillo MD [...] documented as of this encounter Care Teams Color Expert Relationship Specialty Start Date End Date Provider, No Known [facility] [place] [address] PCP - General 03/28/18 03/21/21 documented as of this encounter
--- OUTSIDE RECORDS SUMMARY | 2020-09-13 15:00 | XMS_ITS | Encounter Summary ---
[facility] Organization [facility] Address [address] [place] [address] Care Team Providers Care Powder Coater Name Role Phone Provider, No Known Primary Care Provider Unavail able Reason for Referral * Diagnostic Imaging (Routine) - Closed Specialty Diagnoses / Procedures Referred By Contac t Referred To Contact Radiology Diagnoses Threatened miscarriage Procedures [place] [address] [place] [address] Phone: tel: fax: [facility] Phone: tel: Referral ID Status Reason Start Date Expiration Date Visits Re quested Visits Authorized [id number] Closed 08/26/2020 08/26/2021 1 1 Reason for Visit * Diagnostic Imaging (Routine) - Closed Specialty Diagnoses / Procedures Referred By Contac t Referred To Contact Radiology Diagnoses Threatened miscarriage Procedures US Ob Transvaginal Scooter Murillo MD [address] [place] [address] Phone: tel: fax: [facility] Phone: tel: Referral ID Status Reason Start Date Expiration Date Visits Re quested Visits Authorized [id number] Closed 08/26/2020 08/26/2021 1 1 Encounter Details Date Type Department Care Team (Latest Contact Info) Description 09/13/2020 2:00 PM EST Hospital Encounter [facility] [phone] Threatened miscarriage Social History Tobacco Use Types Packs/Day Years Used Date Smoking Tobacco: Never Smokeless Tobacco: Never Alcohol Use Standard Drinks/Week Comments Not Currently 0 (1 standard drink = 0.6 oz pur e alcohol) SOCIALLY [place] Depression Scale Answer Date Recorded [place] Depression Scale Total 3 04/15/2021 The thought [...] 8:39 PM EST PAT NAME: CAMMY BRICENO [facility] REC#: [id number] DA: [id number] PAT GEND: F PAT TYPE: O EXAM PAMELA: [id number] REF PHYS SCOOTER MURILLO Indication ======== Dating, Viability Comparison Studies There [...] clinical dates Recommendation Follow-up as clinically indicated. Passenger Attendant: Karolina Adorno RDMS Physician: Radha Watson DO Electronically signed by: Radha Watson DO at: 20:39 Procedure Note Radha Watson DO - 09/13/2020 PAT NAME: CAMMY BRICENO [facility] REC#: [id number] DA: 1995 PAT GEND: F PAT TYPE: O EXAM PAMELA: [id number] REF PHYS SCOOTER MURILLO Indication ======== Dating, Viability Comparison Studies There [...] GA8 w + 3 d Assigned JOHN:04/22/2021 [id number] d Assessment Gestational sac:visualized Location:intrauterine Yolk sac:visualized Embryo:visualized CRL22.8 mm 9w 0d >99% [place] Cardiac activity:present SXZ173 bpm Placenta:Too early to evaluate Maternal Structures Uterus / Cervix Uterus:Visualized Cervix:Visualized Ovaries / Tubes / Adnexa Rt ovary:Visualized Lt ovary:Visualized Impression ========= Single viable intrauterine with normal cardiac activity andbiometry consistent with clinical dates Recommendation Follow-up as clinically indicated. Passenger Attendant: Karolina Adorno RDMS Physician: Radha Watson DO Electronically signed by: Radha Watson DO at: 20:39 us Scooter Murillo MD [facility] US ORDERABLES Final Re sult documented in this encounter Visit Diagnoses Diagnosis Threatened miscarriage Threatened , unspecified as to episode of care documented in this encounter Additional Health Concerns Infection Onset Date Last Indicated Resolved Time COVID Screen (preop/placement) 04/13/2021 04/13/2021 04/13/2021 6:44 PM EDT documented as of this encounter Care Teams Powder Coater Relationship Specialty Start Date End Date Provider, [place] [address] PCP - General 03/28/18 03/21/21 documented as of this encounter
--- OUTSIDE RECORDS SUMMARY | 2020-11-10 14:28 | XMS_ITS | Encounter Summary ---
Author Organization [facility] Address [address] [place] [address] Care Team Providers Care Deburring And Tooling Machine Operator Name Role Phone Provider, No Known Primary Care Provider Unavail able Reason for Referral * Diagnostic Imaging (Routine) - Closed Specialty Diagnoses / Procedures Referred By Contac t Referred To Contact Radiology Diagnoses care, subsequent in first trimester Procedures US OB Gender Scan Shamir Olmos MD [address] [place] [address] Phone: tel: fax: [facility] Phone: tel: Referral ID Status Reason Start Date Expiration Date Visits Re quested Visits Authorized [id number] Closed 10/13/2020 10/13/2021 1 1 Reason for Visit * Diagnostic Imaging (Routine) - Closed Specialty Diagnoses / Procedures Referred By Contac t Referred To Contact Radiology Diagnoses care, subsequent in first trimester Procedures US OB Gender Scan Shamir Olmos MD [address] [place] [address] Phone: tel: fax: [facility] Phone: tel: Referral ID Status Reason Start Date Expiration Date Visits Re quested Visits Authorized [id number] Closed 10/13/2020 10/13/2021 1 1 Encounter Details Date Type Department Care Team (Latest Contact Info) Description 11/10/2020 1:28 PM EST Hospital Encounter [facility] [phone] care, subsequent in first trimester Social History Tobacco Use Types Packs/Day Years Used Date Smoking Tobacco: Never Smokeless Tobacco: Never Alcohol Use Standard Drinks/Week Comments Not Currently 0 (1 standard drink = 0.6 oz pur e alcohol) SOCIALLY [place] Depression Scale Answer Date Recorded [place] Depression Scale Total 3 04/15/2021 The thought [...] documented as of this encounter Care Teams Deburring And Tooling Machine Operator Relationship Specialty Start Date End Date Provider, No Known [facility] [place] [address] PCP - General 03/28/18 03/21/21 documented as of this encounter
--- OUTSIDE RECORDS SUMMARY | 2021-04-14 16:00 | XMS_ITS | Encounter Summary ---
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 Phone System, Provider Not In Primary Care Provider Un available Reason for Referral * Diagnostic Imaging (Routine) - Closed Specialty Diagnoses / Procedures Referred By Contac t Referred To Contact Radiology Diagnoses Decreased movements in third trimester, single or unspecified fetus Procedures US Biophysical Profile;With Non-Stress Testing Sonia Combs DO [facility] Phone: tel: Referral ID Status Reason Start Date Expiration Date Visits Re quested Visits Authorized [id number] Closed 04/14/2021 04/14/2022 1 1 Reason for Visit * Diagnostic Imaging (Routine) - Closed Specialty Diagnoses / Procedures Referred By Jai higgins Referred To Contact Radiology Diagnoses Decreased movements in third trimester, single or unspecified fetus Procedures US Biophysical Profile;With Non-Stress Testing Sonia Combs DO [facility] Phone: tel: Referral ID Status Reason Start Date Expiration Date Visits Re quested Visits Authorized [id number] Closed 04/14/2021 04/14/2022 1 1 Encounter Details Date Type Department Care Team (Latest Contact Info) Description 04/14/2021 4:00 PM EDT Hospital Encounter [facility] [phone] Decreased movements in third trimester, single or unspecified fetus Social History Tobacco Use Types Packs/Day Years Used Date Smoking Tobacco: Never Smokeless Tobacco: Never Alcohol Use Standard Drinks/Week Comments Not Currently 0 (1 standard drink = 0.6 oz pur e alcohol) SOCIALLY [place] Depression Scale Answer Date Recorded [place] Depression Scale Total 3 04/15/2021 The thought [...] 11:34 PM EDT PAT NAME: CAMMY MORENO [facility] REC#: [id number] DA: 1995 PAT GEND: F PAT TYPE: O EXAM PAMELA: [id number] REF PHYS SONIA COMBS Indication ======== Decreased [...] normal BPP Recommendation NST is recommended today. Temple Meat Cutter: Riana Arredondo RDMS Physician: Shamir Olmos MD Electronically signed by: Shamir Olmos MD at: 23:34 Procedure Note Shamir Olmos MD - 04/14/2021 PAT NAME: CAMMY MORENO [facility] REC#: [id number] DA: [id number] PAT GEND: F PAT TYPE: O EXAM PAMELA: [id number] REF PHYS SONIA COMBS Indication ======== Decreased movements in third trimester, single or unspecified fetus[O36.8130 (ICD-10-CM)] Comparison Studies There are no relevant prior studies to which this study is beingcompared Method ======= Voluson E6, Transabdominal ultrasound examination. View: Sufficient ========= Echevarria . Number of fetuses: 1 Dating ====== LMP on:07/16/2020 GA by [email or web address] w + 6 d JOHN by LMP:04/22/2021 GA by prior [email or web address] w + 6 d JOHN by prior [...] normal BPP Recommendation NST is recommended today. 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
--- OUTSIDE RECORDS SUMMARY | 2025-05-04 13:50 | XMS_ITS | Encounter Summary ---
[facility] Address [address] [place] [address] Care Team Providers Care Steel Wheel Engraver Name Role Phone System, Provider Not In Primary Care Provider Un available Encounter Details Date Type Department Care Team (Late st Contact Info) Description 10/15/2013 Conversion Encounter [facility] HISTORICAL CONV [address] [place] [address] Interface, See Report Social History Tobacco Use Types Packs/Day Years Used Date Smoking Tobacco: Never Assessed Comments Unknown Sex and Gender Information Value Date Recorded Sex Assigned at Not on file Legal Sex Female 10:55 AM EDT Gender Identity Not on file Sexual Orientation Not on file documented as of this encounter ED Notes * Interface, See Report - 10/15/2013 7:46 PM EST Clinical Report - Physicians/Mid Levels [facility] Emergency Department [address] [place], [place] [id number] 10/15/2013 Patient: CAMMY COOPER Sex: F : 1995 Age: 18y Time Seen: 21:54 Oct 15 2013. Arrived- By private vehicle. Historian- patient and family. HISTORY OF PRESENT ILLNESS Chief Complaint: SKIN RASH. This started 1 months ago and is still present and worsening. It was gradual in onset and has been constant. It is described as itchy. It has been generalized in location. The patient had a recent insect bite (a houseguest had scabies). Similar symptoms previously: None. Recent medical care: The patient was seen recently by a health care provider (PCP gave her a sample of permethrin which helped but then returned.). REVIEW OF SYSTEMS No chills, fever, nasal congestion, runny nose or sore throat. No abdominal pain or urinary problems. She has had skin lesion; and rash. All systems otherwise negative, except as recorded above. PAST HISTORY denies any chronic medical problems. SOCIAL HISTORY Nonsmoker. No alcohol use or drug use. ADDITIONAL NOTES The nursing notes have been reviewed. PHYSICAL EXAM Vital Signs: Have been reviewed. Appearance: Alert. Oriented X3. No acute distress. Eyes: Pupils equal, round and reactive to light. CVS: Normal heart rate and rhythm. Heart sounds normal. No cardiac murmur. Respiratory: No respiratory distress. Breath sounds normal. No wheezes, rhonchi or rales. Skin: (small macules in groin, low abd, left hand, thigh, upper back). Extremities: Normal external inspection. Extremities nontender. Neuro: Oriented X 3. No motor deficit. PROGRESS AND PROCEDURES Course of Care: 00:23 Oct 16 2013. spoke w them about need to wash all clothes and fomites in hot water, treat all children in the house. Disposition: Discharged. CLINICAL IMPRESSION Scabies. INSTRUCTIONS Warnings: GENERAL WARNINGS: Return or contact your physician immediately if your condition worsens or changes unexpectedly, if not improving as expected, or if other problems arise. Prescription Medications: Elimite 5% Cream: Shower & dry, then apply cream to whole body from neck down, leave on 8 hours then shower & launder clothes & bedclothes in hot water. Dispense sixty (60) gm. No refill. Generic substitute OK. Follow-up: Follow up with your doctor. (Electronically signed by Rio Manriquez M.D. 10/16/2013 0:24) documented in this encounter Plan of Treatment Not on file documented as of this encounter Visit Diagnoses Not on filedocumented in this encounter Additional Health Concerns Infection Onset Date Last Indicated Resolved Time COVID Screen (preop/placement) 04/13/2021 04/13/2021 04/13/2021 6:44 PM EDT documented as of this encounter Care Teams Steel Wheel Engraver Relationship Specialty Start Date End Date System, [place] [address] PCP - General 03/22/21 documented as of this encounter
--- OUTSIDE RECORDS SUMMARY | 2025-05-04 13:50 | XMS_ITS | Clinical Summary ---
Author Organization [facility] Address [address] [place] [address] Care Team Providers Care Supervisor Cloth Winding Name Role Phone System, Provider Not In Primary Care Provider Un available Allergies Active Allergy Reactions Criticality Noted Date Comments Erythromycin Hives,Swelling Medium 10/18/2017 Medications pantoprazole (PROTONIX) 40 MG EC tablet Take 1 tablet by mouth Daily. 04/04/2023 Active promethazine (PHENERGAN) 25 MG tablet Take 1 tablet by mouth Every 6 (Six) Hours As Needed for Nausea or Vomiting. Active Active Problems Problem Noted Date Diagnosed Date arrhythmia affecting , antepartum 04/25/2023 Supervision of normal intrau terine in multigravida 01/04/2023 Overview (01/04/2023): gender: classes discussed: Circumcision (y / n / na): Asbestos Pipe Supervisor: Baby's name: Breast/bottle feeding: Placental location: Postdates discussed: Tdap discussed: Tdap vaccine received: Flu vaccine discussed: Flu vaccine received: Covid vaccine discussed: Covid vaccine received: Annual EVALUATOR TRANSFER STUDENTS exam w/o problems 09/14/2018 Overview (06/01/2021): SCREENING TESTS Year 2013 2014 2016 2016 2017 2018 2019 2020 2021 2022 2023 2024 2025 2026 2027 2028 2029 2030 2031 2032 Age PAP 6 2-ASCUS 12 - nonDx 9 HPV high risk 2- (+) non 16/18 12 MIKI [Birads] SHAHIDA (5 year) Tyrlucero Ogdenick (lifetime) Colonoscopy DEXA [T-score] Frax [hip/any] Lipids [LDL / HDL / TG] Vitamin D Ovarian Screen Enter the month test was performed. If month not known, enter X' Black numbers = normal results Red numbers = abnormal results Black X = patient reported normal Red X - patient reported abnormal Referred by: Profession: Kevon Other info: Resolved Problems Problem Noted Date Diagnosed Date Resolved Date care following NS VD on 04/15/21 - Maylah 04/15/2021 05/30/2021 Decreased movement 04/14/2021 Decreased movement aff ecting management of mother, antepartum 03/22/2021 03/24/2021 Maternal anemia in , antepartum 02/04/2021 04/14/2021 Family history of CHD - sist er wtih TOF (normal echo @ 20 weeks and again at 32 weeks) 09/13/2020 04/14/2021 care, subsequent pr egnancy in third trimester 08/29/2020 04/15/2021 Overview (03/02/2021): gender: female classes discussed: yes Circumcision (y / n / na): na Asbestos Pipe Supervisor: Service Baby's name: Kev Breast/bottle feeding: breast Placental location: posterior Postdates discussed: Tdap discussed: no Tdap vaccine received: 11/03/2019 Flu vaccine discussed: 10/13/20 Flu vaccine received: n/a Encounter for annual routine gynecological examination 08/28/2018 09/14/2018 DUB (dysfunctional uterine bleeding) 08/28/2018 04/01/2019 anemia 06/16/2018 09/14/2018 care following 06/15/18 06/15/2018 09/14/2018 Cholestasis during 06/14/2018 06/15/2018 Anemia complicating pregnanc y, third trimester 06/14/2018 06/15/2018 Polyhydramnios in third trimester 06/14/2018 06/15/2018 False labor after 37 weeks o f gestation without delivery 06/08/2018 06/14/2018 Epistaxis 05/21/2018 06/14/2018 37 weeks gestation of 02/26/2018 06/14/2018 Family history of congenital heart defect 02/26/2018 06/14/2018 38 weeks gestation of 02/12/2018 06/15/2018 Immunizations Immunization Administration Dates Next Due DTP / HiB 02/11/1997 FluMist 2-49yrs (Nasal) 07/01/2013,06/25/2012 HPV Quadrivalent 01/29/2008,11/29/2007 Hep A, 2 Dose 11/29/2007 MMR 07/28/1997 Meningococcal MCV4P (Menactra) 09/22/2014 OPV 02/11/1997 Tdap 11/03/2019,11/29/2007 Family History Medical History Relation Name Comments No Known Problems Father Ovarian cancer Maternal Grandmother No Known Problems Mother Breast cancer Paternal Grandmother Colon cancer Paternal Grandmother Heart defect Sister tetrtology of fallot Relation Name Status Comments Father Alive Maternal Grandmother Mother Alive Paternal Grandmother Sister tetrtology of fallot Social History Tobacco Use Types Packs/Day Years Used Date Smoking Tobacco: Never Smokeless Tobacco: Never Tobacco Cessation:Counseling Given: Not Answered Alcohol Use Standard Drinks/Week Comments Not Currently 0 (1 standard drink = 0.6 oz pur e alcohol) SOCIALLY [place] Depression Scale Answer Date Recorded [place] Depression Scale Total 3 04/15/2021 The thought [...] file Not on file Not on file Last Filed Vital Signs Vital Sign Reading Time Taken Comments Blood Pressure 97/60 04/25/2023 9:20 AM EDT Pulse 68 04/16/2021 7:00 AM EDT Temperature 36.7 C (98.1 F) 04/16/2021 7:00 AM EDT Respiratory Rate 14 05/30/2021 11:31 AM EDT Oxygen Saturation 98% 04/15/2021 1:35 AM EDT Inhaled Oxygen Concentration - - Weight 61.8 kg (136 lb 3.2 oz) 04/25/2023 9:20 A M EDT Height 157.5 cm (5' 2 ) 04/25/2023 9:22 AM EDT Body Mass Index 24.91 04/25/2023 9:20 AM EDT Plan of Treatment Health Maintenance Due Date Last Done Comments ANNUAL PHYSICAL 02/26/2018 Annual Gynecologic Pelvic and Breast Exam 08/29/2019 08/28/2018 COVID-19 Vaccine (3 - season) 2024 03/22/2022, 02/20/2022 INFLUENZA VACCINE 06/17/2025 07/01/2013, 06/25/2012 TDAP/TD VACCINES (3 - Td or Tdap) 11/03/2029 11/03/2019, 11/29/2007 HEPATITIS C SCREENING Completed 09/13/2020 CHLAMYDIA SCREENING Discontinued 11/30/2020, 09/13/2020, 11/27/2017 Pneumococcal Vaccine 0-49 Aged Out No longer eligible based on patient's age to complete this topic Procedures Procedure Name Priority Date/Time Associated Diagnosis Comments DAYANA ALBICANS, GARDNERELLA VAGINALIS, TRICHOMONAS VAGINALIS,DNA Routine 11/30/2020 Vulvar edema Vulvar itching Vaginal yeast infection Vulvar burning HEPATITIS C ANTIBODY Routine 09/13/2020 4:50 PM EST care, subsequent in first trimester from Last 3 Months or Most Recently Relevant to Health Maintenance Results * Gardnerella vaginalis, Trichomonas vaginalis, Dayana albicans, DNA - , Vagina (11/30/2020) Specimen from vagina / Unknown Sonam Thompson MD MICROBIOLOGY - GENERAL ORDER PERLITA Final Result [facility]
[address] [place] [address], [place] [phone] * Hepatitis C Antibody (09/13/2020 4:50 PM EST) Hepatitis C Ab Non-Reacti ve Non-Reacti ve 09/14/2020 12:17 AM EST [facility] Blood Venipuncture / Unknown 09/13/2020 4:50 PM EST 09/13/2020 4:50 PM EST Narrative [facility] - 09/14/2020 12:17 AM EST Results may be falsely decreased if patient taking Biotin. Shamir Olmos MD LAB BLOOD ORDERABLES Final Result Performing Organization Address City/[facility]/ZIP Co de Phone Number [facility]
[address] [place] [address], from Last 3 Months or Most Recently Relevant to Health Maintenance Insurance [employer] [facility] [employer] PPO Advance Directives * CPR (Attempt to Resuscitate) (Latest Code Status on File) Date Activated Date Inactivated Comments 04/15/2021 6:15 AM 04/16/2021 6:41 PM Question Answer Comments Code Status (Patient has no pulse and is not breathing): CPR (Attempt to Resuscitate) Medical Interventions (Patie nt has pulse or is breathing): Full * CPR (Attempt to Resuscitate) Date Activated Date Inactivated Comments 04/14/2021 5:11 PM 04/15/2021 6:15 AM Question Answer Comments Code Status (Patient has no pulse and is not breathing): CPR (Attempt to Resuscitate) Medical Interventions (Patie nt has pulse or is breathing): Full * CPR (Attempt to Resuscitate) Date Activated Date Inactivated Comments 06/15/2018 4:25 PM 06/17/2018 1:59 PM Question Answer Comments Code Status (Patient has no pulse and is not breathing): CPR (Attempt to Resuscitate) Medical Interventions (Patie nt has pulse or is breathing): Full * CPR (Attempt to Resuscitate) Date Activated Date Inactivated Comments 06/14/2018 2:48 PM 06/15/2018 4:25 PM Question Answer Comments Code Status (Patient has no pulse and is not breathing): CPR (Attempt to Resuscitate) Medical Interventions (Patie nt has pulse or is breathing): Full Care Teams Supervisor Cloth Winding Relationship Specialty Start Date End Date System, [place] [address] PCP - General 03/22/21
--- OUTSIDE RECORDS SUMMARY | 2025-05-04 13:50 | XMS_ITS | Clinical Summary ---
Author Organization [facility] Address [address] [place] [id number] Phone [email or web address] Care Team Providers Care Cryptanalyst Name Role Phone Provider, No Primary Care Provider Unavailabl e Allergies Active Allergy Reactions Criticality Noted Date Comments Erythromycin Hives,Swelling Medium 06/11/2019 Medications No known medications Active Problems Problem Noted Date Diagnosed Date care, subsequent 08/29/2020 Overview (09/02/2020): gender: classes discussed: Circumcision (y / n / na): Travel Assistant: Baby's name: Breast/bottle feeding: Placental location: Postdates discussed: Tdap discussed: Tdap vaccine received: Flu vaccine discussed: Flu vaccine received: Well woman exam 09/14/2018 Overview (09/02/2020): SCREENING TESTS Year 2013 2014 2016 2016 2017 2018 2019 2020 2021 2022 2023 2024 2025 2026 2027 2028 2029 2030 2031 2032 Age PAP 6 2-ASCUS 12 - nonDx HPV high risk 2- (+) non 16/18 12 MIKI [Birads] SHAHIDA (5 year) Tyrer [place] (lifetime) Colonoscopy DEXA [T-score] Frax [hip/any] Lipids [LDL / HDL / TG] Vitamin D Ovarian Screen Enter the month test was performed. If month not known, enter X' Black numbers = normal results Red numbers = abnormal results Black X = patient reported normal Red X - patient reported abnormal Referred by: Profession: [employer] Other info: Immunizations Immunization Administration Dates Next Due Tdap (ADACEL BOOSTRIX) (CVX-115) 11/03/2019 Social History Tobacco Use Types Packs/Day Years Used Date Smoking Tobacco: Never Smokeless Tobacco: Never Intimate Partner Violence Answer Date R ecorded Insults You Not on file 12/26/2020 Threatens You Not on file 12/26/2020 Screams at You Not on file 12/26/2020 Physically Hurt Not on file 12/26/2020 Intimate Partner Violence Score Not on file 12/26/2020 Depression Answer Date Recorded PHQ Total Score 0 06/27/2022 Stress Answer Date Recorded Stress in your Life 0 10/24/2020 Dealing with Stress Not on file 10/24/2020 Comments No Sex and Gender Information Value Date Recorded Sex Assigned at Not on file Legal Sex Female 1:52 PM 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 Gender Identity Not on file Sexual Orientation Not on file Last Filed Vital Signs Vital Sign Reading Time Taken Comments Blood Pressure 96/66 12/06/2021 4:03 PM EDT Pulse 77 05/04/2022 8:32 PM EDT Temperature 36.6 C (97.8 F) 05/04/2022 8:32 PM EDT Respiratory Rate 14 12/06/2021 4:03 PM EDT Oxygen Saturation 95% 05/04/2022 8:32 PM EDT Inhaled Oxygen Concentration - - Weight 63.9 kg (140 lb 12.8 oz) 08/19/2018 3:12 PM EST Height 161.3 cm (5' 3.5 ) 08/19/2018 3:12 PM EST Body Mass Index 24.55 08/19/2018 3:12 PM EST Plan of Treatment Health Maintenance Due Date Last Done Comments Cervical Cancer Screening Combo 1996 Dental Cleaning/Exam 1996 HPV / Cotest 1996 Pap Testing 1996 HPV Immunization (1 - 2-dose series) 2007 Hepatitis B Immunization (1 of 3 - 19+ 3-dose series) 2015 Covid-19 Immunization (1 - 2 -25 season) 2024 Influenza Immunization (#1) 2025 Tetanus Diphtheria and Pertu ssis Immunization (2 - Td or Tdap) 11/03/2029 11/03/2019 HIB Immunization Aged Out No longer e ligible based on patient's age to complete this topic Hepatitis A Immunization Aged Out No longer eligible based on patient's age to complete this topic Pneumococcal: Ped (0 to 5 Yr s) and At-Risk Member (6 to 64 Yrs) Aged Out No longer e ligible based on patient's age to complete this topic Polio Immunization Aged Out No longer eligible based on patient's age to complete this topic Varicella Immunization Aged Out No lo nger eligible based on patient's age to complete this topic Insurance OPT OUT NO COPAY NB Care Teams Cryptanalyst Relationship Specialty Start Date End Date Provider, [place] [address] PCP - General Program Director/Music Director 10/27/19
--- NOTE | 2025-05-04 14:00 | US_ITS ---
FINAL REPORT TECHNIQUE: Ultrasound images of the thyroid were obtained. CLINICAL HISTORY: 6 month f/u COMPARISON: 10/22/2024 report FINDINGS: The right lobe of the thyroid measures 5.0 x 1.4 x 1.2 cm. It is normal in echogenicity. The left lobe of the thyroid measures 4.9 x 1.3 x 1.6 cm. It is normal in echogenicity. There is a cystic lesion in the lower pole of the left lobe measuring 1.3 x 1.0 cm, TR 1. IMPRESSION: TR 1 nodule in the left lobe. No follow-up needed per Fleischner criteria. Reviewed, Interpreted and Dictated by Aguilar Xiong MD Transcribed by Ofelia Isaac Authenticated and [facility]
== END 2025-05-04 23:59 | disposition home or self-care (01) ==
LOC: RAD 13:48
PROVIDERS: PCP Nurse Practitioner Family; Visit Provider Nurse Practitioner
DX: E04.1 Nontoxic single thyroid nodule (principal)
CPT/HCPCS: 76536

== ENCOUNTER 2025-08-10 16:10 | Outpatient (CLI) | payer MEDICAID, SELFPAY ==
--- OUTSIDE RECORDS SUMMARY | 2020-08-20 12:44 | XMS_ITS | Encounter Summary ---
[facility] Address [address] [place] [id number] Care Team Providers Care Smeller Name Role Phone Provider, No Known Primary Care Provider Unavail able Reason for Referral * Diagnostic Imaging (Routine) - Closed Specialty Diagnoses / Procedures Referred By Contac t Referred To Contact Radiology Diagnoses Threatened Procedures US Ob Transvaginal Scooter Murillo MD [address] [place] [address] Phone: tel: fax: [address] [address] Phone: tel: fax: Referral ID Status Reason Start Date Expiration Date Visits Re quested Visits Authorized [id number] Closed 08/20/2020 08/20/2021 1 1 Reason for Visit * Diagnostic Imaging (Routine) - Closed Specialty Diagnoses / Procedures Referred By Contac t Referred To Contact Radiology Diagnoses Threatened Procedures US Ob Transvaginal cSooter Murillo MD [address] [place] [address] Phone: tel: fax: [address] [address] Phone: tel: fax: Referral ID Status Reason Start Date Expiration Date Visits Re quested Visits Authorized [id number] Closed 08/20/2020 08/20/2021 1 1 Encounter Details Date Type Department Care Team (Latest Contact Info) Description 08/20/2020 12:44 PM EST Hospital Encounter [facility] [address] [place] [address] Threatened Social History Tobacco Use Types Packs/Day Years Used Date Smoking Tobacco: Never Smokeless Tobacco: Never Alcohol Use Standard Drinks/Week Comments Not Currently 0 (1 standard drink = 0.6 oz pur e alcohol) SOCIALLY [place] Depression Scale Answer Date Recorded [place] Depression Scale Total 3 04/15/2021 The thought [...] 5:46 PM EST PAT NAME: CAMMY BRICENO [facility] REC#: [id number] DA: [id number] PAT GEND: F PAT TYPE: O EXAM PAMELA: [id number] REF PHYS SCOOTER MURILLO Addendum ========= Notice [...] Recommendation Repeat scan in ~ 1 week Mechanical Engineering Technologist: Riana Arredondo RDMS Physician: Scooter Murillo MD Electronically signed by: Scooter Murillo MD at: 17:46 Procedure Note Scooter Murillo MD - 08/25/2020 PAT NAME: CAMMY BRICENO [facility] REC#: [id number] DA: [id number] PAT GEND: F PAT TYPE: O EXAM PAMELA: [id number] REF PHYS SCOOTER MURILLO Addendum ========= Notice [...] GA5 w + 6 d Assigned JOHN:04/16/2021 [id number] d Assessment Gestational sac:visualized GS11.4 mm 5w [...] Recommendation Repeat scan in ~ 1 week Mechanical Engineering Technologist: Riana Arredondo RDMS Physician: Scooter Murillo MD Electronically signed by: Scooter Murillo MD at: 17:46 us Scooter Murillo MD [facility] [place] Edited R esult - Final documented in this encounter Visit Diagnoses Diagnosis Threatened documented in this encounter Additional Health Concerns Infection Onset Date Last Indicated Resolved Time COVID Screen (preop/placement) 04/13/2021 04/13/2021 04/13/2021 6:44 PM EDT documented as of this encounter Care Teams Smeller Relationship Specialty Start Date End Date Provider, No Known [facility] [place] [address] PCP - General 03/28/18 03/21/21 documented as of this encounter
--- OUTSIDE RECORDS SUMMARY | 2020-08-26 13:45 | XMS_ITS | Encounter Summary ---
[facility] Address [address] [place] [id number] Care Team Providers Care Coke Burner Name Role Phone Provider, No Known Primary Care Provider Unavail able Reason for Referral * Diagnostic Imaging (Routine) - Closed Specialty Diagnoses / Procedures Referred By Sandraac t Referred To Contact Radiology Diagnoses Threatened miscarriage Procedures US Ob Transvaginal Scooter Murillo MD [address] [place] [address] Phone: tel: fax: [address] [address] Phone: tel: fax: Referral ID Status Reason Start Date Expiration Date Visits Re quested Visits Authorized [id number] Closed 08/20/2020 08/20/2021 1 1 Reason for Visit * Diagnostic Imaging (Routine) - Closed Specialty Diagnoses / Procedures Referred By Contelsa t Referred To Contact Radiology Diagnoses Threatened miscarriage Procedures US Ob Transvaginal Scooter Murillo MD [address] [place] [address] Phone: tel: fax: [address] [address] Phone: tel: fax: Referral ID Status Reason Start Date Expiration Date Visits Re quested Visits Authorized [id number] Closed 08/20/2020 08/20/2021 1 1 Encounter Details Date Type Department Care Team (Latest Contact Info) Description 08/26/2020 1:45 PM EST Hospital Encounter [facility] [address] [place] [address] Threatened miscarriage Social History Tobacco Use Types Packs/Day Years Used Date Smoking Tobacco: Never Smokeless Tobacco: Never Alcohol Use Standard Drinks/Week Comments Not Currently 0 (1 standard drink = 0.6 oz pur e alcohol) SOCIALLY [place] Depression Scale Answer Date Recorded [place] Depression Scale Total 3 04/15/2021 The thought [...] 5:23 PM EST PAT NAME: CAMMY BRICENO [facility] REC#: [id number] DA: 1995 PAT GEND: F PAT TYPE: O EXAM PAMELA: [id number] REF PHYS CHIDI SCOOTER Stockholder Comments Only one GS is seen today, [...] still present Recommendation Follow-up as clinically indicated. Stockholder: Karolina Adorno RDMS Physician: Scooter Murillo MD Electronically signed by: Scooter Murillo MD at: 17:23 Procedure Note Scooter Murillo MD - 08/27/2020 PAT NAME: CAMMY BRICENO [facility] REC#: [id number] DA: [id number] PAT GEND: F PAT TYPE: O EXAM PAMELA: [id number] REF PHYS SCOOTER MURILLO Stockholder Comments Only one GS is seen today, [...] GA5 w + 6 d Assigned JOHN:04/22/2021 d Assessment Gestational sac:visualized Location:intrauterine Yolk sac:visualized Embryo:visualized CRL4.4 mm 6w 1d 71% Hadlock Cardiac activity:present [id number] bpm Placenta:Too early to evaluate Maternal Structures Uterus / Cervix Uterus:Visualized Cervix:Visualized Ovaries / Tubes / Adnexa Rt ovary:Visualized Rt ovarian corpus luteum:a well circumscribed unilocular cyst withperipheral Doppler flow is present - typical of a corpus luteum Lt ovary:Visualized Impression ========= Single viable intrauterine with normal cardiac activity The WILDER vs vanishing twin is still present Recommendation Follow-up as clinically indicated. Stockholder: Karolina Adorno RDMS Physician: Scooter Murillo MD [...] documented as of this encounter Care Teams Coke Burner Relationship Specialty Start Date End Date Provider, No Known [facility] [place] [address] PCP - General 03/28/18 03/21/21 documented as of this encounter
--- OUTSIDE RECORDS SUMMARY | 2020-09-13 14:00 | XMS_ITS | Encounter Summary ---
[facility] Address [address] [place] [id number] Care Team Providers Care Textile Converter Name Role Phone Provider, No Known Primary Care Provider Unavail able Reason for Referral * Diagnostic Imaging (Routine) - Closed Specialty Diagnoses / Procedures Referred By Sandraac t Referred To Contact Radiology Diagnoses Threatened miscarriage Procedures US Ob Transvaginal Scooter Olmos MD [address] [place] [address] Phone: tel: fax: [address] [address] Phone: tel: fax: Referral ID Status Reason Start Date Expiration Date Visits Re quested Visits Authorized [id number] Closed 08/26/2020 08/26/2021 1 1 Reason for Visit * Diagnostic Imaging (Routine) - Closed Specialty Diagnoses / Procedures Referred By Jai higgins Referred To Contact Radiology Diagnoses Threatened miscarriage Procedures US Ob Transvaginal Scooter Olmos MD [address] [place] [address] Phone: tel: fax: [address] [address] Phone: tel: fax: Referral ID Status Reason Start Date Expiration Date Visits Re quested Visits Authorized [id number] Closed 08/26/2020 08/26/2021 1 1 Encounter Details Date Type Department Care Team (Latest Contact Info) Description 09/13/2020 2:00 PM EST Hospital Encounter [facility] [address] [place] [address] Threatened miscarriage Social History Tobacco Use Types Packs/Day Years Used Date Smoking Tobacco: Never Smokeless Tobacco: Never Alcohol Use Standard Drinks/Week Comments Not Currently 0 (1 standard drink = 0.6 oz pur e alcohol) SOCIALLY [place] Depression Scale Answer Date Recorded [place] Depression Scale Total 3 04/15/2021 The thought [...] e 06/25/2023 Family and Community Support Answer Laz e Recorded Help with Day-to-Day Activities Not [...] Associated Diagnosis Comments US OB TRANSVAGINAL Routine 09/13/2020 2: 17 PM EST Threatened miscarriage documented in this encounter Results * US Ob Transvaginal (09/13/2020 2:17 PM EST) Anatomical Region Laterality Modality Body Ultrasound 09/13/2020 3:14 PM EST Narrative 09/13/2020 8:39 PM EST PAT NAME: CAMMY BRICENO REC#: [id number] DA: 1995 PAT GEND: F PAT TYPE: O EXAM LAZ: [id number] REF PHYS GURWINDERTERRELLCoreenSCOOTER Indication ======== Dating, Viability Comparison Studies There are no relevant prior studies to which this study is being compared History ====== General History Other: BMI 27.6 Method ======= Transvaginal ultrasound examination, Voluson E6. View: Adequate view ========= Echevarria . Number of fetuses: 1 Single intrauterine present Dating ====== LMP on: 07/16/2020 GA by LMP 8 w + 3 d JOHN by LMP: 04/22/2021 Ultrasound examination on: 09/13/2020 GA by U/S based upon: CRL GA by U/S 9 w + 0 d JOHN by U/S: 04/18/2021 Method of dating: Restore dating from previous exam Previous dating: based on the LMP, selected on 08/26/2020 Agreed JOHN of previous datin04/22/2021 Assigned: based on the LMP, selected on 08/26/2020 Assigned GA 8 w + 3 d Assigned JOHN: 04/22/2021 length 280 d Assessment Gestational sac: visualized Location: intrauterine Yolk sac: visualized Embryo: visualized CRL 22.8 mm 9w 0d >99% Hadlock Cardiac activity: present FHR 182 bpm Placenta: Too early to evaluate Maternal Structures Uterus / Cervix Uterus: Visualized Cervix: Visualized Ovaries / Tubes / Adnexa Rt ovary: Visualized Lt ovary: Visualized Impression ========= Single viable intrauterine with normal cardiac activity and biometry consistent with clinical dates Recommendation Follow-up as clinically indicated. Clinical Nursing Professor: Karolina Adorno RDMS Physician: Radha Watson DO Electronically signed by: Radha Watson DO at: 20:39 Procedure Note Radha Watson DO - 09/13/2020 PAT NAME: CAMMY BRICENO [facility] REC#: [id number] DA: [id number] PAT GEND: F PAT TYPE: O EXAM LAZ: [id number] REF PHYS MIKEDILLONCoreenSCOOTER Indication ======== Dating, Viability Comparison Studies There are no relevant prior studies to which this study is beingcompared History ====== General History Other:BMI 27.6 Method ======= Transvaginal ultrasound examination, Voluson E6. View: Adequate view ========= Echevarria . Number of fetuses: 1 Single intrauterine present Dating ====== LMP on:07/16/2020 GA by LMP8 w + 3 d JOHN by LMP:04/22/2021 Ultrasound examination on:09/13/2020 GA by U/S based upon:CRL GA by U/S9 w + 0 d JOHN by U/S:04/18/2021 Method of dating:Restore dating from previous exam Previous dating:based on the LMP, selected on 08/26/2020 Agreed JOHN of previous datin04/22/2021 Assigned:based on the LMP, selected on 08/26/2020 Assigned GA8 w + 3 d Assigned JOHN:04/22/2021 [id number] d Assessment Gestational sac:visualized Location:intrauterine Yolk sac:visualized Embryo:visualized CRL22.8 mm 9w 0d >99% Hadlock Cardiac activity:present [id number] bpm Placenta:Too early to evaluate Maternal Structures Uterus / Cervix Uterus:Visualized Cervix:Visualized Ovaries / Tubes / Adnexa Rt ovary:Visualized Lt ovary:Visualized Impression ========= Single viable intrauterine with normal cardiac activity andbiometry consistent with clinical dates Recommendation Follow-up as clinically indicated. Clinical Nursing Professor: Karolina Adorno RDMS Physician: Radha Watson DO Electronically signed by: Radha Watson DO at: 20:39 us Scooter Olmos MD [facility] US ORDERABLES Final Re sult documented in this encounter Visit Diagnoses Diagnosis Threatened miscarriage Threatened , unspecified as to episode of care documented in this encounter Additional Health Concerns Infection Onset Date Last Indicated Resolved Time COVID Screen (preop/placement) 04/13/2021 04/13/2021 04/13/2021 6:44 PM EDT documented as of this encounter Care Teams Textile Converter Relationship Specialty Start Date End Date Provider, No Known [facility] [place] [address] PCP - General 03/28/18 03/21/21 documented as of this encounter
--- OUTSIDE RECORDS SUMMARY | 2020-11-10 13:28 | XMS_ITS | Encounter Summary ---
Author Organization [facility] Address [address] [place] [id number] Care Team Providers Care Linux Solaris Administrator Name Role Phone Provider, No Known Primary Care Provider Unavail able Reason for Referral * Diagnostic Imaging (Routine) - Closed Specialty Diagnoses / Procedures Referred By Contac t Referred To Contact Radiology Diagnoses care, subsequent in first trimester Procedures US OB Gender Scan Shamir Olmos MD [address] [place] [address] Phone: tel: fax: [address] [address] Phone: tel: fax: Referral ID Status Reason Start Date Expiration Date Visits Re quested Visits Authorized [id number] Closed 10/13/2020 10/13/2021 1 1 Reason for Visit * Diagnostic Imaging (Routine) - Closed Specialty Diagnoses / Procedures Referred By Contac t Referred To Contact Radiology Diagnoses care, subsequent in first trimester Procedures US OB Gender Scan Shamir Olmos MD [address] [address] Phone: tel: fax: [address] [address] Phone: tel: fax: Referral ID Status Reason Start Date Expiration Date Visits Re quested Visits Authorized [id number] Closed 10/13/2020 10/13/2021 1 1 Encounter Details Date Type Department Care Team (Latest Contact Info) Description 11/10/2020 1:28 PM EST Hospital Encounter [facility] [address] [place] [phone] care, subsequent in first trimester Social History Tobacco Use Types Packs/Day Years Used Date Smoking Tobacco: Never Smokeless Tobacco: Never Alcohol Use Standard Drinks/Week Comments Not Currently 0 (1 standard drink = 0.6 oz pur e alcohol) SOCIALLY [place] Depression Scale Answer Date Recorded [place] Depression Scale Total 3 04/15/2021 The thought [...] documented as of this encounter Care Teams Linux Solaris Administrator Relationship Specialty Start Date End Date Provider, No Known [facility] [place] [address] PCP - General 03/28/18 03/21/21 documented as of this encounter
--- OUTSIDE RECORDS SUMMARY | 2021-04-14 15:00 | XMS_ITS | Encounter Summary ---
Author Organization [facility] Address [address] [place] [address] Care Team Providers Care Tearoom Hostess Name Role Phone System, Provider Not In Primary Care Provider Un available Reason for Referral * Diagnostic Imaging (Routine) - Closed Specialty Diagnoses / Procedures Referred By Contac t Referred To Contact Radiology Diagnoses Decreased movements in third trimester, single or unspecified fetus Procedures US Biophysical Profile;With Non-Stress Testing Sonia Combs DO [facility] [address] [facility] [address] [place] [address] Phone: tel: fax: Referral ID Status Reason Start Date Expiration Date Visits Re quested Visits Authorized [id number] Closed 04/14/2021 04/14/2022 1 1 Reason for Visit * Diagnostic Imaging (Routine) - Closed Specialty Diagnoses / Procedures Referred By Contac t Referred To Contact Radiology Diagnoses Decreased movements in third trimester, single or unspecified fetus Procedures US Biophysical Profile;With Non-Stress Testing Sonia Combs DO [facility] [address] [facility] [address] [place] [address] Phone: tel: fax: Referral ID Status Reason Start Date Expiration Date Visits Re quested Visits Authorized [id number] Closed 04/14/2021 04/14/2022 1 1 Encounter Details Date Type Department Care Team (Latest Contact Info) Description 04/14/2021 4:00 PM EDT Hospital Encounter [facility] [address] [place] [address] [address] [place] [id number] Decreased movements in third trimester, single or unspecified fetus Social History Tobacco Use Types Packs/Day Years Used Date Smoking Tobacco: Never Smokeless Tobacco: Never Alcohol Use Standard Drinks/Week Comments Not Currently 0 (1 standard drink = 0.6 oz pur e alcohol) SOCIALLY [place] Depression Scale Answer Date Recorded [place] Depression Scale Total 3 04/15/2021 The thought [...] 11:34 PM EDT PAT NAME: CAMMY MORENO [facility] REC#: [id number] DA: [id number] PAT GEND: F PAT TYPE: O EXAM PAMELA: [id number] REF PHYS SONIA COMBS Indication ======== Decreased [...] normal BPP Recommendation NST is recommended today. Supervisory Aide: Riana Arredondo [facility] Physician: Shamir Olmos MD Electronically signed by: Shamir Olmos MD at: 23:34 Procedure Note Shamir Olmos MD - 04/14/2021 PAT NAME: CAMMY MORENO [facility] REC#: [id number] DA: [id number] PAT GEND: F PAT TYPE: O EXAM PAMELA: [id number] REF PHYS FISH SONIA Indication ======== Decreased movements in third trimester, single or unspecified fetus[O36.8130 (ICD-10-CM)] Comparison Studies There are no relevant prior studies to which this study is beingcompared Method ======= Voluson E6, Transabdominal ultrasound examination. View: Sufficient ========= Echevarria . Number of fetuses: 1 Dating ====== LMP on:07/16/2020 GA by [email or web address] w + 6 d JOHN by LMP:04/22/2021 GA by prior [id number] w + 6 d JOHN by prior assessment:04/22/2021 Method of dating:Restore dating from previous exam Previous dating:based on the LMP, selected on 03/02/2021 Agreed JOHN of previous datin04/22/2021 Assigned:based on the LMP, selected on 03/02/2021 Assigned [id number] w + 6 d Assigned JOHN:04/22/2021 d General Evaluation Cardiac activity present. FHR [...] normal BPP Recommendation NST is recommended today. Supervisory Aide: Riana Arredondo RDMS Physician: Shamir Olmos MD Electronically signed by: Shamir Olmos MD at: 23:34 us Sonia Combs DO IMG US ORDERABLES Final Re sult documented in this encounter Visit Diagnoses Diagnosis Decreased movements in third trimester, single or unspecified fetus documented in this encounter Care Teams Tearoom Hostess Relationship Specialty Start Date End Date System, [place] [address] PCP - General 03/22/21 documented as of this encounter
[2025-08-10 17:11] LABS: Coronavirus 19, PCR Not Detected (NotDetected); Influenza A, PCR Not Detected (NotDetected); Influenza B, PCR Not Detected (NotDetected)
--- OUTSIDE RECORDS SUMMARY | 2025-08-11 09:02 | XMS_ITS | Encounter Summary ---
[facility] Address [address] [place] [address] Care Team Providers Care Machine Taper Name Role Phone System, Provider Not In Primary Care Provider Un available Encounter Details Date Type Department Care Team (Late st Contact Info) Description 10/15/2013 Conversion Encounter [facility] HISTORICAL CONV [address] [place] [address] Interface, See Report Social History [...] PM EST Clinical Report - Physicians/Mid Levels [facility] Emergency Department [address] [place], [place] [id number] 10/15/2013 Patient: CAMMY COOPER Sex: F : [...] documented as of this encounter Care Teams Machine Taper Relationship Specialty Start Date End Date System, [place] [address] PCP - General 03/22/21 documented as of this encounter
--- OUTSIDE RECORDS SUMMARY | 2025-08-11 09:02 | XMS_ITS | Clinical Summary ---
Author Organization [facility] Address [address] [place] [address] Care Team Providers Care Timber Framer Helper Name Role Phone System, Provider Not In [...] discussed: Circumcision (y / n / na): Cartridge Loading Operator: Baby's name: Breast/bottle feeding: Placental location: Postdates discussed: Tdap discussed: Tdap vaccine received: Flu vaccine discussed: Flu vaccine received: Covid vaccine discussed: Covid vaccine received: Annual LUNCHROOM SUPERVISOR exam w/o problems 09/14/2018 Overview (06/01/2021): SCREENING TESTS Year 2013 2014 2016 2016 2017 2018 2019 2020 2021 2022 2023 2024 2025 2026 2027 2028 2029 2030 2031 2032 Age PAP 6 2-ASCUS 12 - nonDx 9 HPV high risk 2- (+) non 16/18 12 MIKI [Birads] SHAHIDA (5 year) Mikel [place] (lifetime) Colonoscopy DEXA [T-score] Frax [hip/any] [...] Circumcision (y / n / na): na Cartridge Loading Operator: Service Baby's name: Kev Breast/bottle feeding: breast [...] = 0.6 oz pur e alcohol) SOCIALLY Charlotte Depression Scale Answer Date Recorded Charlotte Depression Scale Total 3 04/15/2021 The thought [...] Gynecologic Pelvic and Breast Exam 08/29/2019 08/28/2018 INFLUENZA VACCINE 04/17/2025 07/01/2013, 06/25/2012 TDAP/TD VACCINES (3 - Td [...] MICROBIOLOGY - GENERAL ORDER PERLITA Final Result Performing Organization Address City/[facility]/ZIP Co de Phone Number [facility]
[address] [place] [address], * Hepatitis C Antibody (09/13/2020 4:50 PM [...] BLOOD ORDERABLES Final Result Performing Organization Address [place]/[facility] Co de Phone Number [facility]
[address] [place] [address], from Last 3 Months or Most Recently Relevant to Health Maintenance Insurance [facility] Advance Directives * CPR (Attempt to Resuscitate) [...] pulse or is breathing): Full Care Teams Timber Framer Helper Relationship Specialty Start Date End Date System, [place] [address] PCP - General 03/22/21
== END 2025-08-10 23:59 ==
LOC: LAB.DROPOF 08-11 08:59
PROVIDERS: PCP Nurse Practitioner Family; Visit Provider Nurse Practitioner Family
DX: J02.9 Acute pharyngitis, unspecified (principal); R09.89 Other specified symptoms and signs involving the circulatory and respiratory systems; R51.9 Headache, unspecified; R05.9 Cough, unspecified; R53.83 Other fatigue
CPT/HCPCS: 87631

== ENCOUNTER 2025-08-22 08:40 | Outpatient (CLI) | payer MEDICAID, SELFPAY ==
--- OUTSIDE RECORDS SUMMARY | 2020-08-20 12:44 | XMS_ITS | Encounter Summary ---
[facility] Address [address] [id number] Care Team Providers Care Briar Cutter Name Role Phone Provider, No Known Primary Care Provider Unavail able Reason for Referral * Diagnostic Imaging (Routine) - Closed Specialty Diagnoses / Procedures Referred By Contac t Referred To Contact Radiology Diagnoses Threatened Procedures US Ob Transvaginal Scooter Murillo MD [address] [place] [address] Phone: tel: fax: [address] [address] Phone: tel: fax: Referral ID Status Reason Start Date Expiration Date Visits Re quested Visits Authorized [id number] Closed 08/20/2020 08/20/2021 1 1 Reason for Visit * Diagnostic Imaging (Routine) - Closed Specialty Diagnoses / Procedures Referred By Contac t Referred To Contact Radiology Diagnoses Threatened Procedures US Ob Transvaginal Scooter Murillo MD [address] [place] [address] Phone: tel: fax: [address] [address] Phone: tel: fax: Referral ID Status Reason Start Date Expiration Date Visits Re quested Visits Authorized [id number] Closed 08/20/2020 08/20/2021 1 1 Encounter Details Date Type Department Care Team (Latest Contact Info) Description 08/20/2020 12:44 PM EST Hospital Encounter [facility] [address] [place] [address] Threatened Social History Tobacco Use Types Packs/Day Years Used Date Smoking Tobacco: Never Smokeless Tobacco: Never Alcohol Use Standard Drinks/Week Comments Not Currently 0 (1 standard drink = 0.6 oz pur e alcohol) SOCIALLY [place] Depression Scale Answer Date Recorded [place] Depression Scale Total 3 04/15/2021 The thought of harming myself has occurred to me . Never 04/15/2021 Abuse Screen Answer Date Recorded Unsafe at Home or Work/School Not on file Feels Threatened by Someone? Not on file 05/2023 Does Anyone Keep You from Co ntacting Others or Doint Things Outside the Home? Not on file 06/25/2023 Physical Sign of Abuse Present Not on file 1 Housing Stability Answer Date Recorded Current Living Arrangements Not on file 05/2023 Potentially Unsafe Housing Conditions Not on ben e 06/25/2023 Family and Community Support Answer Pamela e Recorded Help with Day-to-Day Activities Not on file 06/25/2023 Lonely or Isolated Not on file 06/25/2023 Employment Answer Date Recorded Do you want help finding or keeping work or a gary b? Not on file 06/25/2023 Disabilities Answer Date Recorded Concentrating, Remembering, or Making Decisions Difficulty Not on file 06/25/2023 Doing Errands Independently Difficulty Not on fi le 06/25/2023 Education Answer Date Recorded Help with school or training? Not on file Preferred Language Not on file 06/25/2023 Education Answer Date Recorded What is the highest level of school you have completed or the highest degree you have received? High school graduate 11/15/2020 Comments No Sex and Gender Information Value Date Recorded Sex Assigned at Not on file Legal Sex Female 10:55 AM EDT Gender Identity Not on file Sexual Orientation Not on file Occupation Industry Job Start Date Job End Date [employer] Not on file Not on file Not on file documented as of this encounter Plan of Treatment Not on file documented as of this encounter Procedures Procedure Name Priority Date/Time Associated Diagnosis Comments US OB TRANSVAGINAL Routine 08/20/2020 1: 22 PM EST Threatened documented in this encounter Results * US Ob Transvaginal (08/20/2020 1:22 PM EST) Anatomical Region Laterality Modality Body Ultrasound 08/20/2020 1:59 PM EST Narrative 08/25/2020 5:46 PM EST PAT NAME: CAMMY BRICENO [facility] REC#: [id number] DA: [id number] PAT GEND: F PAT TYPE: O EXAM PAMELA: [id number] REF PHYS SCOOTER MURILLO Addendum ========= Notice - Due to Application/Epic Interface issue, exam and impression (on 08/22/2020 ) refinalized - NO Changes to clinical content Indication ======== Threatened [O20.0 (ICD-10-CM)], bleeding w/ Comparison Studies There are no relevant prior studies to which this study is being compared History ====== General History Other: BMI 27.6 Method ======= Transvaginal ultrasound examination, Voluson E6. View: Adequate view ========= Echevarria . Number of gestational sacs: 1 Single intrauterine present Dating ====== LMP on: 07/16/2020 GA by LMP 5 w + 0 d JOHN by LMP: 04/22/2021 Method of dating: based on ultrasound Ultrasound examination on: 08/20/2020 GA by U/S based upon: GS GA by U/S 5 w + 6 d JOHN by U/S: 04/16/2021 Assigned: based on ultrasound (GS), selected on 08/20/2020 Assigned GA 5 w + 6 d Assigned JOHN: 04/16/2021 length 280 d Assessment Gestational sac: visualized GS 11.4 mm 5w 6d 45% Rempen Yolk sac: visualized Embryo: visualized CRL 1.1 mm -/- <1% Hadlock Cardiac activity: absent Placenta: Too early to evaluate Other: Possible bicornuate uterus? Multiple (2) anechoic areas within RT endometrium. Definite yolk sac and possible pole visualized in one sac. Possible yolk sac w/ no pole visualized in other sac. LT endometrium contains anechoic fluid and hyperechoic products. Maternal Structures Uterus / Cervix Uterus: Visualized Cervix: Visualized Ovaries / Tubes / Adnexa Rt ovary: Visualized Lt ovary: Visualized Impression ========= Gestational sac inconsistent w/ dates Probable vanishing twin Recommendation Repeat scan in ~ 1 week Scale Assembly Set Up Worker: Riana Arredondo RDMS Physician: Scooter Murillo MD Electronically signed by: Scooter Murillo MD at: 17:46 Procedure Note Scooter Murillo MD - 08/25/2020 PAT NAME: CAMMY BRICENO [facility] REC#: [id number] DA: [id number] PAT GEND: F PAT TYPE: O EXAM PAMELA: [id number] REF PHYS SCOOTER MURILLO Addendum ========= Notice - Due to Application/Epic Interface issue, exam and impression (on08/22/2020 ) refinalized - NO Changes to clinical content Indication ======== Threatened [O20.0 (ICD-10-CM)], bleeding w/ Comparison Studies There are no relevant prior studies to which this study is beingcompared History ====== General History Other:BMI 27.6 Method ======= Transvaginal ultrasound examination, Voluson E6. View: Adequate view ========= Echevarria . Number of gestational sacs: 1 Single intrauterine present Dating ====== LMP on:07/16/2020 GA by LMP5 w + 0 d JOHN by LMP:04/22/2021 Method of dating:based on ultrasound Ultrasound examination on:08/20/2020 GA by U/S based upon:GS GA by U/S5 w + 6 d JOHN by U/S:04/16/2021 Assigned:based on ultrasound (GS), selected on 08/20/2020 Assigned GA5 w + 6 d Assigned JOHN:04/16/2021 d Assessment Gestational sac:visualized GS11.4 mm 5w 6d 45% Rempen Yolk sac:visualized Embryo:visualized CRL1.1 mm -/- <1% Hadlock Cardiac activity:absent Placenta:Too early to evaluate Other:Possible bicornuate uterus? Multiple (2) anechoic areas within RTendometrium. Definite yolk sac and possible pole visualized in onesac. Possible yolk sac w/ no pole visualized in other sac. LT endometrium contains anechoic fluid and hyperechoic products. Maternal Structures Uterus / Cervix Uterus:Visualized Cervix:Visualized Ovaries / Tubes / Adnexa Rt ovary:Visualized Lt ovary:Visualized Impression ========= Gestational sac inconsistent w/ dates Probable vanishing twin Recommendation Repeat scan in ~ 1 week Scale Assembly Set Up Worker: Riana Arredondo RDMS Physician: Scooter Murillo MD Electronically signed by: Scooter Murillo MD at: 17:46 us Scooter Murillo MD [facility] [place] US ORDERABLES Edited R esult - Final documented in this encounter Visit Diagnoses Diagnosis Threatened documented in this encounter Additional Health Concerns Infection Onset Date Last Indicated Resolved Time COVID Screen (preop/placement) 04/13/2021 04/13/2021 04/13/2021 6:44 PM EDT documented as of this encounter Care Teams Briar Cutter Relationship Specialty Start Date End Date Provider, No Known [facility] [address] PCP - General 03/28/18 03/21/21 documented as of this encounter
--- OUTSIDE RECORDS SUMMARY | 2020-08-26 13:45 | XMS_ITS | Encounter Summary ---
[facility] Address [address] [place] [id number] Care Team Providers Care Youth Coordinator Name Role Phone Provider, No Known Primary Care Provider Unavail able Reason for Referral * Diagnostic Imaging (Routine) - Closed Specialty Diagnoses / Procedures Referred By Sandraac t Referred To Contact Radiology Diagnoses Threatened miscarriage Procedures US Ob Transvaginal Scooter Murillo MD [address] [place] [address] Phone: tel: fax: [address] [address] Phone: tel: fax: Referral ID Status Reason Start Date Expiration Date Visits Re quested Visits Authorized [id number] Closed 08/20/2020 08/20/2021 1 1 Reason for Visit * Diagnostic Imaging (Routine) - Closed Specialty Diagnoses / Procedures Referred By Jai t Referred To Contact Radiology Diagnoses Threatened miscarriage Procedures US Ob Transvaginal Scooter Murillo MD [address] [place] [address] Phone: tel: fax: [address] [address] Phone: tel: fax: Referral ID Status Reason Start Date Expiration Date Visits Re quested Visits Authorized [id number] Closed 08/20/2020 08/20/2021 1 1 Encounter Details Date Type Department Care Team (Latest Contact Info) Description 08/26/2020 1:45 PM EST Hospital Encounter [facility] [place] [address] [place] [address] Threatened miscarriage Social History Tobacco Use Types Packs/Day Years Used Date Smoking Tobacco: Never Smokeless Tobacco: Never Alcohol Use Standard Drinks/Week Comments Not Currently 0 (1 standard drink = 0.6 oz pur e alcohol) SOCIALLY [place] Depression Scale Answer Date Recorded [place] Depression Scale Total 3 04/15/2021 The thought [...] Associated Diagnosis Comments US OB TRANSVAGINAL Routine 08/26/2020 2: 02 PM EST Threatened miscarriage documented in this encounter Results * US Ob Transvaginal (08/26/2020 2:02 PM EST) Anatomical Region Laterality Modality Body Ultrasound 08/26/2020 2:56 PM EST Narrative 08/27/2020 5:23 PM EST PAT NAME: CAMMY BRICENO [facility] REC#: [id number] DA: 1995 PAT GEND: F PAT TYPE: O EXAM PAMELA: [id number] REF PHYS CHIDI SCOOTER Insole Buffer Comments Only one GS is seen today, however there does appear to be a subchorionic hemorrhage. Indication ======== Dating, Viability Comparison Studies The findings of this study are compared to the prior ultrasound study dated 08/20/2020 History ====== General History Other: BMI 27.6 Method ======= Transvaginal ultrasound examination, Voluson E6. View: Adequate view ========= Echevarria . Number of gestational sacs: 1 Single intrauterine present Dating ====== Method of dating: based on the LMP LMP on: 07/16/2020 GA by LMP 5 w + 6 d JOHN by LMP: 04/22/2021 Ultrasound examination on: 08/26/2020 GA by U/S based upon: CRL GA by U/S 6 w + 1 d JOHN by U/S: 04/20/2021 Previous dating: based on ultrasound (GS), selected on 08/20/2020 Agreed JOHN of previous datin04/16/2021 Assigned: based on the LMP, selected on 08/26/2020 Assigned GA 5 w + 6 d Assigned JOHN: 04/22/2021 length 280 d Assessment Gestational sac: visualized Location: intrauterine Yolk sac: visualized Embryo: visualized CRL 4.4 mm 6w 1d 71% Hadlock Cardiac activity: present FHR 119 bpm Placenta: Too early to evaluate Maternal Structures Uterus / Cervix Uterus: Visualized Cervix: Visualized Ovaries / Tubes / Adnexa Rt ovary: Visualized Rt ovarian corpus luteum: a well circumscribed unilocular cyst with peripheral Doppler flow is present - typical of a corpus luteum Lt ovary: Visualized Impression ========= Single viable intrauterine with normal cardiac activity The WILDER vs vanishing twin is still present Recommendation Follow-up as clinically indicated. Insole Buffer: Karolina Adorno RDMS Physician: Scooter Murillo MD Electronically signed by: Scooter Murillo MD at: 17:23 Procedure Note Scooter Murillo MD - 08/27/2020 PAT NAME: CAMMY BRICENO [facility] REC#: [id number] DA: [id number] PAT GEND: F PAT TYPE: O EXAM PAMELA: [id number] REF PHYS SCOOTER MURILLO Insole Buffer Comments Only one GS is seen today, however there does appear to be a subchorionichemorrhage. Indication ======== Dating, Viability Comparison Studies The findings of this study are compared to the prior ultrasound studydated 08/20/2020 History ====== General History Other:BMI 27.6 Method ======= Transvaginal ultrasound examination, Voluson E6. View: Adequate view ========= Echevarria . Number of gestational sacs: 1 Single intrauterine present Dating ====== Method of dating:based on the LMP LMP on:07/16/2020 GA by LMP5 w + 6 d JOHN by LMP:04/22/2021 Ultrasound examination on:08/26/2020 GA by U/S based upon:CRL GA by U/S6 w + 1 d JOHN by U/S:04/20/2021 Previous dating:based on ultrasound (GS), selected on 08/20/2020 Agreed JOHN of previous datin04/16/2021 Assigned:based on the LMP, selected on 08/26/2020 Assigned GA5 w + 6 d Assigned JOHN:04/22/2021 [id number] d Assessment Gestational sac:visualized Location:intrauterine Yolk sac:visualized Embryo:visualized CRL4.4 mm 6w 1d 71% Hadlock Cardiac activity:present [id number] bpm Placenta:Too early to evaluate Maternal Structures Uterus / Cervix Uterus:Visualized Cervix:Visualized Ovaries / Tubes / Adnexa Rt ovary:Visualized Rt ovarian corpus luteum:a well circumscribed unilocular cyst withperipheral Doppler flow is present - typical of a corpus luteum Lt ovary:Visualized Impression ========= Single viable intrauterine with normal cardiac activity The WILDER vs vanishing twin is still present Recommendation Follow-up as clinically indicated. Insole Buffer: Karolina Adorno RDMS Physician: Scooter Murillo MD Electronically signed by: Scooter Murillo MD at: 17:23 us Scooter Murillo MD IMG US ORDERABLES Final Re sult documented in this encounter Visit Diagnoses Diagnosis Threatened miscarriage Threatened , unspecified as to episode of care documented in this encounter Additional Health Concerns Infection Onset Date Last Indicated Resolved Time COVID Screen (preop/placement) 04/13/2021 04/13/2021 04/13/2021 6:44 PM EDT documented as of this encounter Care Teams Youth Coordinator Relationship Specialty Start Date End Date Provider, No Known [facility] [place] [address] PCP - General 03/28/18 03/21/21 documented as of this encounter
--- OUTSIDE RECORDS SUMMARY | 2020-09-13 14:00 | XMS_ITS | Encounter Summary ---
[facility] Address [address] [place] [id number] Care Team Providers Care Oracle Technical Developer Name Role Phone Provider, No Known Primary Care Provider Unavail able Reason for Referral * Diagnostic Imaging (Routine) - Closed Specialty Diagnoses / Procedures Referred By Sandraac t Referred To Contact Radiology Diagnoses Threatened miscarriage Procedures US Ob Transvaginal Scooter Olmos MD [address] [place] [address] Phone: tel: fax: [address] [address] Phone: tel: fax: Referral ID Status Reason Start Date Expiration Date Visits Re quested Visits Authorized [id number] Closed 08/26/2020 08/26/2021 1 1 Reason for Visit * Diagnostic Imaging (Routine) - Closed Specialty Diagnoses / Procedures Referred By Jai higgins Referred To Contact Radiology Diagnoses Threatened miscarriage Procedures US Ob Transvaginal Scooter Olmos MD [address] [place] [address] Phone: tel: fax: [address] [address] Phone: tel: fax: Referral ID Status Reason Start Date Expiration Date Visits Re quested Visits Authorized [id number] Closed 08/26/2020 08/26/2021 1 1 Encounter Details Date Type Department Care Team (Latest Contact Info) Description 09/13/2020 2:00 PM EST Hospital Encounter [facility] [address] [place] [address] Threatened miscarriage Social History Tobacco Use Types Packs/Day Years Used Date Smoking Tobacco: Never Smokeless Tobacco: Never Alcohol Use Standard Drinks/Week Comments Not Currently 0 (1 standard drink = 0.6 oz pur e alcohol) SOCIALLY [place] Depression Scale Answer Date Recorded [place] Depression Scale Total 3 04/15/2021 The thought [...] PM EST PAT NAME: CAMMY BRICENO REC#: [id number] DA: 1995 PAT GEND: F PAT TYPE: O EXAM LAZ: [id number] REF PHYS GURWINDERTERRELLCoreenSCOOTER Indication ======== Dating, Viability [...] clinical dates Recommendation Follow-up as clinically indicated. Agricultural Equipment Test Engineer: Karolina Adorno RDMS Physician: Radha Watson DO Electronically signed by: Radha Watson DO at: 20:39 Procedure Note Radha Watson DO - 09/13/2020 PAT NAME: CAMMY BRICENO [facility] REC#: [id number] DA: [id number] PAT GEND: F PAT TYPE: O EXAM LAZ: [id number] REF PHYS MIKEDILLONCoreenSCOOTER Indication ======== Dating, Viability [...] GA8 w + 3 d Assigned JOHN:04/22/2021 [id number] d Assessment Gestational sac:visualized Location:intrauterine Yolk sac:visualized Embryo:visualized CRL22.8 mm 9w 0d >99% Hadlock Cardiac activity:present [id number] bpm Placenta:Too early to evaluate Maternal Structures Uterus / Cervix Uterus:Visualized Cervix:Visualized Ovaries / Tubes / Adnexa Rt ovary:Visualized Lt ovary:Visualized Impression ========= Single viable intrauterine with normal cardiac activity andbiometry consistent with clinical dates Recommendation Follow-up as clinically indicated. Agricultural Equipment Test Engineer: Karolina Adorno RDMS Physician: Radha Watson DO Electronically signed by: Radha Watson DO at: 20:39 us Scooter Olmos MD [facility] US ORDERABLES Final Re sult documented in this encounter Visit Diagnoses Diagnosis Threatened miscarriage Threatened , unspecified as to episode of care documented in this encounter Additional Health Concerns Infection Onset Date Last Indicated Resolved Time COVID Screen (preop/placement) 04/13/2021 04/13/2021 04/13/2021 6:44 PM EDT documented as of this encounter Care Teams Oracle Technical Developer Relationship Specialty Start Date End Date Provider, No Known [facility] [place] [address] PCP - General 03/28/18 03/21/21 documented as of this encounter
--- OUTSIDE RECORDS SUMMARY | 2020-11-10 13:28 | XMS_ITS | Encounter Summary ---
Author Organization [facility] Address [address] [id number] Care Team Providers Care Regional Business Development Manager Name Role Phone Provider, No Known Primary Care Provider Unavail able Reason for Referral * Diagnostic Imaging (Routine) - Closed Specialty Diagnoses / Procedures Referred By Contac t Referred To Contact Radiology Diagnoses care, subsequent in first trimester Procedures US OB Gender Scan Shamir Olmos MD [address] [place] [address] Phone: tel: fax: [address] [address] Phone: tel: fax: Referral ID Status Reason Start Date Expiration Date Visits Re quested Visits Authorized [id number] Closed 10/13/2020 10/13/2021 1 1 Reason for Visit * Diagnostic Imaging (Routine) - Closed Specialty Diagnoses / Procedures Referred By Contac t Referred To Contact Radiology Diagnoses care, subsequent in first trimester Procedures US OB Gender Scan Shamir Olmos MD [address] [address] Phone: tel: fax: [address] [address] Phone: tel: fax: Referral ID Status Reason Start Date Expiration Date Visits Re quested Visits Authorized [id number] Closed 10/13/2020 10/13/2021 1 1 Encounter Details Date Type Department Care Team (Latest Contact Info) Description 11/10/2020 1:28 PM EST Hospital Encounter [facility] [address] [place] [phone] care, subsequent in first trimester Social History Tobacco Use Types Packs/Day Years Used Date Smoking Tobacco: Never Smokeless Tobacco: Never Alcohol Use Standard Drinks/Week Comments Not Currently 0 (1 standard drink = 0.6 oz pur e alcohol) SOCIALLY [place] Depression Scale Answer Date Recorded [place] Depression Scale Total 3 04/15/2021 The thought [...] Priority Date/Time Associated Diagnosis Comments US OB GENDER SCAN Routine 11/10/2020 1:4 7 PM EST care, subsequent in first trimester documented in this encounter Results * US OB Gender Scan (11/10/2020 1:47 PM EST) Narrative SYSTEMGENERATED, DOCUMENTATION - 11/10/2020 1:47 PM EST This procedure was auto-finalized with no dictation required. us Shamir Olmos MD IMG US ORDERABLES Final Re sult documented in this encounter Visit Diagnoses Diagnosis care, subsequent in first trimester documented in this encounter Additional Health Concerns Infection Onset Date Last Indicated Resolved Time COVID Screen (preop/placement) 04/13/2021 04/13/2021 04/13/2021 6:44 PM EDT documented as of this encounter Care Teams Regional Business Development Manager Relationship Specialty Start Date End Date Provider, No Known [facility] [place] [address] PCP - General 03/28/18 03/21/21 documented as of this encounter
--- OUTSIDE RECORDS SUMMARY | 2021-04-14 15:00 | XMS_ITS | Encounter Summary ---
Author Organization [facility] Address [address] [place] [address] Care Team Providers Care Blast Furnace Keeper Name Role Phone System, Provider Not In Primary Care Provider Un available Reason for Referral * Diagnostic Imaging (Routine) - Closed Specialty Diagnoses / Procedures Referred By Contac t Referred To Contact Radiology Diagnoses Decreased movements in third trimester, single or unspecified fetus Procedures US Biophysical Profile;With Non-Stress Testing Sonia Combs DO [facility] [address] [facility] [address] [place] [address] Phone: tel: fax: Referral ID Status Reason Start Date Expiration Date Visits Re quested Visits Authorized [id number] Closed 04/14/2021 04/14/2022 1 1 Reason for Visit * Diagnostic Imaging (Routine) - Closed Specialty Diagnoses / Procedures Referred By Contac t Referred To Contact Radiology Diagnoses Decreased movements in third trimester, single or unspecified fetus Procedures US Biophysical Profile;With Non-Stress Testing Sonia Combs DO [facility] [address] [facility] [address] [place] [address] Phone: tel: fax: Referral ID Status Reason Start Date Expiration Date Visits Re quested Visits Authorized [id number] Closed 04/14/2021 04/14/2022 1 1 Encounter Details Date Type Department Care Team (Latest Contact Info) Description 04/14/2021 4:00 PM EDT Hospital Encounter [facility] [address] [place] [address] [address] [place] [phone] Decreased movements in third trimester, single or unspecified fetus Social History Tobacco Use Types Packs/Day Years Used Date Smoking Tobacco: Never Smokeless Tobacco: Never Alcohol Use Standard Drinks/Week Comments Not Currently 0 (1 standard drink = 0.6 oz pur e alcohol) SOCIALLY [place] Depression Scale Answer Date Recorded [place] Depression Scale Total 3 04/15/2021 The thought [...] Name Priority Date/Time Associated Diagnosis Comments US BIOPHYSICAL PROFILE;WITH NON-STRESS TESTING Routine 04/14/2021 4:49 PM EDT Decreased movements in third trimester, single or unspecified fetus documented in this encounter Results * US Biophysical Profile;With Non-Stress Testing (04/14/2021 4:49 PM EDT) Anatomical Region Laterality Modality Body Ultrasound 04/14/2021 4:23 PM EDT Narrative 04/14/2021 11:34 PM EDT PAT NAME: CAMMY MORENO [facility] REC#: [id number] DA: [id number] PAT GEND: F PAT TYPE: O EXAM PAMELA: [id number] REF PHYS SONIA COMBS Indication ======== Decreased movements in third trimester, single or unspecified fetus [O36.8130 (ICD-10-CM)] Comparison Studies There are no relevant prior studies to which this study is being compared Method ======= Voluson E6, Transabdominal ultrasound examination. View: Sufficient ========= Echevarria . Number of fetuses: 1 Dating ====== LMP on: 07/16/2020 GA by LMP 38 w + 6 d JOHN by LMP: 04/22/2021 GA by prior assessment 38 w + 6 d JOHN by prior assessment: 04/22/2021 Method of dating: Restore dating from previous exam Previous dating: based on the LMP, selected on 03/02/2021 Agreed JOHN of previous datin04/22/2021 Assigned: based on the LMP, selected on 03/02/2021 Assigned GA 38 w + 6 d Assigned JOHN: 04/22/2021 length 280 d General Evaluation Cardiac activity present. FHR 134 bpm. movements visualized. Presentation cephalic. Placenta Placental site: posterior. Amniotic Fluid Assessment Amount of AF: normal MVP 6.3 cm. TRACEY 16.5 cm. Q1 2.8 cm, Q2 6.3 cm, Q3 3.0 cm, Q4 4.4 cm Biophysical Profile 0: breathing movements 2: Gross body movements 2: tone 2: Amniotic fluid volume 02/22 Biophysical profile score Anatomy Gender: female. Impression ========= Probably normal BPP Recommendation NST is recommended today. Senior Qa Automation Engineer: Riana Arredondo [facility] Physician: Shamir Olmos MD Electronically signed by: Shamir Olmos MD at: 23:34 Procedure Note Shamir Olmos MD - 04/14/2021 PAT NAME: CAMMY MORENO [facility] REC#: [id number] DA: [id number] PAT GEND: F PAT TYPE: O EXAM PAMELA: [id number] REF PHYS FISH SONIA Indication ======== Decreased movements in third trimester, single or unspecified fetus[O36.8130 (ICD-10-CM)] Comparison Studies There are no relevant prior studies to which this study is beingcompared Method ======= [place] E6, Transabdominal ultrasound examination. View: Sufficient ========= Echevarria . Number of fetuses: 1 Dating ====== LMP on:07/16/2020 GA by LMP38 w + 6 d JOHN by LMP:04/22/2021 GA by prior [id number] w + 6 d JOHN by prior assessment:04/22/2021 Method of dating:Restore dating from previous exam Previous dating:based on the LMP, selected on 03/02/2021 Agreed JOHN of previous datin04/22/2021 Assigned:based on the LMP, selected on 03/02/2021 Assigned GA38 w + 6 d Assigned JOHN:04/22/2021 [id number] d General Evaluation Cardiac activity present. FHR 134 bpm. movements visualized. Presentation cephalic. Placenta Placental site: posterior. Amniotic Fluid Assessment Amount of AF: normal MVP 6.3 cm. TRACEY 16.5 cm. Q1 2.8 cm, Q2 6.3 cm, Q3 3.0 cm, Q4 4.4 cm Biophysical Profile 0: breathing movements 2: Gross body movements 2: tone 2: Amniotic fluid volume 02/22 Biophysical profile score Anatomy Gender: female. Impression ========= Probably normal BPP Recommendation NST is recommended today. Senior Qa Automation Engineer: Riana Arredondo RDMS Physician: Shamir Olmos MD Electronically signed by: Shamir Olmos MD at: 23:34 us Sonia Combs DO IMG US ORDERABLES Final Re sult documented in this encounter Visit Diagnoses Diagnosis Decreased movements in third trimester, single or unspecified fetus documented in this encounter Care Teams Blast Furnace Keeper Relationship Specialty Start Date End Date System, [place] [address] PCP - General 03/22/21 documented as of this encounter
--- OUTSIDE RECORDS SUMMARY | 2025-08-22 08:43 | XMS_ITS | Clinical Summary ---
Author Organization [facility] Address [address] [place] [address] Care Team Providers Care Kennel Helper Name Role Phone System, Provider Not [...] discussed: Circumcision (y / n / na): Department Mgr: Baby's name: Breast/bottle feeding: Placental location: Postdates discussed: Tdap discussed: Tdap vaccine received: Flu vaccine discussed: Flu vaccine received: Covid vaccine discussed: Covid vaccine received: Annual COATER ASSOCIATE exam w/o problems 09/14/2018 Overview (06/01/2021): SCREENING [...] Circumcision (y / n / na): na Department Mgr: Service Baby's name: Kev Breast/bottle feeding: breast [...] = 0.6 oz pur e alcohol) SOCIALLY Maxwell Depression Scale Answer Date Recorded Maxwell Depression Scale Total 3 04/15/2021 The thought [...] ORDER PERLITA Final Result Performing Organization Address City/[facility]/ZIP Co de Phone Number [facility]
[address] [place] [address], * Hepatitis C Antibody (09/13/2020 4:50 PM [...] BLOOD ORDERABLES Final Result Performing Organization Address [facility] Co de Phone Number [facility]
[address] [place] [address], from Last 3 Months or Most Recently Relevant to Health Maintenance Insurance [employer] [facility] Advance Directives * CPR (Attempt [...] pulse or is breathing): Full Care Teams Kennel Helper Relationship Specialty Start Date End Date System, [place] [address] PCP - General 03/22/21
--- OUTSIDE RECORDS SUMMARY | 2025-08-22 08:43 | XMS_ITS | Encounter Summary ---
[facility] Address [address] [place] [address] Care Team Providers Care Molding Cutter Name Role Phone System, Provider Not In Primary Care Provider Un available Encounter Details Date Type Department Care Team (Late st Contact Info) Description 10/15/2013 Conversion Encounter [facility] HISTORICAL CONV [address] [place] [address] Interface, See Report Social History [...] PM EST Clinical Report - Physicians/Mid Levels [facility] Emergency Department [address] [place], [place] [id number] 10/15/2013 Patient: CAMMY COOPER Sex: F : [...] documented as of this encounter Care Teams Molding Cutter Relationship Specialty Start Date End Date System, [place] [address] PCP - General 03/22/21 documented as of this encounter
[2025-08-22 09:00] LABS: Hematocrit 36.9 % (37.0-47.0); Hemoglobin 12.8 g/dL (12.2-16.2); Immature Granulocytes % 0.2 %; Mean Corpuscular HGB Conc 34.7 g/dL (31.8-35.4); Mean Corpuscular Hemoglobin 31.5 pg (27.0-31.2); Mean Corpuscular Volume 90.9 fl (81-99); Nucleated Red Blood Cells % 0 %; Platelet Count 354 K/mm3 (142-424); Red Blood Count 4.06 M/mm3 (4.20-5.40); Red Cell Distribution Width-SD 42.0 fL; White Blood Count 8.4 K/mm3 (4.8-10.8)
[2025-08-22 09:45] LABS: Alanine Aminotransferase 15 U/L (12-78); Albumin Level 4.4 g/dl (3.5-5.0); Albumin/Globulin Ratio 1.4 (1.1-1.8); Alkaline Phosphatase 60 U/L (38-126); Anion Gap 11.3 mEq/L (5-15); Aspartate Amino Transferase 20 U/L (14-36); Bilirubin,Total 0.6 mg/dl (0.2-1.3); Blood Urea Nitrogen 12 mg/dl (7-17); Calcium 9.5 mg/dl (8.4-10.2); Carbon Dioxide 25 mmol/L (22.0-30.0); Chloride 104 mmol/L (98-107); Creatinine,Serum 0.60 mg/dl (0.52-1.04); Estimated Glomerular Filt Rate 118 ml/min (>60); GFR (African American) 143 ML/MIN (>60); Globulin 3.1 g/dL (1.3-3.2); Glucose 92 mg/dl (74-100); Potassium 4.3 mmoL/L (3.5-5.1); Sodium 136 mmol/L (136-145); Total Protein,Serum 7.5 g/dl (6.3-8.2)
[2025-08-22 09:58] LABS: 25-OH Vitamin D, Total 20.4 ng/mL (30-100); Free T4 (Free Thyroxine) 1.24 ng/dl (0.78-2.19)
[2025-08-22 10:04] LABS: T4 (Thyroxine) 9.9 ug/dl (5.53-11.0)
[2025-08-22 10:18] LABS: Thyroid Stimulating Hormone 1.78 uIU/mL (0.465-4.68)
[2025-08-22 10:53] LABS: Hemoglobin A1C 5.4 % (4.0-6.0)
[2025-08-22 12:31] LABS: Ferritin 23.6 ng/ml (6.24-137)
[2025-08-22 12:45] LABS: Vitamin B12 449 pg/mL (239-931)
[2025-08-23 07:09] LABS: Triiodothyronine (T3) Free 3.6 pg/mL (2.0-4.4)
[2025-08-23 12:19] LABS: Cortisol,AM 15.1 ug/dL (6.2-19.4)
== END 2025-08-22 23:59 | disposition home or self-care (01) ==
LOC: LAB 08:41
PROVIDERS: PCP Nurse Practitioner Family; Visit Provider Nurse Practitioner Family
DX: D64.9 Anemia, unspecified (principal); F41.9 Anxiety disorder, unspecified; G43.909 Migraine, unspecified, not intractable, without status migrainosus; E04.1 Nontoxic single thyroid nodule; R63.5 Abnormal weight gain
CPT/HCPCS: 36415; 80053; 82306; 82533; 82607; 82728; 83036; 83735; 84436; 84439; 84443; 84481; 85025

== ENCOUNTER 2025-08-25 12:53 | Outpatient (CLI) | payer MEDICAID, SELFPAY ==
[2025-09-03 03:48] LABS: Magnesium,RBC 4.6 mg/dL (3.7-7.0)
== END 2025-08-25 23:59 | disposition home or self-care (01) ==
LOC: LAB.DROPOF 08-27 12:53
PROVIDERS: PCP Nurse Practitioner Family; Visit Provider Nurse Practitioner Family
DX: F41.9 Anxiety disorder, unspecified (principal); G43.909 Migraine, unspecified, not intractable, without status migrainosus
CPT/HCPCS: 83735